=== PATIENT | male | born 1965 | race Caucasian/White ===

== ENCOUNTER 2020-03-28 11:02 | Emergency (ER) | payer MEDICARE, SELFPAY ==
--- NOTE | ~2020-03-28 | CT_ITS ---
EXAMINATION: CT abdomen pelvis w con DATE: 03/28/2020 11:51 INDICATION: Low abdominal pain. Diarrhea. TECHNIQUE: Computed tomography (CT) of the abdomen and pelvis was performed with 100 cc Omnipaque 350 intravenous contrast. Automated exposure control and iterative reconstruction technique were employe d. Exam dose: 1263.23 mGy-cm total exam DLP. COMPARISON: 04/21/2012 CT renal scan FINDINGS: Normal heart size. No pericardial or pleural effusion. There is discoid atelectasis in the lower lung zones. There is surface nodularity of the liver which suggests possible cirrhosis. Clinical correlation is v isualized. Hepatic steatosis. No hepatic space-occupying mass lesion is detected. The gallbladder is present and appears unremarkable. No bile duct or pancreatic duct dilatation. No pancreatic mass lesi on, calcification. Normal splenic size. Normal morphology of the adrenal glands. No renal mass lesion other than possible occasional small cyst is evident. Pinpoint nonobstructing lower pole left renal calculus. No urinary tract calculus or hydroureteroneph rosis is noted otherwise. Normal caliber of the abdominal aorta. No intraperitoneal or retroperitoneal or pelvic mass lesion or adenopathy or ascites is detected. No evidence of appendicitis. No bowel obstruction, bowel wall thickening, pneumatosis or intraperiton eal free air. There is moderate prostatomegaly and diffuse moderate thickening of the urinary bladder wall. Mild chronic appearing anterior wedge compression fracture deformity of T10. IMPRESSION: Surface nodularity of liver suggesting cirrhosis Hepatic steatosis Pinpoint nonobstructing lower pole left renal calculus Reviewed, dictated and finalized at [facility]. Reviewed, dictated and finalized at location A.
[2020-03-28 11:06] VITALS: BP 142/75; PULSE 90; RESP 18; TEMP 36.8; O2SAT 98
--- NOTE | 2020-03-28 11:23 | ED.NAVMDI ---
HPI - Nausea/Vomiting/Diarrhea General Chief complaint: Nausea/Vomiting/Diarrhea Stated complaint: Low Abd Pain Time Seen by Provider: 03/28/20 11:11 Source: patient Mode of arrival: ambulatory Limitations: no limitations History of Present Illness HPI Narrative: Patient presents with chief complaint of worsening diarrhea over the past week. Patient states that he has a history of chronic diarrhea for which he has been controlled with 1 Imodium daily for the past year. Patient states a year ago he had a EGD and colonoscopy which was normal and so he was instructed to take 1 Imodium daily. Patient states of the past week he has been taking 4 Imodium's daily and still has persistent frequent diarrhea. Patient denies the stool is excessively foul-smelling, bloody or with mucus. He states he was pulled off of his metformin 1 year ago as I thought the pain may be the cause he denies any recent antibiotic usage or changes in medications. Patient denies any urinary symptoms shortness of breath chest pain. Patient has any fevers, chills, nausea, vomiting, diarrhea, dizziness or weakness or any other symptoms. Patient states that he is concerned that the lower abdominal pain and persistent diarrhea despite Imodium increase. Related Data Home Medications Medication Instructions Recorded Confirmed atenolol 25 mg PO DAILY 03/28/20 atorvastatin 40 mg PO DAILY 03/28/20 bupropion HCl 200 mg PO DAILY 03/28/20 diazepam 5 mg PO TID PRN 03/28/20 doxepin 200 mg PO DAILY 03/28/20 hydrocodone-acetaminophen 5 - 325 tablet PO 03/28/20 insulin glargine [Lantus U-100 80 unit SUBCUT QPM 03/28/20 Insulin] omeprazole 20 mg PO DAILY 03/28/20 semaglutide [Ozempic] 1 mg SUBCUT WEEKLY 03/28/20 valacyclovir [Valtrex] 1,000 mg PO DAILY 03/28/20 Allergies Allergy/AdvReac Type Severity Reaction Status Date / Time meloxicam Allergy Ulcers Verified 03/28/20 11:14 Review of Systems Review of Systems: Narrative: CONSTITUTIONAL: Denies fever, chills, or sweats. EYES: Denies visual changes, redness, or discharge. ENT: Denies rhinorrhea, congestion, sore throat, or otalgia. CARDIOVASCULAR: Denies chest pain, palpitations, or edema. RESPIRATORY: Denies cough or dyspnea. GASTROINTESTINAL: Reports abdominal pain diarrhea denies nausea, vomiting GENITOURINARY: Denies dysuria or hematuria. SKIN: Denies rash or itching. MUSCULOSKELETAL: Denies back pain, joint pain, or myalgia. NEUROLOGIC: Denies headache, numbness, dizziness, or weakness. PSYCHIATRIC: Denies anxiety or depression. PMFSH Social History Social History Gender identity (if verbalized by the patient): Male Exam Narrative: Exam Narrative: GENERAL: Well-appearing, well-nourished, and in no acute distress. HEAD: Normocephalic, atraumatic. EYES: PERRLA and EOMI. ENT: Nares clear, no rhinorrhea or epistaxis. Mucous membranes moist. Oropharynx without tonsillar hypertrophy exudate or other lesions. Bilateral TMs pearly hansen nonbulging NECK: Supple. No adenopathy or masses. No carotid bruits or JVD CHEST: Clear to auscultation. No respiratory distress. No wheezes rales or rhonchi HEART: Regular rate and rhythm. ABDOMEN: Abdominal obesity noted. Soft, mild diffuse lower abdominal tenderness, no ascites appreciated, active bowel sounds. EXTREMITIES: Normal range of motion. No edema. SKIN: Warm, dry, no rash. NEURO: No focal deficits. Alert and oriented x3. Course Vital Signs Vital signs: Vital Signs Temperature 98.3 F 03/28/20 11:06 Pulse Rate 90 03/28/20 11:06 Respiratory Rate 18 03/28/20 11:06 Blood Pressure 142/75 H 03/28/20 11:06 Pulse Oximetry 98 03/28/20 11:06 Temperature 98.3 F 03/28/20 11:06 Pulse Rate 90 03/28/20 13:39 Respiratory Rate 14 03/28/20 13:39 Blood Pressure 142/72 H 03/28/20 13:39 Pulse Oximetry 98 03/28/20 13:39 MDM - Nausea/Vomiting/Diarrhea MDM Narrative Medical decision making narrative: Patient does not sh
[2020-03-28 11:34] LABS: Basophils Absolute Auto 0.1 K/mm3 (0.0-0.1); Basophils Percent Auto 0.8 % (0.2-1.2); Eosinophils Absolute Auto 0.2 K/mm3 (0-0.3); Eosinophils Percent Auto 2.1 % (0-4.4); Hematocrit 43.6 % (42.0-52.0); Hemoglobin 15.2 g/dL (14.0-18.0); Immature Granulocyte Absolute 0.03 K/mm3 (0.00-0.031); Immature Granulocyte Percent A 0.3 % (0-0.5); Immature Platelet Fraction Pct 4.6 % (0.9-11.2); Lymphocytes Absolute Auto 3.01 K/mm3 (0.9-3.2); Lymphocytes Percent Auto 32.9 % (18.3-44.2); Mean Corpuscular HGB Conc 34.9 g/dl (32-36); Mean Corpuscular Hemoglobin 33.4 pg (26-34); Mean Corpuscular Volume 95.8 fl (80-100); Mean Platelet Volume 10.9 fl (7.4-10.4); Monocytes Absolute Auto 0.8 K/mm3 (0.1-0.6); Monocytes Percent Auto 9.1 % (2.6-8.5); Neutrophils Percent Auto 54.8 % (45.5-73.1); Platelet Count Result 142 k/mm3 (150-375); Red Blood Count 4.55 M/mm3 (4.6-6.20); Red Cell Distribution Width 12.2 % (11.5-14.5); White Blood Count 9.2 K/mm3 (4.5-10.0)
[2020-03-28 11:44] LABS: Estimated CRCL calculation 123 ml/min; Estimated Glomerular Filt Rate > 60
[2020-03-28 11:51] LABS: Alanine Aminotransferase 41 U/L (4-50); Albumin Level 4.3 g/dL (3.5-5.1); Alkaline Phosphatase 122 U/L (38-126); Anion Gap 9 mmol/L (8-16); Aspartate Amino Transferase 44 U/L (17-59); Bilirubin,Total 0.5 mg/dL (0.2-1.3); Blood Urea Nitrogen 9 mg/dL (9-20); Calcium 8.6 mg/dL (8.4-10.2); Carbon Dioxide 24 mmol/L (22-30); Chloride 102 mmol/L (98-107); Estimated CRCL calculation 123 ml/min; Estimated Glomerular Filt Rate > 60; Glucose 290 mg/dL (75-110); Lipase 51 U/L (23-300); Potassium 3.6 mmol/L (3.4-5.0); Sodium 135 mmol/L (137-145)
[2020-03-28 12:55] LABS: Add Urine Microscopic? YES; Appearance Urine Clear (Clear); Bilirubin Urine Negative (Negative); Blood Urine Negative (Negative); Color Urine Yellow (Yellow); Glucose Urine UA 3+ mg/dL (Negative); Ketones Urine Negative (Negative); Leukocyte Esterase Ur Negative LEU/UL (Negative); Mucus Urine Rare /lpf; Nitrate Urine Negative (Negative); Protein Urine 1+ mg/dL (Negative); RBC Urine 0-2 /hpf (0-2); Specific Grav Ur 1.028 (1.001-1.035); Squamous Epithelial Cell Urine Rare /hpf (Few); Urobilinogen Urine Negative mg/dL (<2.0); WBC Urine 0-3 /hpf
[2020-03-28 13:39] VITALS: BP 142/72; PULSE 90; RESP 14; O2SAT 98
== END 2020-03-28 13:40 | disposition home or self-care (01) ==
PROVIDERS: Emergency Provider Emergency Medicine
DX: R19.7 Diarrhea, unspecified (principal); Z79.84 Long term (current) use of oral hypoglycemic drugs
CPT/HCPCS: 36415; 74177; 80053; 81001; 83690; 85025; 85055; 99284; Q9967

== ENCOUNTER 2021-01-29 13:41 | Outpatient (CLI) | payer MEDICARE, SELFPAY ==
--- NOTE | ~2021-01-29 | XR_ITS ---
EXAMINATION: XR knee LT min 4V DATE: 01/29/2021 14:22 INDICATION: Left knee pain. TECHNIQUE: 4 views of left knee were obtained. COMPARISON: None. FINDINGS: Bone alignment is normal. No fracture. There is mild tricompartmental osteoarthritis charac terized by tiny marginal osteophytes. No knee joint effusion. IMPRESSION: 1. Mild left knee osteoarthritis. Reviewed, dictated and finalized at location A.
--- NOTE | ~2021-01-29 | XR_ITS ---
XR lumbar spine 2-3V DATE: 01/29/2021 14:22 INDICATION: Low back pain TECHNIQUE: AP, lateral, coned lateral lumbosacral views COMPARISON: None FINDINGS: Diffuse osteopenia. Mild levoscoliosis of the thoracolumbar spine. There is an acute lumbosacral angle. No fracture or bone destruction is evident. The included lower thoracic and lumbar pedicles are intac t. No spondylolisthesis. There is mild to moderate degenerative disc disease of the lumbar spine, most prominent at L3-4. The sacroiliac joints are intact. IMPRESSION: Osteopenia Mild levoscoliosis Acute lumbosacral angle Multilevel moderate degenerative disc disease, greatest at L3-4 Reviewed, dictated and finalized at location B.
--- NOTE | ~2021-01-29 | XR_ITS ---
EXAMINATION:XR cervical spine 4-5V DATE: 01/29/2021 14:22 INDICATION: Neck pain TECHNIQUE: AP, lateral, lateral swimmers and odontoid views of the cervical spine are provided. COMPARISON: None FINDINGS: Alignment is normal. Odontoid is intact. Normal atlantoaxial interval. Vertebral body heights are no rmal. Mild disc height loss at C5-C6 and moderate disc height loss at C6-C7 with moderate to severe a ssociated uncovertebral osteoarthritis at both levels. Multilevel moderate bilateral cervical facet o steoarthritis. Prevertebral soft tissues are normal. Atherosclerotic calcification is at the bilater al carotid bulbs. IMPRESSION: 1. Moderate cervical spondylosis. Reviewed, dictated and finalized at location A.
--- NOTE | ~2021-01-29 | XR_ITS ---
EXAMINATION: XR knee RT min 4V DATE: 01/29/2021 14:22 INDICATION: Right knee pain. TECHNIQUE: 4 views of right knee were obtained. COMPARISON: None. FINDINGS: Bone alignment is normal. No fracture. There is mild osteoarthritis of medial and patellofe moral compartments characterized by tiny marginal osteophytes. No knee joint effusion. IMPRESSION: 1. Mild right knee osteoarthritis. Reviewed, dictated and finalized at location A.
[2021-01-29 15:07] LABS: Alanine Aminotransferase 46 U/L (4-50); Albumin Level 4.6 g/dL (3.5-5.1); Alkaline Phosphatase 125 U/L (38-126); Anion Gap 10 mmol/L (8-16); Aspartate Amino Transferase 51 U/L (17-59); Bilirubin,Total 0.5 mg/dL (0.2-1.3); Blood Urea Nitrogen 12 mg/dL (9-20); Calcium 9.8 mg/dL (8.4-10.2); Carbon Dioxide 26 mmol/L (22-30); Chloride 101 mmol/L (98-107); Estimated Glomerular Filt Rate > 60; Glucose 213 mg/dL (75-110); Potassium 4.1 mmol/L (3.4-5.0); Sodium 137 mmol/L (137-145)
== END 2021-01-29 13:42 | disposition home or self-care (01) ==
PROVIDERS: PCP Emergency Medicine; Visit Provider Registered Nurse Pain Management
DX: M54.16 Radiculopathy, lumbar region (principal); M54.30 Sciatica, unspecified side; M54.2 Cervicalgia; R20.0 Anesthesia of skin; M47.812 Spondylosis without myelopathy or radiculopathy, cervical region; M85.88 Other specified disorders of bone density and structure, other site; M41.86 Other forms of scoliosis, lumbar region; M51.37 Other intervertebral disc degeneration, lumbosacral region; M17.0 Bilateral primary osteoarthritis of knee
CPT/HCPCS: 36415; 72050; 72100; 73564; 80053

== ENCOUNTER 2021-03-06 15:57 | Outpatient (CLI) | payer MEDICARE, SELFPAY ==
--- NOTE | ~2021-03-06 | MR_ITS ---
EXAMINATION: MR lumbar spine wo/w con DATE: 03/06/2021 16:52 INDICATION: Lumbar radicular pain. Low back pain radiating to the right leg and foot. TECHNIQUE: Magnetic resonance imaging (MRI) of the lumbar spine was performed without and with 19 mL MultiHance intravenous contrast. Sequences included sagittal T2-weighted FSE, sagittal T2-weighted FS FSE, and sagittal and axial T1-weighted FSE. Postcontrast sequences included axial T2-weighted FSE a nd axial and sagittal T1-weighted FS FSE. COMPARISON: Lumbar spine radiographs 01/29/2021 FINDINGS: There is 8 degrees levocurvature of lumbar spine. There are Schmorl's nodes from T12-L1 thr ough L2-L3. There is a chronic left L5 pars defect. There is mildly decreased disc height at L3-L4 an d L4-L5. The distal spinal cord signal intensity is normal. The conus medullaris is at T11-T12. There are areas of enhancement in the right erector spinae muscles. The following disc levels are specific ally discussed: L1-L2: There is a left foraminal protrusion. There is mild bilateral facet joint osteoarthritis. Ther e is mild left neural foraminal stenosis. There is no central canal stenosis. L2-L3: The disc is bulging. There is mild bilateral facet joint osteoarthritis. There is mild bilater al neural foraminal stenosis. There is no central canal stenosis. L3-L4: The disc is bulging. There is mild bilateral facet joint osteoarthritis. There is moderate rig ht and mild left neural foraminal stenosis. There is mild central canal stenosis. L4-L5: The disc is bulging. There is severe bilateral facet joint osteoarthritis. There is mild bilat eral neural foraminal stenosis. There is mild central canal stenosis. L5-S1: The disc does not extend beyond the endplate margin. There is mild right and severe left facet joint osteoarthritis. There is no neural foraminal stenosis. There is no central canal stenosis. IMPRESSION: 1. Areas of enhancement in the right erector spinae muscles, most likely mild strain (grade 1). 2. Moderate right neural foraminal stenosis at L3-L4. Otherwise mild lumbar spondylosis. 3. Chronic left L5 pars defect. Reviewed, dictated and finalized at location D. IMPRESSION: 1. Areas of enhancement in the right erector spinae muscles, most likely mild s train (grade 1). 2. Moderate right neural foraminal stenosis at L3-L4. Otherwise mild lumbar spo ndylosis. 3. Chronic left L5 pars defect.
[2021-03-06 16:22] LABS: Estimated Glomerular Filt Rate > 60
== END 2021-03-06 15:58 | disposition home or self-care (01) ==
LOC: ANHIMG 15:58
PROVIDERS: PCP Emergency Medicine; Visit Provider Pain Medicine Pain Medicine
DX: M54.16 Radiculopathy, lumbar region (principal); M48.061 Spinal stenosis, lumbar region without neurogenic claudication; M47.816 Spondylosis without myelopathy or radiculopathy, lumbar region; M43.8X6 Other specified deforming dorsopathies, lumbar region
CPT/HCPCS: 72158; A9577

== ENCOUNTER 2022-07-04 08:29 | Outpatient (CLI) | payer MEDICARE, SELFPAY ==
--- NOTE | ~2022-07-04 | MR_ITS ---
EXAMINATION: MR cervical spine wo con DATE: 07/04/2022 09:18 INDICATION: Chronic neck and right shoulder pain. TECHNIQUE: Magnetic resonance imaging (MRI) of the cervical spine was performed without intravenous c ontrast. Sequences included sagittal T2-weighted FSE, sagittal T2-weighted FS FSE, sagittal T1-weight ed FSE, axial MERGE, and axial T2-weighted FSE. COMPARISON: Cervical spine radiographs 01/29/2021 FINDINGS: There is kyphosis and 11 degrees levoscoliosis of cervical spine. Vertebral body heights ar e normal. There is mildly decreased disc height at C4-C5 and moderately decreased disc height at C5-C 6 and C6-C7. The spinal cord signal intensity is normal. The following disc levels are specifically d iscussed: C2-C3: The disc does not extend beyond the endplate margin. There is no uncovertebral joint osteoarth ritis. There is severe bilateral facet joint osteoarthritis. There is mild bilateral neural foraminal stenosis. There is no central canal stenosis. C3-C4: The disc does not extend beyond the endplate margin. There is mild bilateral uncovertebral bossman nt osteoarthritis. There is severe bilateral facet joint osteoarthritis. There is moderate right neur al foraminal stenosis. There is no central canal stenosis. C4-C5: There is a central extrusion. There is mild bilateral uncovertebral joint osteoarthritis. Ther e is mild bilateral facet joint osteoarthritis. There is mild bilateral neural foraminal stenosis. Th ere is mild central canal stenosis with ventral indentation of the spinal cord. C5-C6: The disc is bulging. There is moderate bilateral uncovertebral joint osteoarthritis. There is moderate bilateral facet joint osteoarthritis. There is mild bilateral neural foraminal stenosis. The re is mild central canal stenosis with ventral indentation of the spinal cord. C6-C7: The disc is bulging. There is severe bilateral uncovertebral joint osteoarthritis. There is mo derate bilateral facet joint osteoarthritis. There is mild bilateral neural foraminal stenosis. There is mild central canal stenosis. C7-T1: The disc is bulging. There is no uncovertebral joint osteoarthritis. There is severe bilateral facet joint osteoarthritis. There is mild bilateral neural foraminal stenosis. There is mild central canal stenosis. IMPRESSION: 1. Moderate cervical spondylosis. 2. Cervical kyphosis and levoscoliosis. Reviewed, dictated and finalized at location A. SPECIALIST
== END 2022-07-04 08:30 ==
LOC: MICIMG 08:31
PROVIDERS: PCP Emergency Medicine
DX: M54.2 Cervicalgia (principal); M43.02 Spondylolysis, cervical region; M40.292 Other kyphosis, cervical region
CPT/HCPCS: 72141

== ENCOUNTER 2023-05-12 12:53 | Outpatient (CLI) | payer MEDICARE, SELFPAY ==
--- NOTE | ~2023-05-12 | CT_ITS ---
EXAMINATION:CT lung screening DATE: 05/12/2023 13:12 INDICATION: Personal history of nicotine dependence. Current smoker with 30 pack year history. TECHNIQUE: Computed tomography (CT) of the chest was performed without intravenous contrast. Automate d exposure control and iterative reconstruction technique were employed. The dose-length product (DLP ) was 294.59 mGy-cm. COMPARISON: CT abdomen and pelvis 03/28/2020 FINDINGS: There is mild emphysema. There is mild atelectasis bilaterally. Calcified left lung nodules and calcified left hilar lymph nodes are consistent with old granulomatous disease. No pleural effus ion. The heart size is normal. There are coronary artery calcifications. No pericardial effusion. Aga in seen is a large surface nodularity, consistent with cirrhosis. There is severe thoracic spondylosi s. There is a chronic compression fracture of T11. IMPRESSION: 1. Lung-RADS category 1S: Negative. Continue annual screening with noncontrast low-dose chest CT in 1 2 months. 2. Cirrhosis of the liver. Reviewed, dictated and finalized at location E. IMPRESSION: 1. Lung-RADS category 1S: Negative. Continue annual screening with noncontrast low-dose chest CT in 12 months. 2. Cirrhosis of the liver.
== END 2023-05-12 12:54 | disposition home or self-care (01) ==
LOC: ANHIMG 12:57
PROVIDERS: PCP Emergency Medicine; Visit Provider Emergency Medicine
DX: Z12.2 Encounter for screening for malignant neoplasm of respiratory organs (principal); K74.60 Unspecified cirrhosis of liver; Z87.891 Personal history of nicotine dependence
CPT/HCPCS: 71271

== ENCOUNTER 2023-05-27 08:50 | Outpatient (CLI) | payer MEDICARE, SELFPAY ==
--- NOTE | ~2023-05-27 | CT_ITS ---
EXAMINATION: CT abdomen pelvis w con INDICATION: Other cirrhosis of the liver TECHNIQUE: Computed tomographic images of the abdomen and pelvis were obtained after the administrati on of 100 cc of Omnipaque 350 intravenous contrast. The dose-length product (DLP) was 1069.95 mGy-cm. Automated exposure control and iterative reconstruction technique were employed. COMPARISON: 03/28/2020 FINDINGS: Minimal dependent atelectasis is present in the lung bases. The heart size is normal. There is nodularity of the liver surface, consistent with cirrhosis. There is a questionable subcapsular 6 mm enhancing lesion in liver segment (image 81). Punctate calcifications in an otherwise normal s pleen likely represent healed granulomatous disease. The pancreas, gallbladder, and adrenal glands ar e normal. Hypoattenuating lesions in the kidneys, measuring up to 8 mm on the left, are too small to characterize but likely represent cysts. There is mild, chronic periportal lymphadenopathy. No free i ntraperitoneal gas or evidence of bowel obstruction. The appendix is normal. There is moderate lumbar spondylosis. There is an umbilical hernia containing fat. IMPRESSION: 1. Cirrhosis with questionable enhancing subcapsular lesion in liver segment . Further evaluation b y MRI without and with contrast is recommended. 2. Chronic periportal lymphadenopathy, likely reactive. Reviewed, dictated and finalized at location L. STATION MANAGER IMPRESSION: 1. Cirrhosis with questionable enhancing subcapsular lesion in liver segment . Further evaluation by MRI without and with contrast is recommended. 2. Chronic periportal lymphadenopathy, likely reactive.
[2023-05-27 09:14] LABS: Estimated Glomerular Filt Rate > 60
== END 2023-05-27 08:51 | disposition home or self-care (01) ==
PROVIDERS: PCP Emergency Medicine; Visit Provider Emergency Medicine
DX: K74.69 Other cirrhosis of liver (principal); R59.0 Localized enlarged lymph nodes
CPT/HCPCS: 74177; Q9967

== ENCOUNTER 2023-06-14 12:46 | Outpatient (CLI) | payer MEDICARE, SELFPAY ==
--- NOTE | ~2023-06-14 | XR_ITS ---
EXAMINATION: XR hip RT min 2V DATE: 06/14/2023 14:12 INDICATION: Nontraumatic right hip pain TECHNIQUE: Anteroposterior and frog-leg lateral views of the right hip were obtained. COMPARISON: CT abdomen pelvis dated 06/06/2023 FINDINGS: Alignment is normal. No fracture or suspected osteonecrosis. Mild left hip osteoarthritis with and mi ld posterior predominant nonuniform joint space narrowing which is better appreciated on the prior CT . There is also mild bilateral sacroiliac osteoarthritis. Small phlebolith in the right hemipelvis. IMPRESSION: 1. Mild right hip and bilateral sacral iliac osteoarthritis. No acute osseous abnormality. Reviewed, dictated and finalized at location A. ARISON SHOPPER IMPRESSION: 1. Mild right hip and bilateral sacral iliac osteoarthritis. No acute osseous a bnormality.
--- NOTE | ~2023-06-14 | MR_ITS ---
EXAMINATION: MR abdomen wo/w con DATE: 06/14/2023 14:00 INDICATION: Hepatic focal nodular hyperplasia TECHNIQUE: Magnetic resonance imaging (MRI) of the abdomen was performed without and with 17 mL Multi dee intravenous contrast. Sequences included coronal T2-weighted SS-FSE, coronal and axial FS 2D-F IESTA, axial STIR FSE, axial T2-weighted SS-FSE, axial T2-weighted FS SS-FSE, axial diffusion-weighte d SE, axial dual-echo T1-weighted FSPGR, and axial and coronal T1-weighted LAVA. Postcontrast axial T 1-weighted LAVA images were obtained in a time course. Postcontrast coronal T1-weighted LAVA images w ere obtained. COMPARISON: CT abdomen pelvis dated 06/06/2023 and 03/28/2020 FINDINGS: Heart size is normal. No pericardial or pleural effusion. Cirrhotic liver with nodular surface. Again seen is a subcentimeter ill-defined focus of nonperipheral arterial phase enhancement at the lateral subcapsular region of the right hepatic lobe which normalizes to the level of enhancement of the molly rounding liver on the more delayed images which is without correlate on the noncontrast sequences. Th ere is a second subcapsular nonperipheral arterially enhancing lesion anterior segment 2 of the liver . Both are without evident capsule or washout. Findings would be consistent with a LI-RADS 3 lesions. There is a third slightly larger lesion with nonperipheral arterial phase enhancement measuring 1.8 cm on the arterial phase image corresponding to an 11 mm region of increased T2 signal in segment 2A of the liver which is also without discernible capsule or washout and also consistent with a LI-RADS 3 lesion. No other hepatic lesions identified. The spleen, pancreas and bilateral adrenal glands are normal. There are few subcentimeter T2 hyperintense nonenhancing bilateral renal cysts. Visualized po rtions of bowels are unremarkable. Again seen are couple mildly enlarged periportal lymph nodes which are without interval change since 2019 and are likely reactive. No other pathologically enlarged abd ominal lymphadenopathy. 13 degrees lumbar levoscoliosis with mild spondylosis. Normal bone marrow sig nal throughout. IMPRESSION: 1. Cirrhotic liver with 3 LI-RADS 3 lesions with intermediate probability of malignancy, the largest measuring 1.8 cm. Recommend repeat pre and postcontrast MRI in 3-6 months. Reviewed, dictated and finalized at location A. ITECT INTERN IMPRESSION: 1. Cirrhotic liver with 3 LI-RADS 3 lesions with intermediate probability of ma lignancy, the largest measuring 1.8 cm. Recommend repeat pre and postcontrast M RI in 3-6 months.
== END 2023-06-14 12:47 | disposition home or self-care (01) ==
PROVIDERS: PCP Emergency Medicine; Visit Provider Emergency Medicine
DX: K76.89 Other specified diseases of liver (principal); M16.0 Bilateral primary osteoarthritis of hip
CPT/HCPCS: 73502; 74183; A9577

== ENCOUNTER 2023-07-06 00:11 | Day surgery (SDC) | payer MEDICARE, SELFPAY ==
[2023-06-18 13:39] VITALS: BMI 30.1
--- NOTE | 2023-07-02 10:35 | SUR.PREOP ---
Patient called regarding upcoming procedure. Message left on pt's voicemail regarding appointment times.
[2023-07-06 08:58] VITALS: BP 151/74; PULSE 98; RESP 20; TEMP 36.3; O2SAT 98; BMI 32.9
--- NOTE | 2023-07-06 09:06 | SUR.PREOP ---
MD Armando aware. no new orders. will continue with procedure.
[2023-07-06] MEDS: LACTATED RINGERS 1,000 ML 150 ML IV CONT (09:24)
[2023-07-06 09:27] LABS: Glucose Point of Care 120 mg/dl (65-105)
--- NOTE | 2023-07-06 09:27 | WPDANESEPPF ---
Anes - Initial Pre Proc Eval Procedure: Operation Date: 07/06/23 10:30 Proposed Procedures p Esophagogastroduodenoscopy & Colonoscopy - Joao Doll MD Date/Time: 07/06/23 09:27 Surgeon: Joao Doll MD Pre Op Diagnosis: GERD,gastric ulcer,weightloss,hx of polyps Patient Data Age: 58 Gender: M Height: 1.68 m Weight: 92.6 kg Last Vital Signs Temp 36.3 C L 07/06/23 08:58 Pulse 98 07/06/23 08:58 Resp 20 07/06/23 08:58 BP 151/74 H 07/06/23 08:58 Pulse Ox 98 07/06/23 08:58 O2 Del Method Room Air 07/06/23 08:58 Allergies Allergy/AdvReac Type Severity Reaction Status Date / Time meloxicam Allergy Ulcers Verified 07/06/23 08:57 Home Medications Medication Instructions Recorded Confirmed Type atenolol 25 mg tablet 25 mg PO DAILY 03/28/20 06/18/23 History bupropion HCl 200 mg tablet,12 hr 200 mg PO DAILY 03/28/20 06/18/23 History sustained-release diazepam 5 mg tablet 5 mg PO TID PRN Anxiety 03/28/20 06/18/23 History doxepin 100 mg capsule 200 mg PO DAILY 03/28/20 06/18/23 History hydrocodone 5 mg-acetaminophen 325 1 tablet PO BID 03/28/20 06/18/23 History mg tablet insulin glargine 100 unit/mL 80 unit subcut QPM 03/28/20 06/18/23 History subcutaneous solution (Lantus U-100 Insulin) omeprazole 20 mg capsule,delayed 20 mg PO DAILY 03/28/20 06/18/23 History release semaglutide 1 mg/dose (2 mg/1.5 1 mg subcut WEEKLY 03/28/20 06/18/23 History mL) subcutaneous pen injector (Ozempic) valacyclovir 1 gram tablet 1,000 mg PO DAILY 03/28/20 06/18/23 History (Valtrex) gabapentin 300 mg capsule 300 mg PO DAILY 05/18/23 06/18/23 History Patient hx anesthesia problems: none Family hx anesthesia problems: none Results Review: All pre-operative results and documents have been reviewed as part of the pre-operative evaluation. [facility] Past Medical History Medical History (Updated 07/06/23 @ 09:28 by Wei Armando MD) Diabetes HTN (hypertension) Myocardial infarct Obesity DOUG (obstructive sleep apnea) Social History Social History Smoking packs per day: 1.5 Smoking cigarettes per day: 30.0 Years smoked: 30 Smoking pack-years: 45.00 Smoking status: Former smoker Tobacco type: cigarettes Alcohol intake: former Alcohol use details: Hx of alcohol abuse in the 80's & 90's. Vodka or Rum 5th a day Substance use: current Substance use type: opiates Other substance usage details: hydrocodone 5-acetaminophen 325 bid to tid Living arrangements: alone Gender identity (if verbalized by the patient): Male Sexual Orientation (if Verbalized by the Patient): Straight or Heterosexual Spiritual care concerns: No Anes - Eval Final PreProcedure Day of Procedure 07/06/23 09:27 Patient weight: obese Heart: regular rate and rhythm Lungs: clear to auscultation Airway: Mallampati scale class III Neurological: alert and oriented Last oral intake: >/= 8 hours ASA classification: III Emergent: no Anesthetic plan: proceed Anesthesia type and monitoring: general GIVS and standard monitoring Results Review: All pre-operative results and documents have been reviewed as part of the pre-operative evaluation. Informed Consent: The patient's anesthetic plan and its attendant risks and benefits were discussed with the patient/family/POA. Questions were solicited and answers provided to the satisfaction of the patient/family/POA.
--- NOTE | 2023-07-06 10:09 | PM.HPGS ---
History of Present Illness History of Present Illness Consent: Risks, benefits, and alternatives have been discussed and questions answered. Patient agrees to proceed with procedure. Chief complaint: GERD,gastric ulcer,weightloss,hx of polyps Narrative: Lupillo Tariq Jr. is a 58 year old male with gerd on ppi, DM on medication. Recently incidental finding of cirrhosis (denies alcohol, probably zamudio related) and he was already referred to see gem stone cutter for early next year. Also h/o diarrhea for about 1.5 year and he is getting creon from [email or web address], this is helping. Had colon polyp about 4.5 years ago. Review of Systems Constitutional: Constitutional: Denies headache(s) and Denies weakness Eyes: Eyes: Denies blurry vision ENT: Reports Normal hearing present, Denies headache(s) and Denies neck pain Cardiovascular: Cardiovascular: Denies chest pain and Denies dyspnea Respiratory: Respiratory: Denies dyspnea Gastrointestinal: Gastrointestinal: Reports no additional gastrointestinal complaints Genitourinary: Genitourinary: Denies dysuria Musculoskeletal: Musculoskeletal: Denies neck pain Integumentary/Breasts: Skin/Breast: Denies dry skin Neurologic: Reports Normal hearing present, Denies headache(s) and Denies weakness Psychiatric: Psychiatric: Denies anxiety Endocrine: Endocrine: Denies change in body appearance Hematologic/Lymphatic: Hematologic/Lymphatic: Denies easy bleeding Allergic/Immunologic: Allergic/Immunologic: Denies urticaria PMFSH Past Medical History Medical History (Updated 07/06/23 @ 10:11 by Joao Doll MD) Cirrhosis Colon polyp Diabetes GERD (gastroesophageal reflux disease) HTN (hypertension) Myocardial infarct Obesity DOUG (obstructive sleep apnea) Social History Social History Smoking packs per day: 1.5 Smoking cigarettes per day: 30.0 Years smoked: 30 Smoking pack-years: 45.00 Smoking status: Former smoker Tobacco type: cigarettes Alcohol intake: former Alcohol use details: Hx of alcohol abuse in the 80's & 90's. Vodka or Rum 5th a day Substance use: current Substance use type: opiates Other substance usage details: hydrocodone 5-acetaminophen 325 bid to tid Living arrangements: alone Gender identity (if verbalized by the patient): Male Sexual Orientation (if Verbalized by the Patient): Straight or Heterosexual Spiritual care concerns: No Meds Home Medications and Allergies Home Medications Medication Instructions Recorded Confirmed Type atenolol 25 mg tablet 25 mg PO DAILY 03/28/20 06/18/23 History bupropion HCl 200 mg tablet,12 hr 200 mg PO DAILY 03/28/20 06/18/23 History sustained-release diazepam 5 mg tablet 5 mg PO TID PRN Anxiety 03/28/20 06/18/23 History doxepin 100 mg capsule 200 mg PO DAILY 03/28/20 06/18/23 History hydrocodone 5 mg-acetaminophen 325 1 tablet PO BID 03/28/20 06/18/23 History mg tablet insulin glargine 100 unit/mL 80 unit subcut QPM 03/28/20 06/18/23 History subcutaneous solution (Lantus U-100 Insulin) omeprazole 20 mg capsule,delayed 20 mg PO DAILY 03/28/20 06/18/23 History release semaglutide 1 mg/dose (2 mg/1.5 1 mg subcut WEEKLY 03/28/20 06/18/23 History mL) subcutaneous pen injector (Ozempic) valacyclovir 1 gram tablet 1,000 mg PO DAILY 03/28/20 06/18/23 History (Valtrex) gabapentin 300 mg capsule 300 mg PO DAILY 05/18/23 06/18/23 History Allergies Allergy/AdvReac Type Severity Reaction Status Date / Time meloxicam Allergy Ulcers Verified 07/06/23 08:57 Vital Signs Vital Signs - 24 hr 07/06/23 08:58 Temperature 97.4 F L Pulse Rate 98 Respiratory Rate 20 Blood Pressure 151/74 H Pulse Oximetry 98 Oxygen Delivery Room Air Exam Const: General: comfortable and no acute distress HENMT: Face/Nose/Sinus: Normal nares present Eyes: General: appearance normal, both eyes and all related structu
--- NOTE | 2023-07-06 10:22 | SUR.OPER ---
EGD: [id number] COLON: Start 1026
[2023-07-06 10:46] VITALS: BP 109/71; PULSE 87; RESP 15; O2SAT 97
[2023-07-06 10:56] VITALS: BP 121/83; PULSE 86; RESP 22; O2SAT 98
[2023-07-06 11:06] VITALS: BP 118/79; PULSE 85; RESP 22; O2SAT 100
== END 2023-07-06 11:16 | disposition home or self-care (01) ==
PROVIDERS: PCP Emergency Medicine; Visit Provider Internal Medicine Gastroenterology
PROC: 0DJ08ZZ Inspection of Upper Intestinal Tract, Via Natural or Artificial Opening Endoscopic (ICD-10-PCS; CPT 43235; principal; 2023-07-06 10:30)
DX: K29.50 Unspecified chronic gastritis without bleeding (principal); K31.84 Gastroparesis; K29.80 Duodenitis without bleeding; K21.9 Gastro-esophageal reflux disease without esophagitis; D12.3 Benign neoplasm of transverse colon; K52.832 Lymphocytic colitis; K74.60 Unspecified cirrhosis of liver; E11.9 Type 2 diabetes mellitus without complications; I25.2 Old myocardial infarction; F32.A Depression, unspecified; I10 Essential (primary) hypertension; G47.33 Obstructive sleep apnea (adult) (pediatric); F11.90 Opioid use, unspecified, uncomplicated; Z87.891 Personal history of nicotine dependence; Z79.4 Long term (current) use of insulin; Z79.85 Long-term (current) use of injectable non-insulin antidiabetic drugs; Z79.899 Other long term (current) drug therapy
CPT/HCPCS: 43239; 45385; 45380; 82948; 88305; J2704; J7120

== ENCOUNTER 2023-07-27 15:17 | Emergency (ER) | payer MEDICARE, SELFPAY ==
--- NOTE | ~2023-07-27 | XR_ITS ---
XR chest 2V DATE: 07/27/2023 15:55 INDICATION: Cough, congestion TECHNIQUE: 2 views COMPARISON: 05/12/2023 CT lung screening FINDINGS: Normal heart size. No hilar or mediastinal enlargement. No pulmonary infiltrate or consolid ation, pleural effusion or pulmonary vascular congestion or pneumothorax is detected. Degenerative spurring of the thoracic spine. IMPRESSION: No active cardiopulmonary disease Reviewed, dictated and finalized at location L. PATIAL SYSTEMS INTEGRATOR
[2023-07-27 15:28] VITALS: BP 100/63; PULSE 79; RESP 16; TEMP 37.1; O2SAT 95
--- NOTE | 2023-07-27 15:51 | ED.URI ---
HPI - URI/Sore Throat General Chief Complaint: Upper Respiratory Infection Stated Complaint: Sinus Time Seen by Provider: 07/27/23 15:30 Source: patient Mode of arrival: ambulatory Limitations: no limitations History of Present Illness HPI Narrative: Lupillo is a 58-year-old male patient presenting to the clinic today with complaints of cough, sore throat, nasal congestion, mild shortness breath, he denies any fever but feels hot. No chills. MD elicited complaint: cough, sore throat and nasal congestion Related Data Home Medications Medication Instructions Recorded Confirmed atenolol 25 mg tablet 25 mg PO DAILY 03/28/20 06/18/23 bupropion HCl 200 mg tablet,12 hr 200 mg PO DAILY 03/28/20 06/18/23 sustained-release diazepam 5 mg tablet 5 mg PO TID PRN Anxiety 03/28/20 06/18/23 doxepin 100 mg capsule 200 mg PO DAILY 03/28/20 06/18/23 hydrocodone 5 mg-acetaminophen 325 1 tablet PO BID 03/28/20 07/27/23 mg tablet insulin glargine 100 unit/mL 80 unit subcut QPM 03/28/20 06/18/23 subcutaneous solution (Lantus U-100 Insulin) omeprazole 20 mg capsule,delayed 20 mg PO DAILY 03/28/20 06/18/23 release semaglutide 1 mg/dose (2 mg/1.5 1 mg subcut WEEKLY 03/28/20 06/18/23 mL) subcutaneous pen injector (Ozempic) valacyclovir 1 gram tablet 1,000 mg PO DAILY 03/28/20 06/18/23 (Valtrex) gabapentin 300 mg capsule 300 mg PO DAILY 05/18/23 07/27/23 Allergies Allergy/AdvReac Type Severity Reaction Status Date / Time meloxicam Allergy Ulcers Verified 07/06/23 08:57 Review of Systems Review of Systems: Pertinent positives per HPI. Patient denies any fever, chills, rash, headache, visual changes, dizziness, shortness of breath, chest pain, palpitations, nausea, vomiting, diarrhea, constipation, abdominal pain, or any urinary issues. [facility] Past Medical History Medical History Cirrhosis Colon polyp Diabetes GERD (gastroesophageal reflux disease) HTN (hypertension) Myocardial infarct Obesity DOUG (obstructive sleep apnea) Social History Social History Smoking packs per day: 1.5 Smoking cigarettes per day: 30.0 Years smoked: 30 Smoking pack-years: 45.00 Smoking status: Former smoker Tobacco type: cigarettes Alcohol intake: former Alcohol use details: current use rare occasional glass of wine, hx of alcohol abuse (5th of Vodka or Rum daily) Substance use: current Substance use type: opiates Other substance usage details: hydrocodone 5-acetaminophen 325 bid to tid Living arrangements: alone Gender identity (if verbalized by the patient): Male Sexual Orientation (if Verbalized by the Patient): Straight or Heterosexual Spiritual care concerns: No Comments At the time of my signature, I reviewed and agree with the nursing past medical, surgical, social, and family history. There is no relevant family history pertinent to the patient complaint. Exam Narrative: General: Well-developed, well nourished, in no apparent distress Head: Normocephalic, atraumatic Eyes: Pupils equally round and reactive to light bilaterally, EOM intact, sclera and conjunctive clear, no discharge, lids normal Ears: TMs intact and clear, ear canals clear, no drainage, grossly hearing normal. Nose: Nares patent, clear nasal discharge, no inflammation, no sinus tenderness. Mouth: Oral pharynx red without lesions or masses, good dentition, MMM. Neck: Supple, trachea midline, no enlargement of anterior or posterior cervical nodes, no thyroid masses or goiter palpable. Cardio: Regular rate and rhythm, s1 and s2 normal, no murmur appreciated. Resp: Diminished in the bases otherwise clear, no rhonchi, rales, wheezing or rubs Course Course Emergency Course: Portions of this record may have been created with voice recognition software. Level of Care: Express Care Visit Vital Signs Vital
== END 2023-07-27 16:20 | disposition home or self-care (01) ==
PROVIDERS: Emergency Provider Nurse Practitioner Family; PCP Emergency Medicine
DX: B34.9 Viral infection, unspecified (principal); J06.9 Acute upper respiratory infection, unspecified; I10 Essential (primary) hypertension; E11.9 Type 2 diabetes mellitus without complications; Z79.899 Other long term (current) drug therapy; Z87.891 Personal history of nicotine dependence; Z20.822 Contact with and (suspected) exposure to COVID-19
CPT/HCPCS: 71046; 87081; 87426; 87804; 87880; 99213; G0463

== ENCOUNTER 2024-06-01 10:12 | Outpatient (CLI) | payer MEDICARE, SELFPAY ==
--- NOTE | ~2024-06-01 | CT_ITS ---
EXAMINATION: CT lumbar spine wo con DATE: 06/01/2024 10:34 INDICATION: Severe left-sided low back pain radiating to the left lower extremity. Lumbar spondylosis . TECHNIQUE: Computed tomography (CT) of the lumbar spine was performed without intravenous contrast. A utomated exposure control and iterative reconstruction technique were employed. The dose-length produ ct was 801.92 mGy-cm. COMPARISON: Lumbar spine MRI 03/06/2021 FINDINGS: There is 14 degrees levoscoliosis of lumbar spine. There are Schmorl's nodes at multiple le vels. There is severely decreased disc height at L3-L4 and moderately decreased disc height at L4-L5. There is a chronic left L5 pars defect. The following disc levels are specifically discussed: L1-L2: The disc is bulging. There is moderate right and mild left facet joint osteoarthritis. There i s mild bilateral neural foraminal stenosis. There is mild central canal stenosis. L2-L3: The disc is bulging. There is mild right and severe left facet joint osteoarthritis. There is mild bilateral neural foraminal stenosis. There is mild central canal stenosis. L3-L4: The disc is bulging with superimposed right foraminal extrusion. There is severe right and mil d left facet joint osteoarthritis. There is moderate right and mild left neural foraminal stenosis. T here is mild central canal stenosis. L4-L5: The disc is bulging. There is severe right and moderate left facet joint osteoarthritis. There is mild bilateral neural foraminal stenosis. There is mild central canal stenosis. L5-S1: The disc is bulging. There is severe bilateral facet joint osteoarthritis. There is mild bilat eral neural foraminal stenosis. There is no central canal stenosis. IMPRESSION: 1. Severe lumbar spondylosis, mildly worsened from 03/06/2021. 2. Lumbar levoscoliosis. 3. Chronic left L5 pars defect. Reviewed, dictated and finalized at location A. RD[employer] SUBSTANCES SCIENTIST
== END 2024-06-01 10:13 | disposition home or self-care (01) ==
LOC: MICIMG 10:14
PROVIDERS: PCP Emergency Medicine; Visit Provider Pain Medicine Pain Medicine
DX: M47.816 Spondylosis without myelopathy or radiculopathy, lumbar region (principal); M41.86 Other forms of scoliosis, lumbar region; M89.78 Major osseous defect, other site
CPT/HCPCS: 72131

== ENCOUNTER 2025-03-26 15:22 | Inpatient (IN) | payer MEDICARE, OTHER, SELFPAY ==
--- OUTSIDE RECORDS SUMMARY | 2025-02-18 15:56 | XMS_ITS | Continuity of Care Document ---
Author Organization [facility] Address [address] [place] [address] [place] [address] Phone Care Team Providers Care Jailkeeper Name Role Phone Dennis Camejo MD Unavailable Unavailable Allergies, Adverse Reactions, Alerts Substance Reaction Status Criticality meloxicam Active No Information Medications Medication Instructions Dosage Effective Dates (start - stop) Status Comments omeprazole 40 mg capsule,delayed release take 1 capsule by oral route every day before a meal 40 MG - Active Reglan 10 mg tablet take 1 tablet by oral route 3 times every day 10 MG - Active Crestor 40 mg tablet take 1 tablet by oral route every day 40 MG - Active fenofibrate 54 mg tablet take 1 tablet by oral route every day 54 MG - Active albuterol sulfate HFA 90 mcg/actuation aerosol inhaler inhale 1 puff by inhalation route every 4 - 6 hours as needed as needed 1 puff - Active PRN for sob Creon 24,000-76,000-120,0 00 unit capsule,delayed release take 1 capsule by oral route 3 times every day with meals and 1 capsule with each snack 1 capsule - Active Cymbalta 30 mg capsule,delayed release take 1 capsule by oral route every day 30 MG - Active doxepin 150 mg capsule take 1 capsule by oral route every day at bedtime 150 MG - Active Jardiance 25 mg tablet take 1 tablet by oral route every day in the morning 25 MG - Active Neurontin 300 mg capsule take 1 capsule by oral route 2 times every day 300 MG - Active vilazodone 40 mg tablet take 1 tablet by oral route every day with food 40 MG - Active doxepin 100 mg capsule take 1 capsule by oral route every day at bedtime 100 MG - Active Seroquel 300 mg tablet take 1 tablet by oral route every bedtime 300 MG - Active atenolol 50 mg tablet take 1 tablet by oral route every day 50 MG - Active Valtrex 1 gram tablet take 1 tablet by oral route every day 1000 MG - Active Amaryl 4 mg tablet take 1 tablet by oral route every day 4 MG - Active Ozempic 1 mg/dose (2 mg/1.5 mL) subcutaneous pen injector inject (1MG) by subcutaneous route every week on the same day of each week, in the abdomen, thighs, or upper arm rotating injection sites - Active Lantus Solostar U-100 Insulin 100 unit/mL (3 mL) subcutaneous pen inject by subcutaneous route as per insulin protocol 0.00 - Active 70 units SC daily Valium 5 mg tablet take 1 tablet by oral route 2 times every day 5 MG - Active Wellbutrin XL 300 mg 24 hr tablet, extended release take 1 tablet by oral route every morning 300 MG - Active Procedures Procedure Date OFFICE/OUTPATIENT VISIT, EST PREV VISIT, EST, AGE 40-64 OFFICE/OUTPATIENT VISIT, EST OFFICE/OUTPATIENT VISIT, EST OFFICE/OUTPATIENT VISIT, EST OFFICE/OUTPATIENT VISIT, EST OFFICE/OUTPATIENT VISIT, EST OFFICE/OUTPATIENT VISIT, EST OFFICE/OUTPATIENT VISIT, EST OFFICE/OUTPATIENT VISIT, EST OFFICE/OUTPATIENT VISIT, EST PREV VISIT, EST, AGE 40-64 OFFICE/OUTPATIENT VISIT, EST OFFICE/OUTPATIENT VISIT, EST OFFICE/OUTPATIENT VISIT, NEW Advance Directives Directive Yes / No Effective Date File Name No Information Encounters Encounter Description Practice Location Reason(s) For Visit Diagnoses Date Provider Providers Copied on Encounter [facility], [place], [address], [place], [place], [id number], [place] tel:[phone] [facility] [place] No Information 5 Bashir Ponce [address], [place], [place], [address] , [place]. [phone] OFFICE/OUTPA TIENT VISIT, EST [facility], [place], [address], [place], [place], [address], [place] [phone] [facility] [place] gastropare sis1 (chief complaint) HLP (chief complaint) GastroparesisGERD w/o esophagitisMixed hyperlipidemiaTobac co use 5 Bashir Ponce [address], [place], [place], [address] , [place]. tel:[phone] PREV VISIT, EST, AGE 40-64 [facility], [place], [address], [place], [place], [address], [place] [phone] [facility] [place] physical (chief complaint) Encounter for general adult medical examination without abnormal findings 5 Bashir Ponce [address], [place], [place], [address] , [place]. tel:[phone] OFFICE/OUTPA TIENT VISIT, EST [facility], [place], [address], [place], [place], [address], [place] tel:[phone] [facility] [place] osteomyeli tis1 (chief complaint) Other acute osteomyelitis, left ankle and footAcquired absence of other left toe(s) 5 Bashir Ponce [address], [place], [place], [address] , [place]. tel:[phone] OFFICE/OUTPA TIENT VISIT, EST [facility], [place], [address], [place], [place], [address], [place] tel:[phone] [facility] [place] toe (chief complaint) liver1 (chief complaint) HLP (chief complaint) Mixed hyperlipidemiaHepat ic focal nodular hyperplasiaType 2 diabetes mellitus with diabetic mononeuropathyCellu litis of left toeAcquired absence of other left toe(s) 5 Bashir Ponce [address], [address], [place], [place], [address] , [place]. tel:[phone] OFFICE/OUTPA TIENT VISIT, [facility], [address], [place], [place], [address], [place] tel:[phone] [facility] [place] HLP (chief complaint) Liver1 (chief complaint) Hepatic focal nodular hyperplasiaOther cirrhosis of liverMixed hyperlipidemia 4 Bashir Ponce [address], [place], [place], [address] , [place]. tel:[phone] OFFICE/OUTPA TIENT VISIT, [facility], [address] [place], [address], [place] tel:[phone] [facility] [place] sick (chief complaint) liver1 (chief complaint) DM (chief complaint) skin (chief complaint) Other cirrhosis of liverHepatic focal nodular hyperplasiaAcute bronchitisType 2 diabetes mellitus with diabetic mononeuropathyAbnor mal weight lossPsoriasis 4 Bashir Collins. [address], [address], [place], [place], [address] , [place]. tel:[phone] OFFICE/OUTPA TIENT VISIT, [facility], [address], [address], [place] tel:[phone] [facility] [place] sick (chief complaint) Acute bronchitis 4 Bashir Collins. [address], [place], [place], [address] , [place]. tel:[phone] OFFICE/OUTPA TIENT VISIT, [facility], [address], [place], [place], [address], [place] tel:[phone] [facility] [place] GERD1 (chief complaint) GERD w/o esophagitisPolyp of colonOther cirrhosis of liverType 2 diabetes mellitus with diabetic mononeuropathyGastr oparesis 3 Camejo Dennis. [address], [address], [place], [place], [address] , [place]. tel:[phone] OFFICE/OUTPA TIENT VISIT, EST [facility], [place], [address], [place], [place], [address], [place] tel:[phone] [facility] [place] liver cirrhosis1 (chief complaint) HLP (chief complaint) Other cirrhosis of liverMixed hyperlipidemiaGERD w/o esophagitis 3 Camejo Dennis. [address], [place], [place], [address] , [place]. tel:[phone] OFFICE/OUTPA TIENT VISIT, [facility], [address], [place], [place], [address], [place] tel:[phone] [facility] [place] liver cirrhosis1 (chief complaint) Other cirrhosis of liverLymphadenopath yHepatic focal nodular hyperplasia 3 Camejo Dennis. [address], [place], [place], [address] , [place]. tel:[phone] OFFICE/OUTPA TIENT VISIT, [facility], [address], [place], [place], [address], [place] tel:[phone] [facility] [place] HLP (chief complaint) DM (chief complaint) liver cirrhosis1 (chief complaint) Type 2 diabetes mellitus with diabetic mononeuropathyMixed hyperlipidemiaOther cirrhosis of liverExocrine pancreatic insufficiencyPolyp of colon 3 Camejo Dennis. [address], [place], [place], [address] , [place]. tel:[phone] PREV VISIT, EST, AGE 40-64 [facility] [place], [address], [place], [place], [address], [place] tel:[phone] [facility] [place] physical (chief complaint) Encounter for general adult medical exam w abnormal findingsGERD w/o esophagitisPolyp of colonType 2 diabetes mellitus with diabetic mononeuropathyAbnor mal weight lossCoronary artery disease of [place] coronary artery without angina pectorisGeneralized Anxiety DisorderMixed hyperlipidemia 3 Bashir Collins. [address], [place], [place], [address] , [place]. tel:[phone] OFFICE/OUTPA TIENT VISIT, [facility], [address], [place], [place], [address], [place] tel:[phone] [facility] [place] chest pain1 (chief complaint) Chest painCAD of [place] coronary artery with angina pectorisEssential (primary) hypertension 2 Bashir Collins. [address], [place], [place], [address] , [place]. tel:[phone] [facility] [place], [address], [address], [place] tel:[phone] [facility] [place] No Information 1 Bashir Ponce [address], [place], [place], [address] , [place]. tel:[phone] OFFICE/OUTPA TIENT VISIT, [facility], [address], [place], [place], [address], [place] tel:[phone] [facility] [place] Sleep apnea1 (chief complaint) gastric ulcer1 (chief complaint) CAD (chief complaint) DM (chief complaint) chronic pain1 (chief complaint) Sleep apneaHyperlipidemia Chronic gastric ulcer without perforationChronic pain syndromeAnxietyType 2 diabetes mellitus without complicationsHerpes simplex infection 1 Bashir Ponce [address], [place], [place], [address] , [place]. tel:[phone] Family History Family Member Type Diagnosis Age At Onset Brother Problem Obesity Mother Problem unknown Father Problem of 65 unknown Payers Payer name Insurance type Covered libertarian [id number] Social History Type Description Quantity Date Captured Comments Alcohol Use Details Unknown Caffeine Use Details Unknown Tobacco Use Status Smoking Status No Information Sex Male Chief Complaint And Reason For Visit No Information Plan Of Treatment Date Type Action Status Referral Ordered: Physical Therapy (related to Other acute osteomyelitis, left ankle and foot) ordered Referral Referred To: Physical Therapy Ordered: Referrals: Physical Therapy. Evaluate and treat ordered Referral Ordered: Vascular Surgery (related to Acquired absence of other left toe(s)) ordered Referral Ordered: Referrals: Vascular Surgery. Evaluate and treat ordered Referral Ordered: Joao Doll -[facility] : Internal Medicine : Gastroenterology (related to Gastroparesis) ordered Referral Ordered: Rodrigo Bolanos -[facility] : Internal Medicine : Gastroenterology (related to Other cirrhosis of liver) ordered Referral Referred To: Rodrigo Bolanos [address] [place], [place], [id number] Ordered: Referrals: [facility] Phys[facility] : Internal Medicine : Gastroenterology. Rodrigo Bolanos. Evaluate and treat ordered Referral Ordered: MRI ABDOMEN W/O & W/DYE ordered Referral Ordered: Joao Doll -[facility] : Internal Medicine : Gastroenterology (related to Other cirrhosis of liver) ordered Referral Referred To: Joao Doll [address], [place], [phone] Ordered: Referrals: [facility]opathic Physicians : Internal Medicine : Gastroenterology. Joao Doll. Evaluate and treat ordered Referral Ordered: CT ABDOMEN&PELVIS W/CONTRAST ordered Referral Ordered: CT THORAX W/O DYE ordered Referral Ordered: COLONOSCOPY AND BIOPSY ordered Referral Ordered: Cardiology (related to Chest pain) ordered Referral Ordered: CARDIOVASCULAR STRESS TEST ordered Referral Ordered: Referrals: Cardiology. Evaluate and treat ordered Referral Ordered: Pain Medicine (related to Chronic pain syndrome) ordered Referral Ordered: Referrals: Pain Medicine. Evaluate and treat ordered History Of Present Illness Encounter Date Complaint History Of Prese nt Illness HLP Pt has HLP Pt ta kes crestor and feno. Pt denies any myalgia. gastroparesis1 Pt has gastropar esis with chronic nausea. Pt takes reglan and doing ok. Pt needs reglan refilled . Pt also has GERd Pt takes omeprazole and doing ok physical Pt needs annual physical pt has multiple complicated medical issue Pt has HLP and VIGIL. Pt sees liver specialist. Pt has liver lesion and he thinks that he had MRI done last year for follow up but he is not sure. He has not seen grinder operator surface tool for a while. He has DM and anxiety and depression and he is seeing PCP and specialists at [place] for above. he has been on vancomycin daily for osteomyelitis left foot for the past several weeks at shelter and he is released to home with oral doxycycline and he will attend wound care clinic at [facility] next week with hyperbaric chamber. Pt is very confused about his overwhelming medical conditions. He states that his left foot wound is stable without drainage now Pt denies any fever osteomyelitis1 pt had left 2nd and 3rd toe amputation recently by [place] vascular surgeon 2-3 months ago and he developed osteomyelitis around left 2nd and 3rd toe post amputation. he was admitted to inpatient for IV abx and he was discharged to shelter on 09/01/24 and he supposes to stay at shelter until 10/12/24 but insurance did not approve extended stay past 09/18/24. he was told that he has to pay $250 per day if he decides to stay at [facility]. Pt is at last day of the [facility] today. He is not comfortable with giving himself vancomycin at home. He denies any fever. Pt notices some drainage from the amputation site but no fever or any purulent drainage. toe Pt underwent lef t 2nd toe amputation about two weeks ago due to infection. Pt does have poorly controlled DM. His wound culture did grow MRSA. he was on cipro, doxy and also augmentin as well. Pt followed up with vascular surgeon in [place] and he was told that he needs left 3rd toe amputation as well due to exposed bone and potential infection. pt denies any fever, chill. Pt currently has gauze and MARCO wrap for his left foot. Pt wants 2nd opinion regarding left 3rd toe amputation. HLP Pt is on feno an d crestor and [facility] he also is seeing endo from or regarding DM liver1 pt has liver mas s and liver cirrhosis. Pt is seeing liver specialist Pt never did MRI of liver pt states that he had ultrasound done by liver specialist and everything is ok. He denies any abd pain HLP Pt has HLP Pt sa w liver specialist and he was started on feno in addition to crestor. He is on 40 mg crestor now. He was told that he needs to get above meds from [place]. He also supposes to do liver MRI but he never did it. he also will do liver ultrasound soon . Liver1 Pt has liver cir rhosis and liver nodule Pt is seeing liver specialist .Pt did not do liver MRI yet. skin Pt notices a dry and itching spots right lower ankle area for several months . DM Pt has DM Pt is on ozempic, amaryl and lantus. his A1c was 8.2/ He missed his annmarie with [employer] endo recently liver1 Pt has liver cir rhosis with liver mass Pt missed his annmarie with GI and he does have annmarie with Dr. Fink next month. Pt has gastroparesis with postprandial nausea .Pt missed his annmarie with dr cota sick Pt c/o productiv e cough with green phlegm. sinus congestion, running nose, ear pain, sore throat, x 4 days Pt denies any mildly sob .P sick Pt c/o mild sore throat, sinus congestion, green phlegm cough, mild dizziness, hoarseness since 3 days ago. Pt feels mild sob and wheezing .Pt went to urgent care yesterday and he tested negative for COVID, influenza and also strep. Pt does have albuterol inhaler at home. he also had negative chest x ray .Pt did not receive any medication from urgent care Pt denies any fever GERD1 Pt has chronic G ERD Pt had EGD done which showed gastris and gastric retention. Pt also had colonoscopy which showed tubular adenoma. Pt does not have esophageal varices. pt has liver cirrhosis with liver mass. Pt has annmarie with [facility] liver specialist in November 09. pt c/o postprandial nausea sometimes. HLP Pt has HLP Pt to lerating crestor ok Pt denies any myalgia liver cirrhosis1 Pt has liver ci rrhosis with multiple liver lesions with intermediate probability of malignancy. Pt does have chronic GERD with nausea and vomiting Pt is on omeprazole Pt also c/o periumbilical abd pain intermittently .Pt denies any bloody vomitus Pt has EGD and colonoscopy scheduled in 3 weeks. Pt denies any weight loss liver cirrhosis1 Pt has confirme d liver cirrhosis on CT scan and he also has some periportal lymphadenopathy with enhancing subcapsular lesion in liver segment . pt denies any abd pain or jaundice .pt has not made annmarie with GI yet but he does have EGD and colonoscopy schedule next month. liver cirrhosis1 Pt has accident ly finding of liver cirrhosis on CT of chest. pt states that he rarely drinks alcohol. Pt did have history of alcohol abuse many years ago. Pt denies any abd pain his LFT is ok Pt denies any bruising or bleeding. Pt is also on creon by [place] PCP but he never was told that he has pancreatitis DM Pt has DM. Pt is on ozempic and also latus and jardiance and his glucose and A1c were decent. He HLP Pt has HLP. pt h as high cholesterol and high tg. Pt states that he has been off lipitor for one year for unknown reason He told me [place] doctor took him off lipitor one year ago but he does not know why physical Pt needs annual physical Pt has been seeing doctor but he has not been seeing MD for almost one year Pt states that the [place] doctor does not take him seriously Pt has multiple medical conditions Pt has been losing weight unintentionally for the past 6 months Pt also has peripheral neuropathy and PAD. Pt denies any claudication Pt takes multiple medications. Pt has not been taking lipitor due to diarrhea. Pt has history of CAD Pt saw cardiology last year and he had negative cardiac echo and nuclear stress test per patient. He denies any chest pain. Pt wants full physical Kevin-12-2022 chest pain1 Pt c/o acute ons et of chest pain on and off for two weeks. Pt states that the chest pain is not physical exertion related. Pt feels nausea and sweaty as well during chest pain episodes, which usually last 30 mins. . Pt denies any sob. Pt has history of CAD back in . Pt denies any acute chest pain currently. Pt called his [place] MD who could not get him in until february. Pt also has HTn and DM and multiple risk factors DM Pt has DM. Pt ta kes ozempic, lantus and amaryl. His glucose is around 140s at home Pt denies any hypoglycemia. Pt denies any neuropathy CAD Pt states that h e has remote history of CAD. Pt currently does not see a field reimbursement manager. he denies any chest pain or sob. He takes lipitor and atenolol. 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 Pt uses cpap nightly and doing ok. Pt denies any snoring or any fatigue or any difficulty with breathing at night chronic pain1 Pt has chronic l ow back pain with right sciatica and right leg numbness and tingling. pt has history of right ankle fracture s/p surgery x 5 with rods and pins. Pt c/o severe right ankle pain along with low back pain with right sciatica type of pain .Pt failed neurontin. Pt states that he has been taking hydrocodone for many years. His PCP at [place] keeps cutting down his norco dose. He used to take up to 4 per day, but gradually decreased dose to currently 0.5 norco per day. Pt states that his pain is completely out of control. He works and stay on his feet al day and he can barely function due to ankle and back pain, He states that is PCP at [place] does not listen to him at all. gastric ulcer1 Pt has history o f gastric ulcer. Pt had EGD 3 years ago and he is on both protonix and omeprazole for unknown reason. Pt denies any abd pain or GERD. Pt had colonoscopy 18 months ago at [place] and he has two polyps and he supposes to repeat in 2 years. Pt does not know the type of polyp Pt denies any GI bleeding of blood loss Instructions Date Instruction Additional Infor mation No Information Assessments Type Assessment Date No Information
--- OUTSIDE RECORDS SUMMARY | 2025-02-18 15:56 | XMS_ITS | Continuity of Care Document ---
Author Organization [facility] Address [address] [place] [address] [place] [address] Phone Care Team Providers Care Systems Technologist Name Role Phone Dennis Camejo MD Unavailable [...] 1 puff - Active PRN for sob vilazodone 40 mg tablet take 1 tablet by oral route every day with food 40 MG - Active Neurontin 300 mg capsule take 1 capsule by oral route 2 times every day 300 MG - Active Jardiance 25 mg tablet take 1 tablet by oral route every day in the morning 25 MG - Active doxepin 150 mg capsule take 1 capsule by oral route every day at bedtime 150 MG - Active Cymbalta 30 mg capsule,delayed release take 1 capsule by oral route every day 30 MG - Active Creon 24,000-76,000-120,0 00 unit capsule,delayed release take 1 capsule by oral route 3 times every day with meals and 1 capsule with each snack 1 capsule - Active Valtrex 1 gram tablet take 1 tablet by oral route every day 1000 MG - Active atenolol 50 mg tablet take 1 tablet by oral route every day 50 MG - Active Seroquel 300 mg tablet take 1 tablet by oral route every bedtime 300 MG - Active doxepin 100 mg capsule take 1 capsule by oral route every day at bedtime 100 MG - Active Wellbutrin XL 300 mg 24 hr tablet, extended release take 1 tablet by oral route every morning 300 MG - Active Valium 5 mg tablet take 1 tablet by oral route 2 times every day 5 MG - Active Lantus Solostar U-100 Insulin 100 unit/mL (3 mL) subcutaneous pen inject by subcutaneous route as per insulin protocol 0.00 - Active 70 units SC daily Ozempic 1 mg/dose (2 mg/1.5 mL) subcutaneous pen injector inject (1MG) by subcutaneous route every week on the same day of each week, in the abdomen, thighs, or upper arm rotating injection sites - Active Amaryl 4 mg tablet take 1 tablet by oral route every day 4 MG - Active Procedures Procedure Date OFFICE/OUTPATIENT [...] Diagnoses Date Provider Providers Copied on Encounter [facility], [address], [place], [place], [address], [place] tel:[phone] [facility] No Information 5 Bashir Ponce [address], [place], [place], [address] , [place]. [phone] OFFICE/OUTPA TIENT VISIT, EST [facility], [address], [place], [place], [address], [place] [phone] [facility] gastropare sis1 (chief complaint) HLP (chief complaint) GastroparesisGERD w/o esophagitisMixed hyperlipidemiaTobac co use 5 Bashir Ponce [address], [place], [place], [address] , [place]. tel:[phone] PREV VISIT, EST, AGE 40-64 [facility], [address], [place], [place], [address], [place] [phone] [facility] physical (chief complaint) Encounter for general adult medical examination without abnormal findings 5 Bashir Ponce [address], [place], [place], [address] , [place]. tel:[phone] OFFICE/OUTPA TIENT VISIT, EST [facility], [address], [place], [place], [address], [place] tel:[phone] [facility] osteomyeli tis1 (chief complaint) Other acute osteomyelitis, left ankle and footAcquired absence of other left toe(s) 5 Bashir Ponce [address], [place], [place], [address] , [place]. tel:[phone] OFFICE/OUTPA TIENT VISIT, EST [facility], [address], [place], [place], [address], [place] tel:[phone] [facility] toe (chief complaint) liver1 (chief complaint) HLP (chief complaint) Mixed hyperlipidemiaHepat ic focal nodular hyperplasiaType 2 diabetes mellitus with diabetic mononeuropathyCellu litis of left toeAcquired absence of other left toe(s) 5 Bashir Ponce [address], [place], [place], [address] , [place]. tel:[phone] OFFICE/OUTPA TIENT VISIT, [facility] [place], [address], [place], [place], [address], [place] tel:[phone] [facility] HLP (chief complaint) Liver1 (chief complaint) Hepatic focal nodular hyperplasiaOther cirrhosis of liverMixed hyperlipidemia 4 Bashir Ponce [address], [place], [place], [address] , [place]. tel:[phone] OFFICE/OUTPA TIENT VISIT, [facility], [place], [address], [address], [place] tel:[phone] [facility] sick (chief complaint) liver1 (chief complaint) DM (chief complaint) skin (chief complaint) Other cirrhosis of liverHepatic focal nodular hyperplasiaAcute bronchitisType 2 diabetes mellitus with diabetic mononeuropathyAbnor mal weight lossPsoriasis 4 Bashir Collins. [address], [place], [place], [address] , [place]. tel:[phone] OFFICE/OUTPA TIENT VISIT, [facility], [place], [address], [address], [place] tel:[phone] [facility] sick (chief complaint) Acute bronchitis 4 Bashir Collins. [address], [place], [place], [address] , [place]. tel:[phone] OFFICE/OUTPA TIENT VISIT, [facility], [place], [address], [place], [place], [address], [place] tel:[phone] [facility] GERD1 (chief complaint) GERD w/o esophagitisPolyp of colonOther cirrhosis of liverType 2 diabetes mellitus with diabetic mononeuropathyGastr oparesis 3 Camejo Dennis. [address], [place], [place], [address] , [place]. tel:[phone] OFFICE/OUTPA TIENT VISIT, EST [facility], [address], [place], [place], [address], [place] tel:[phone] [facility] liver cirrhosis1 (chief complaint) HLP (chief complaint) Other cirrhosis of liverMixed hyperlipidemiaGERD w/o esophagitis 3 Camejo Dennis. [address], [place], [place], [address] , [place]. tel:[phone] OFFICE/OUTPA TIENT VISIT, [facility], [place], [address], [place], [place], [address], [place] tel:[phone] [facility] liver cirrhosis1 (chief complaint) Other cirrhosis of liverLymphadenopath yHepatic focal nodular hyperplasia 3 Camejo Dennis. [address], [place], [place], [address] , [place]. tel:[phone] OFFICE/OUTPA TIENT VISIT, [facility], [place], [address], [place], [place], [address], [place] tel:[phone] [facility] HLP (chief complaint) DM (chief complaint) liver cirrhosis1 (chief complaint) Type 2 diabetes mellitus with diabetic mononeuropathyMixed hyperlipidemiaOther cirrhosis of liverExocrine pancreatic insufficiencyPolyp of colon 3 Camejo Dennis. [address], [place], [place], [address] , [place]. tel:[phone] PREV VISIT, EST, AGE 40-64 [facility], [address], [place], [place], [address], [place] tel:[phone] [facility] physical (chief complaint) Encounter for general adult medical exam w abnormal findingsGERD w/o esophagitisPolyp of colonType 2 diabetes mellitus with diabetic mononeuropathyAbnor mal weight lossCoronary artery disease of [place] coronary artery without angina pectorisGeneralized Anxiety DisorderMixed hyperlipidemia 3 Bashir Collins. [address], [place], [place], [address] , [place]. tel:[phone] OFFICE/OUTPA TIENT VISIT, [facility], [place], [address], [place], [place], [address], [place] tel:[phone] [facility] chest pain1 (chief complaint) Chest painCAD of [place] coronary artery with angina pectorisEssential (primary) hypertension 2 Bashir Collins. [address], [place], [place], [address] , [place]. tel:[phone] [facility], [address] [place], [address], [place] tel:[phone] [facility] No Information 1 Bashir Ponce [address], [place], [place], [address] , [place]. tel:[phone] OFFICE/OUTPA TIENT VISIT, [facility], [address], [place], [place], [address], [place] tel:[phone] [facility] Sleep apnea1 (chief complaint) gastric ulcer1 (chief complaint) CAD (chief complaint) DM (chief complaint) chronic pain1 (chief complaint) Sleep apneaHyperlipidemia Chronic gastric ulcer without perforationChronic pain syndromeAnxietyType 2 diabetes mellitus without complicationsHerpes simplex infection 1 Bashir Ponce [address], [place], [place], [address] , [place]. tel:[phone] Family History Family Member Type Diagnosis Age At Onset Brother Problem Obesity Mother Problem unknown Father Problem of 65 unknown Payers Payer name Insurance type Covered alliance party ID Authoriza tion(s) [id number] Social History Type Description Quantity Date Captured [...] ordered Referral Referred To: Rodrigo Bolanos [address] [place], [place], [id number] Ordered: Referrals: Allopathic & Osteopathic Physicians : Internal Medicine : Gastroenterology. Rodrigo Bolanos. Evaluate and treat ordered Referral Ordered: MRI ABDOMEN W/O & W/DYE ordered Referral Ordered: Joao Doll -Allopathic & Osteopathic Physicians : Internal Medicine : Gastroenterology (related to Other cirrhosis of liver) ordered Referral Referred To: Joao Doll [address], [place], [phone] Ordered: Referrals: Allopathic & Osteopathic Physicians : [...] is not sure. 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 He has DM and anxiety and depression and he is seeing PCP and specialists at [facility] for above. he has been on vancomycin daily for osteomyelitis left foot for the [facility] and he is released to home with oral doxycycline and he will attend wound care clinic at [facility] next week with hyperbaric chamber. Pt is very confused about his overwhelming medical conditions. He states that his left foot wound is stable without drainage now Pt denies any fever osteomyelitis1 pt had left 2nd and 3rd toe amputation recently by [facility] vascular surgeon 2-3 months ago and he developed osteomyelitis around left 2nd and 3rd toe post amputation. he was admitted to inpatient for IV abx and he was discharged to [facility] on 09/01/24 and he supposes to stay at senior care until 10/12/24 but insurance did not approve extended stay past 09/18/24. he was told that he has to pay $250 per day if he decides to stay at [facility]. Pt is at last day of the [facility] today. He is not comfortable with giving himself vancomycin at home. He denies any fever. Pt notices some drainage from the amputation site but no fever or any purulent drainage. liver1 pt has liver mas s and liver cirrhosis. Pt is seeing liver specialist Pt never did MRI of liver pt states that he had ultrasound done by liver specialist and everything is ok. He denies any abd pain HLP Pt is on feno an d crestor [facility] he also is seeing endo from [facility] regarding DM toe Pt underwent lef t 2nd toe amputation about two weeks ago due to infection. Pt does have poorly controlled DM. His wound culture did grow MRSA. he was on cipro, doxy and also augmentin as well. Pt followed up with vascular surgeon in [facility] and he was told that he needs left 3rd toe amputation as well due to exposed bone and potential infection. pt denies any fever, chill. Pt currently has gauze and MARCO wrap for his left foot. Pt wants 2nd opinion regarding left 3rd toe amputation. HLP Pt has HLP Pt sa w [...] .Pt did not do liver MRI yet. sick Pt c/o productiv e cough with green phlegm. sinus congestion, running nose, ear pain, sore throat, x 4 days Pt denies any mildly sob .P liver1 Pt has liver cir rhosis with liver mass Pt missed his annmarie with GI and he does have annmarie with Dr. Fink next month. Pt has gastroparesis with postprandial nausea .Pt missed his annmarie with dr cota DM Pt has DM Pt is on ozempic, amaryl and lantus. his A1c was 8.2/ He missed his annmarie with [facility] endo recently skin Pt notices a dry and itching spots right lower ankle area for several months . sick Pt c/o mild sore throat, sinus [...] with liver mass. Pt has annmarie with [facility] liver specialist in November 09. pt c/o postprandial nausea sometimes. liver cirrhosis1 Pt has liver ci rrhosis with multiple liver lesions with intermediate probability of malignancy. Pt does have chronic GERD with nausea and vomiting Pt is on omeprazole Pt also c/o periumbilical abd pain intermittently .Pt denies any bloody vomitus Pt has EGD and colonoscopy scheduled in 3 weeks. Pt denies any weight loss HLP Pt has HLP Pt to lerating crestor ok Pt denies any myalgia liver cirrhosis1 Pt has confirme d liver cirrhosis on CT scan and he also has some periportal lymphadenopathy with enhancing subcapsular lesion in liver segment . pt denies any abd pain or jaundice .pt has not made annmarie with GI yet but he does have EGD and colonoscopy schedule next month. HLP Pt has HLP. pt h as high cholesterol and high tg. Pt states that he has been off lipitor for one year for unknown reason He told me [facility] doctor took him off lipitor one year ago but he does not know why DM Pt has DM. Pt is on ozempic and also latus and jardiance and his glucose and A1c were decent. He liver cirrhosis1 Pt has accident ly finding of liver cirrhosis on CT of chest. pt states that he rarely drinks alcohol. Pt did have history of alcohol abuse many years ago. Pt denies any abd pain his LFT is ok Pt denies any bruising or bleeding. Pt is also on creon by [facility] PCP but he never was told that he has pancreatitis physical Pt needs annual physical Pt has been seeing doctor but he has not been seeing MD for almost one year Pt states that the [facility] doctor does not take him seriously Pt [...] acute chest pain currently. Pt called his [facility] MD who could not get him in until february. Pt also has HTn and DM and multiple risk factors gastric ulcer1 Pt has history o f gastric ulcer. Pt had EGD 3 years ago and he is on both protonix and omeprazole for unknown reason. Pt denies any abd pain or GERD. Pt had colonoscopy 18 months ago at [facility] and he has two polyps and he supposes to repeat in 2 years. Pt does not know the type of polyp Pt denies any GI bleeding of blood loss chronic pain1 Pt has chronic l ow [...] hydrocodone for many years. His PCP at [facility] keeps cutting down his norco dose. He used to take up to 4 per day, but gradually decreased dose to currently 0.5 norco per day. Pt states that his pain is completely out of control. He works and stay on his feet al day and he can barely function due to ankle and back pain, He states that is PCP at [facility] does not listen to him at all. Sleep apnea1 Pt has sleep densitometer reader ea. Pt uses cpap nightly and doing ok. Pt denies any snoring or any fatigue or any difficulty with breathing at night CAD Pt states that tammy anders has remote history of CAD. Pt currently does not see a hash slinger. he denies any chest pain or sob. He takes lipitor and atenolol. He denies any myalgia DM Pt has DM. Pt ta kes ozempic, lantus and amaryl. His glucose is around 140s at home Pt denies any hypoglycemia. Pt denies any neuropathy Instructions Date Instruction Additional Infor mation No Information Assessments Type Assessment Date No Information
[2025-03-26] VITALS (23 sets, daily range): BP systolic 117–157; BP diastolic 64–80; PULSE 77–102; RESP 12–24; TEMP 36.9–38.3; O2SAT 93–100; BMI 27.8
--- NOTE | ~2025-03-26 | XR_ITS ---
EXAMINATION: XR chest 1V 03/26/2025 17:46 INDICATION: Fall. Evaluate right clavicle fracture TECHNIQUE:A single supine frontal image of the chest was obtained. COMPARISON: 07/27/2023 FINDINGS: Cardiomediastinal silhouette is enlarged, unchanged. Small left-sided pleural effusion. Small patchy opacities in the left lower lung. No pneumothorax. IMPRESSION: 1: Small patchy opacities in the left lower lung which represents atelectasis and/or airspace disease. Recommend follow-up to resolution. 2. Small left-sided pleural effusion. Reviewed, dictated and finalized at location Q.
--- NOTE | ~2025-03-26 | MR_ITS ---
EXAMINATION: MR foot RT wo/w con DATE: 03/27/2025 16:15 INDICATION: Cellulitis TECHNIQUE: Magnetic resonance imaging (MRI) of the right foot was performed without and with 18 mL Multihance intravenous contrast. Sequences included axial, sagittal and coronal T1-weighted FSE and fluid sensitive FSE STIR, axial T1-weighted FS FSE in axial, sagittal and coronal T1-weighted FS FSE. COMPARISON: Right foot and ankle radiographs dated 03/26/2025 FINDINGS: There is an old healed fracture deformity at the distal diaphysis of the fifth metatarsal which has healed with medial angulation. There is a small osseous excrescence likely resulting from the fracture which projects plantar/laterally. There is suggestion of an overlying skin erosion with decreased enhancement in the intervening subcutaneous tissues. No evident abscess. There is nonspecific prominent increased fluid signal and enhancement of the marrow in the fifth metatarsal beginning at the fracture and extending distally to the neck of the fifth metatarsal. No evident cortical erosion either on the current MRI or on the plain radiographs and no loss of T1 marrow fat signal on MRI to more specif ically suggest osteomyelitis. No evident abscess. Marrow signal is normal throughout the remainder of the bones of the foot. There is magnetic field artifact associated with metallic orthopedic instrumentation at the distal tibia and fibula. There is diffuse increased fluid signal throughout the intrinsic musculature of the foot. There is some fatty atrophy of the abductor digiti minimi muscle which is likely related to the chronic injury to the fifth metatarsal tendinopathy without definitive tear of the peroneus longus and brevis tendons distal to the lateral malleolus. Visualized amount fluid in the joint spaces. No joint effusions or other abnormal fluid collections. IMPRESSION: 1. Ulceration at the plantar/lateral aspect of the forefoot immediately deep to a small osseous excrescence at the distal diaphysis of the fifth metatarsal resulting from an old healed fracture deformity, likely representing a pressure erosion resulting from the osseous excrescence. There is marrow edema and enhancement in the region of the fracture deformity and adjacent ulceration without evident cortical erosion on either MRI or prior radiographs and without evident geographic loss of T1 marrow fat signal to more specifically suggest osteomyelitis. Differential would include early osteomyelitis, reactive edema related to adjacent infection or stress reaction resulting from the malunion. Reviewed, dictated and finalized at location A. IMPRESSION: 1. Ulceration at the plantar/lateral aspect of the forefoot immediately deep to a small osseous excrescence at the distal diaphysis of the fifth metatarsal re sulting from an old healed fracture deformity, likely representing a pressure e rosion resulting from the osseous excrescence. There is marrow edema and enhanc ement in the region of the fracture deformity and adjacent ulceration without e vident cortical erosion on either MRI or prior radiographs and without evident geographic loss of T1 marrow fat signal to more specifically suggest osteomyeli tis. Differential would include early osteomyelitis, reactive edema related to adjacent infection or stress reaction resulting from the malunion.
--- NOTE | ~2025-03-26 | XR_ITS ---
EXAMINATION: XR shoulder RT min 2V DATE: 03/26/2025 17:46 INDICATION: Fall TECHNIQUE: 3 images of the right shoulder were obtained COMPARISON: None FINDINGS: [Mild degenerative change in the right acromioclavicular joint. [ No radiographic evidence for an acute fracture or dislocation.] [ No radiopaque foreign body.] [ No sclerotic or destructive bone lesions.] There are a few less than 5 mm radiopaque densities in the subdeltoid bursa which may represent calcium from calcific tendinitis. IMPRESSION: 1. [ No acute bony abnormality identified.] 2. Mild degenerative change in the right acromioclavicular joint. 3.There are a few less than 5 mm radiopaque densities in the subdeltoid bursa which may represent calcium from calcific tendinitis If symptoms persist or worsen consider a short-term follow-up study or MRI imaging for further assessment. Reviewed, dictated and finalized at location Q. IMPRESSION: 1. [ No acute bony abnormality identified.] 2. Mild degenerative change in the right acromioclavicular joint. 3.There are a few less than 5 mm radiopaque densities in the subdeltoid bursa w hich may represent calcium from calcific tendinitis If symptoms persist or worsen consider a short-term follow-up study or MRI imag ing for further assessment.
--- NOTE | ~2025-03-26 | XR_ITS ---
EXAMINATION: XR ankle RT 2V, 03/26/2025 17:25 CDT HISTORY: cellulitis; hx osteo on L COMPARISON: No comparisons available. Findings: Postsurgical changes with fixation of the distal tibia and fibula, the hardware is intact, no acute fracture is identified. There is no osseous destruction. No significant degenerative changes. Soft tissue swelling noted. Impression: No evidence of osteomyelitis Reviewed, dictated and finalized at location A. Impression: No evidence of osteomyelitis
--- NOTE | ~2025-03-26 | XR_ITS ---
EXAMINATION: XR foot RT 2V DATE: 03/26/2025 17:46 INDICATION: Cellulitis. History of osteomyelitis TECHNIQUE: 2 images of the right foot were obtained. COMPARISON: None. FINDINGS: Bones appear osteopenic. Moderate degenerative change about the first metatarsophalangeal joint. Sideplates with orthopedic screws transfix healed fractures of the distal tibia and fibula. Soft tissue swelling about the right foot and right ankle. Vascular calcifications are noted. Lucencies identified in the distal third of the fifth metatarsal and base of the proximal phalanx of the fifth toe. Differential includes osteopenia, however, osteomyelitis is possible in the appropriate clinical setting. There is adjacent soft tissue swelling. If symptoms persist or worsen, consider an MRI of the right foot with and without contrast for further assessment. IMPRESSION: 1. Lucencies identified in the distal third of the fifth metatarsal and base of the proximal phalanx of the fifth toe. Differential includes osteopenia, however, osteomyelitis is possible in the appropriate clinical setting. There is adjacent soft tissue swelling. If symptoms persist or worsen, consider an MRI of the right foot with and without contrast for further assessment. Reviewed, dictated and finalized at location Q. IMPRESSION: 1. Lucencies identified in the distal third of the fifth metatarsal and base of the proximal phalanx of the fifth toe. Differential includes osteopenia, howev er, osteomyelitis is possible in the appropriate clinical setting. There is adj acent soft tissue swelling. If symptoms persist or worsen, consider an MRI of t he right foot with and without contrast for further assessment.
--- OUTSIDE RECORDS SUMMARY | 2025-03-26 15:25 | XMS_ITS | Clinical Summary ---
Author Organization [facility] Kuli Kuli Address [address] [place] [address] Care Team Providers Care Law Firm Partner Name Role Phone Dennis Camejo MD Primary Care Provider [phone] Source Comments [facility],non-owned Affiliates and Associated Physician Practices is amultiple site organization consisting of ambulatory clinics and hospital sitesin [place], [place], [place] and [place]. This disclosure is being madepursuant to the Care Everywhere program and may not contain all information available regarding this patient. Last updated 18.[facility] Allergies No known active allergies Medications * Be aware that medications may not be up to date on this document. Alwaysverify current medications with the patient. 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 Gender Identity Not on file Sexual Orientation Not on file Plan of Treatment Health Maintenance Due Date Last Done Comments COLOGUARD (AGES 45-75) - COLON CA SCREENING 1964 COLON MONITORING 1964 COLONOSCOPY - COLON CA SCREENING 1964 CT COLONOGRAPHY - COLON CA SCREENING 1964 Colorectal Cancer Screening 1964 FIT - COLON CA SCREENING 1964 FLEX SIG - COLON CA SCREENING 1964 LIPID TESTING 1964 HIV SCREENING 02/17/1979 HEPATITIS C SCREENING 02/13/1982 DTAP/TDAP/TD VACCINES (1 - Tdap) 02/17/1983 PNEUMOCOCCAL VACCINE 50+ (1 of 1 - PCV) 02/17/2014 ZOSTER VACCINE (1 of 2) 02/17/2014 DEPRESSION SCREENING 07/19/2024 MEDICARE AWV CALENDAR YEAR 2024 COVID-19 VACCINE ( season) 2025 10/22/2020, 10/01/2020 INFLUENZA VACCINE (#1) 2025 7, 05/25/2016, 05/03/2014, Additional history exists Respiratory Syncytial Virus (RSV) Vaccine Pt: or over 60 yrs (1 - 1-dose 75+ series) 02/17/2039 HEPATITIS B VACCINE Aged Out No longe r eligible based on patient's age to complete this topic HIB VACCINE Aged Out No longer eligi ble based on patient's age to complete this topic HPV VACCINE Aged Out No longer eligi ble based on patient's age to complete this topic MENINGOCOCCAL (Group B) VACCINE SHARED DECISION-MAKING Aged Out No longer eligible based on patient's age to complete this topic MENINGOCOCCAL GROUPS A/C/Y/W VACCINE Aged Out No longer eligible based on patient's age to complete this topic Insurance SELF PAY NO INSURANCE Member Subscriber Plan / Payer (Ef fective for All Dates) Name:Lupillo Jimenez Member ID:Not on file Relation to Subscriber:Not on file Name:LUPILLO JIMENEZ Subscriber ID:Not on file Address: [address] [place] [address] Payer ID:Not on file Group ID:Not on file Type:Self Pay Address: [facility] MANAGED MEDICARE ADV SELF PAY NO INSURANCE Member Subscriber Plan / Payer (Ef fective for All Dates) Name:Lupillo Jimenez Member ID:Not on file Relation to Subscriber:Not on file Name:LUPILLO JIMENEZ Subscriber ID:Not on file Address: [address] [place] [address] Payer ID:Not on file Group ID:Not on file Type:Self Pay Address: [facility] MEDICARE ADV Care Teams Law Firm Partner Relationship Specialty Start Date End Date Dennis Camejo MD [address] [facility] [address] [place] [id number] PCP - General Family Medicine 04/09/23
--- OUTSIDE RECORDS SUMMARY | 2025-03-26 15:25 | XMS_ITS | Clinical Summary ---
Author Organization [facility] Address [facility] [place] [address] Care Team Providers [employer] Name Role Phone Dennis Camejo MD Primary Care Provider [phone] Allergies Active Allergy Reactions Criticality Noted Date Comments Sulfamethoxazole-Trimethoprim Nausea Only 08/25 Meloxicam Unknown 02/25/2022 Metformin Unknown 02/25/2022 Medications gabapentin (NEURONTIN) 300 MG capsule Take 1 capsule (300 mg total) by mouth nightly at bedtime. Active buPROPion XL (WELLBUTRIN XL) 300 MG 24 hr tablet Take 1 tablet (300 mg total) by mouth daily. Active Vitamin D3, cholecalciferol , 2000 UNIT Tab tablet Take 1 tablet (2,000 Units total) by mouth daily. Active Pancrelipase, Fjw-Cesj-Bvmi, (CREON OR) Take 24,000 Units by mouth 3 (three) times a day. Active Doxepin HCl 75 MG Cap Take 2 capsules by mouth nightly at bedtime. at bedtime. Active empagliflozin (JARDIANCE) 25 MG tablet Take 1 tablet (25 mg total) by mouth daily. Active glimepiride (AMARYL) 4 MG tablet Take 1 tablet (4 mg total) by mouth every morning before breakfast. Active insulin glargine (LANTUS) 100 UNIT/ML injection (VIAL) Inject 40 Units into the skin every morning. Active sildenafil (VIAGRA) 100 MG tablet Take 1 tablet (100 mg total) by mouth daily as needed for Erectile Dysfunction. Active DULoxetine (CYMBALTA) 30 MG capsule Take 3 capsules (90 mg total) by mouth daily. Active QUEtiapine (SEROQUEL) 200 MG tablet Take 2.5 tablets (500 mg total) by mouth nightly at bedtime. Active diphenhydrAMINE (BENADRYL) 50 MG tablet Take 0.5 tablets (25 mg total) by mouth nightly as needed for Sleep. Active multi vitamin/mineral s (THERA-M ENHANCED) tablet Take 1 tablet by mouth daily. Active semaglutide (OZEMPIC, 1 MG/DOSE,) 2 MG/1.5ML injection (PEN) Inject 2 mg into the skin every 7 days. Active diazePAM (VALIUM) 5 MG tablet Take 1 tablet (5 mg total) by mouth every 12 (twelve) hours as needed for Anxiety. Active dupilumab (DUPIXENT) 300 MG/2ML injection (PEN) Inject 2 mLs (300 mg total) into the skin every 14 (fourteen) days. Active loperamide (IMODIUM) 2 MG capsule Take 1 capsule (2 mg total) by mouth 3 (three) times daily. Active ondansetron (ZOFRAN) 8 MG tablet Take 0.5 tablets (4 mg total) by mouth every 8 (eight) hours as needed for Nausea. Active pantoprazole EC (PROTONIX) 40 MG tablet Take 1 tablet (40 mg total) by mouth daily. Active Testosterone 1.62 % Gel Place 40.5 mg onto the skin daily. Active triamcinolone (KENALOG) 0.1 % ointment Apply topically 2 (two) times daily. Active fenofibrate (TRICOR) 54 MG tablet Take 1 tablet (54 mg total) by mouth daily with breakfast. Active rosuvastatin (CRESTOR) 40 MG tablet Take 1 tablet (40 mg total) by mouth nightly at bedtime. Active oxyCODONE immediate release (ROXICODONE) 5 MG immediate release tabletIndicatio ns:Acute Pain < 3 Day Supply Take 1 tablet (5 mg total) by mouth every 6 (six) hours as needed for Pain. Indications: Acute Pain < 3 Day Supply 5 tablet 5 Active naloxone (NARCAN) 4 MG/0.1ML nasal spray 1 spray by Nasal route as needed for Opioid reversal. may repeat every 2 to 3 minutes in alternating nostrils until medical assistance becomes available 1 each 5 09/01/19 26 Active metoclopramide (REGLAN) 10 MG tablet Take 1 tablet (10 mg total) by mouth every 6 (six) hours as needed (at bedtime). Active clindamycin (CLEOCIN) 300 MG capsule Take 1 capsule (300 mg total) by mouth 3 (three) times daily for 10 days. 30 capsule 04/01/20 25 Active Active Problems Problem Noted Date Diagnosed Date Osteomyelitis ([facility]) 08/20/2024 Encounters Date Type Department Care Team Description 03/22/2025 6:07 PM CDT - 03/22/2025 8:05 PM CDT Emergency [facility] [place] [address] Carly Leigh NP Foot Pain Discharge Disposition: Home or Self Care (Routine Discharge) 03/22/2025 Travel 03/22/2025 Telephone [facility] Multispecialty Care - [facility] [address] [facility], [address] [place] [phone] Colleen Ross NP Concerns; Appointment Request from Last 3 Months Immunizations Immunization Administration Dates Next Due Tdap (Boostrix) 04/06/2023 Family History Medical History Relation Comments Open Heart Father Relation Status Comments Brother Father Mother Social History Tobacco Use Types Packs/Day Years Used Date Smoking Tobacco: Every Day Cigarettes Smokeless Tobacco: Never Tobacco Cessation:Ready to Q uit: No; Counseling Given: Yes Alcohol Use Standard Drinks/Week Comments Yes 0 (1 standard drink = 0.6 oz pur e alcohol) <1/week [facility] Utilities Answer Date Recorded In the past 12 months has [employer], [employer], oil, or water [employer] threatened to shut off services in your home? No 08/28/2024 Humiliation, Afraid, Rape, and Kick questionnair e Answer Date Recorded Within the last year, have y ou been afraid of your partner or ex-partner? No 08/28/2024 Within the last year, have y ou been humiliated or emotionally abused in other ways by your partner or ex-partner? No Within the last year, have y ou been kicked, hit, slapped, or otherwise physically hurt by your partner or ex-partner? No 08/28/2024 Within the last year, have y ou been raped or forced to have any kind of sexual activity by your partner or ex-partner? No 08/28/2024 Overall Financial Resource Strain (CARDIA) Answe r Date Recorded How hard is it for you to pa y for the very basics like food, housing, medical care, and heating? Not very hard 08/28/2024 PHQ-2 Answer Date Recorded Patient Health Questionnaire-2 Score 0 11/22/2024 Hunger Vital Sign Answer Date Recorded Within the past 12 months, y ou worried that your food would run out before you got the money to buy more. Never true 08/28/19 25 Within the past 12 months, t he food you bought just didn't last and you didn't have money to get more. Never true 08/28/2024 PRAPARE - Transportation Answer Date Re corded In the past 12 months, has l ack of transportation kept you from medical appointments or from getting medications? No 08/19 In the past 12 months, has l ack of transportation kept you from meetings, work, or from getting things needed for daily living? No 08/28/2024 Housing Stability Vital Sign Answer Kareem e Recorded In the last 12 months, was t here a time when you were not able to pay the mortgage or rent on time? No 08/28/2024 In the past 12 months, how m any times have you moved where you were living? 0 08/28/2024 At any time in the past 12 m [facility], were you homeless or living in a detention (including now)? 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 Male 11:24 PM CDT Gender Identity Male 10/18/2024 12:20 PM CDT Sexual Orientation Not on file Last Filed Vital Signs Vital Sign Reading Time Taken Comments Blood Pressure 159/71 03/22/2025 5:22 PM CDT Pulse 106 03/22/2025 5:22 PM CDT Temperature 36.7 C (98 F) 03/22/2025 5:22 PM CDT Respiratory Rate 18 03/22/2025 5:22 PM CDT Oxygen Saturation 97% 03/22/2025 5:22 PM CDT Inhaled Oxygen Concentration - - Weight 95.3 kg (210 lb 1.6 oz) 03/22/2025 5:22 P M CDT Height 177.8 cm (5' 10) 03/22/2025 5:22 PM CDT Body Mass Index 30.15 03/22/2025 5:22 PM CDT Plan of Treatment Health Maintenance Due Date Last Done Comments Colorectal Cancer Screening Colonoscopy (10 Years) 1964 Kidney Health Evaluation 1964 Hemoglobin A1C 1964 Lipid Panel 1964 Annual Physical 02/17/1967 Diabetes: Retinopathy Eye Exam 02/17/1982 Hepatitis C 02/17/1982 Pneumococcal Vaccine: 50+ Years (1 of 2 - PCV) 02/17/1983 Zoster Vaccines (1 of 2) 02/17/2014 RSV Immunization or 60+ Years (1 - Risk 60-74 years 1-dose series) 2024 COVID-19 Vaccine (3 - 2024-2 6 season) 2025 10/22/2020, 10/01/2020 DTaP, Tdap and Td Vaccines ( 3 - Td or Tdap) 04/06/2033 04/06/2023, 06/05/2009 PHQ-2 ([place]) Completed 11/22/2024 Meningococcal B Vaccine Aged Out No l onger eligible based on patient's age to complete this topic Meningococcal Vaccine Aged Out No beverley selin eligible based on patient's age to complete this topic RSV Immunizations Under 20 Months Aged Out No longer eligible b ased on patient's age to complete this topic Goals Goal Patient Goal Type Associated Problems Recent Progress Patient-Stated? 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 Procedure Name Priority Date/Time Associated Diagnosis Comments LACTIC ACID W REFLEX (SEPSIS) STAT 03/22/2025 6:15 PM CDT COMPREHENSIVE METABOLIC PANEL STAT 03/22/2025 6:15 PM CDT CBC W/DIFF AUTOMATED STAT 03/22/2025 6:15 PM CDT XR FOOT LT 3V STAT 03/22/2025 5:59 PM CDT XR FOOT RT 3V STAT 03/22/2025 5:58 PM CDT from Last 3 Months Results * LACTIC ACID W REFLEX (SEPSIS) (03/22/2025 6:15 PM CDT) LACTIC ACID VENOUS 1.6 0.4 - 2.0 MMOL/L 03/22/2025 7:07 PM CDT [facility] 03/22/2025 6:15 PM CDT [facility] Final Result [facility] [address] [place] [address], * (ABNORMAL) COMPREHENSIVE METABOLIC PANEL (03/22/2025 6:15 PM CDT) GLUCOSE 199(H) 70 - 99 MG/DL 03/22/2025 6:52 PM CDT [facility] BUN 10 7 - 18 MG/DL 03/22/2025 6:52 PM CDT [facility] CREATININE S/P/B 0.95 0.7 - 1.3 MG/DL 03/22/2025 6:52 PM CDT [facility] SODIUM S/P/B 137 136 - 145 MMOL/L 03/22/2025 6:52 PM CDT [facility] POTASSIUM S/P/B 4.0 3.5 - 5.1 MMOL/L 03/22/2025 6:52 PM CDT [facility] CHLORIDE S/P/B 106 97 - 115 MMOL/L 03/22/2025 6:52 PM CDT [facility] CO2 27.0 21 - 32 MMOL/L 03/22/2025 6:52 PM CDT [facility] CALCIUM S/P/B 9.2 8.5 - 10.1 MG/DL 03/22/2025 6:52 PM CDT [facility] BILIRUBIN TOTAL S/P/B 0.4 0.2 - 1.2 MG/DL 03/22/2025 6:52 PM CDT [facility] Comment: THIS ASSAY IS NOT RECOMMENDED FOR PATIENTS UNDERGOING TREATMENT WITH ELTROMBOPAG DUE TO THE POTENTIAL FOR FALSELY ELEVATED RESULTS. TOTAL PROTEIN S/P/B 8.3(H) 6.4 - 8.2 G/DL 03/22/2025 6:52 PM CDT [facility] ALBUMIN S/P/B 3.6 3.4 - 5.0 G/DL 03/22/2025 6:52 PM CDT [facility] AST 24 15 - 37 U/L 03/22/2025 6:52 PM CDT [facility] ALT 35 16 - 60 U/L 03/22/2025 6:52 PM T [facility] ALKALINE PHOSPHATASE S/P/B 142(H) 50 - 136 U/L 03/22/2025 6:52 PM CDT [facility] ANION GAP 4.0 2 - 10 MMOL/L 03/22/2025 6:52 PM CDT [facility] BUN CREATININE RATIO 10.5 6 - 26 03/22/2025 6:52 PM T [facility] A/G RATIO 0.8(L) 1.0 - 2.0 RATIO 03/22/2025 6:52 PM T [facility] GFR ESTIMATE >90 >90 ML/MIN/1.7 3 M2 03/22/2025 6:52 PM CDT [facility] Comment: NOTE: eGFR is not calculated for patients <18 years of age or gender unknown. This is an estimated GFR calculation using the new CKD EPI creatinine equation without race and so does not require a correction factor for race. This estimated GFR should not be used for calculating drug doses. 03/22/2025 6:15 PM CDT [facility] Final Result [facility] [address] [place] [address], [place] [phone] * (ABNORMAL) CBC W/DIFF AUTOMATED (03/22/2025 6:15 PM CDT) WBC 10.78 4.5 - 11.0 x10'3/uL 03/22/2025 6:26 PM CDT [facility] RBC 4.84 4.70 - 6.10 x10'6/uL 03/22/2025 6:26 PM CDT [facility] HGB 15.0 14.0 - 18.0 G/DL 03/22/2025 6:26 PM CDT [facility] HCT 44.7 43.0 - 54.0 % 03/22/2025 6:26 PM CDT [facility] MCV 92.4 80.0 - 94.0 FL 03/22/2025 6:26 PM CDT [facility] MCH 31.0 27.0 - 31.0 PG 03/22/2025 6:26 PM CDT [facility] MCHC 33.6 32.0 - 36.0 G/DL 03/22/2025 6:26 PM CDT [facility] RDW 12.8 11.5 - 14.5 % 03/22/2025 6:26 PM CDT [facility] PLT 195 130 - 400 x10'3/uL 03/22/2025 6:26 PM CDT [facility] MPV 9.5 9.3 - 12.2 FL 03/22/2025 6:26 PM CDT [facility] DIFFERENTIAL TYPE AUTOMATED DIFFERENTIAL 03/22/2025 6:26 PM CDT [facility] NEUTROPHILS % 63.8 % 03/22/2025 6:26 PM CDT [facility] LYMPHOCYTES % 21.2 % 03/22/2025 6:26 PM CDT [facility] MONOCYTES % 11.0 % 03/22/2025 6:26 PM CDT [facility] EOSINOPHILS 2.7 % 03/22/2025 6:26 PM CDT [facility] BASOPHILS 0.8 % 03/22/2025 6:26 PM CDT [facility] IMMATURE GRANS % 0.5 % 03/22/20 6:26 PM CDT [facility] ABS. NEUTROPHILS 6.88 1.80 - 7.70 x10'3/uL 03/22/2025 6:26 PM CDT [facility] ABS. LYMPHOCYTES 2.28 1.00 - 4.80 x10'3/uL 03/22/2025 6:26 PM CDT [facility] ABS. MONOCYTES 1.19(H) 0.30 - 0.82 x10'3/uL 03/22/2025 6:26 PM CDT [facility] ABS. EOSINOPHILS 0.29 0.04 - 0.54 x10'3/uL 03/22/2025 6:26 PM CDT [facility] ABS. BASOPHILS 0.09(H) 0.01 - 0.08 x10'3/uL 03/22/2025 6:26 PM CDT [facility] ABS. IMMATURE GRANULOCYTES 0.05 0.00 - 0.49 x10'3/uL 03/22/2025 6:26 PM CDT [facility] 03/22/2025 6:15 PM CDT [facility] Final Result [facility] [address] [place] [address], [place] [phone] * XR FOOT LT 3V (03/22/2025 5:59 PM CDT) Anatomical Region Laterality Modality Foot Radiographic Edwina ging 03/22/2025 6:41 PM CDT Impressions 03/22/2025 6:45 PM CDT IMPRESSION: 1. No radiographic evidence of osteomyelitis. 2. Indication at the second and third metatarsals. 3. Valgus subluxation at the first MTP joint, new since prior exam. Referred By: Interpreted By: Juan Ulrich MD, 03/22/2025 6:41 PM Narrative 03/22/2025 6:45 PM CDT [address] [address] INDICATION: Foot pain. COMPARISON: Left foot radiographs 08/20/2024 TECHNIQUE: * 3 views of the left foot. 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 No convincing radiographic evidence for osseous erosion. Marked lateral subluxation (valgus) of the first MTP joint, new since prior exam no acute fractures. Atherosclerosis. No significant soft tissue abnormality. Procedure Note Juan Ulrich DO - 03/22/[address] [address] INDICATION: Foot pain. COMPARISON: Left foot radiographs 08/20/2024 TECHNIQUE: * 3 views of the left foot. 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 Noconvincing radiographic evidence for osseous erosion. Marked lateralsubluxation (valgus) of the first MTP joint, new since prior exam no acutefractures. Atherosclerosis. No significant soft tissue abnormality. IMPRESSION: 1. No radiographic evidence of osteomyelitis. 2. Indication at the second and third metatarsals. 3. Valgus subluxation at the first MTP joint, new since prior exam. Referred By: Interpreted By: Juan Ulrich MD, 03/22/2025 6:41 PM [facility] Final Result * XR FOOT RT 3V (03/22/2025 5:58 PM CDT) Anatomical Region Laterality Modality Foot Radiographic Edwina ging 03/22/2025 6:46 PM CDT Impressions 03/22/2025 6:48 PM CDT IMPRESSION: 1. Soft tissue swelling in the lateral forefoot. 2. No radiographic evidence of osteomyelitis. Referred By: Interpreted By: Juan Ulrich MD, 03/22/2025 6:46 PM Narrative 03/22/2025 6:[address] PM [address] [address] INDICATION: Foot pain. COMPARISON: Radiographs 08/23/2010 TECHNIQUE: * 3 radiographs of the right foot. FINDINGS: Partially visualized. Tibia and fibula fixation hardware. Remote healed fracture of the distal metatarsal. No acute fractures. No osseous erosions. Soft tissue swelling of the lateral forefoot. Procedure Note Juan Ulrich DO - 03/22/[address] [place], [place] [address] INDICATION: Foot pain. COMPARISON: Radiographs 08/23/2010 TECHNIQUE: * 3 radiographs of the right foot. FINDINGS: Partially visualized. Tibia and fibula fixation hardware. Remote healedfracture of the distal metatarsal. No acute fractures. No osseouserosions. Soft tissue swelling of the lateral forefoot. IMPRESSION: 1. Soft tissue swelling in the lateral forefoot. 2. No radiographic evidence of osteomyelitis. 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
--- NOTE | 2025-03-26 17:15 | ECG_ITS ---
Test Date: 2025-03-26 18:10:29 Measurements Intervals Shedd Rate: 98 P: 20 PA: 132 QRS: 20 QRSD: 98 T: 47 QT: 324 QTc: 415 Interpretive Statements SINUS RHYTHM WITHIN NORMAL LIMITS No previous ECG available for comparison Electronically Signed On 03-28-2025 15:23:48 CDT by Samson Rubin M.D.
--- NOTE | 2025-03-26 17:19 | ED.FALL ---
HPI - Fall General Chief Complaint: Fall Stated Complaint: multiple falls, RIGHT shoulder injury Time Seen by Provider: 03/26/25 16:34 Source: patient and family (son) Mode of arrival: ambulatory Limitations: no limitations History of Present Illness HPI Narrative: Patient presents after he fell and struck his right anterior shoulder which is now having pain. At baseline he is on 10-325 Percocet but did not take it today. Also concern for right foot pain and redness. Was see at [facility] and diagnosed with infection, but on an antibiotic (unknown which) TID which he has been taking. 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 Previous history of 2 toe amputations (in 3 surgeries total) through [facility], one in June 2024 and the other Jul 2024. Supposed to be on CPAP. Did not strike his head or lose consciousness. Uses a cane/walker at baseline but sometimes has dizzy spells and notes he sometimes spins around too fast when using his walking assist device. Denies paresthesias in RUE. History DM. Concerned for the redness and callouses in right foot. Related Data Home Medications ?Medication ?Instructions ?Recorded ?Confirmed ?Last Taken ?Type bupropion HCl 200 mg tablet,12 hr 300 mg PO DAILY 03/28/20 03/26/25 03/25/25 History sustained-release diazepam 5 mg tablet 5 mg PO BID PRN Anxiety 03/28/20 03/26/25 03/26/25 History doxepin 100 mg capsule 150 mg PO HS 03/28/20 03/26/25 03/25/25 History insulin glargine 100 unit/mL 100 unit subcut QPM 03/28/20 03/26/25 03/25/25 History subcutaneous solution (Lantus U-100 Insulin) omeprazole 20 mg capsule,delayed 40 mg PO DAILY 03/28/20 03/26/25 03/26/25 History release semaglutide 1 mg/dose (2 mg/1.5 1 mg subcut WEEKLY 03/28/20 03/26/25 Unknown History mL) subcutaneous pen injector (Ozempic) atorvastatin 40 mg tablet 40 mg PO DAILY 03/26/25 03/26/25 03/25/25 History cholecalciferol (vitamin D3) 50 50 mcg PO DAILY 03/26/25 03/26/25 03/26/25 History mcg (2,000 unit) capsule clindamycin HCl 300 mg capsule 300 mg PO TID 03/26/25 03/26/25 03/26/25 History cyclobenzaprine 10 mg tablet 5 mg PO TID 03/26/25 03/26/25 03/26/25 History duloxetine 30 mg capsule,delayed 30 mg PO TID 03/26/25 03/26/25 03/26/25 History release empagliflozin 25 mg tablet 25 mg PO DAILY 03/26/25 03/26/25 03/26/25 History (Jardiance) glimepiride 4 mg tablet 4 mg PO DAILY 03/26/25 03/26/25 03/26/25 History ilzsej-uxbqhjph-mblgeav 1 cap PO TID 03/26/25 03/26/25 03/26/25 History 24,000-76,000-120,000 unit capsule,delayed rel (Creon) loperamide 2 mg capsule 2 mg PO TID PRN loose stool 03/26/25 03/26/25 Unknown History (Anti-Diarrheal (loperamide)) metoclopramide HCl 10 mg tablet 10 mg PO TID 03/26/25 03/26/25 03/26/25 History oxycodone-acetaminophen 10 mg-325 1 tablet PO TID pain 03/26/25 03/26/25 03/26/25 History mg tablet quetiapine 200 mg tablet 200 mg PO HS 03/26/25 03/26/25 03/25/25 History Allergies Allergy/AdvReac Type Severity Reaction Status Date / Time meloxicam Allergy Ulcers Verified 03/26/25 22:43 [facility] Past Medical History Medical History Amputation of one or more toes L foot digits #2 and #3 ([facility], Jun 2024 and Jul 2024) Diabetic foot ulcer DOUG on CPAP Colon polyp Cirrhosis GERD (gastroesophageal reflux disease) Myocardial infarct Diabetes HTN (hypertension) Obesity Social History Social History Smoking packs per day: 1.5 Smoking cigarettes per day: 30.0 Years smoked: 40 Smoking pack-years: 60.00 Smoking status: Light tobacco smoker Tobacco type: cigarettes and smokeless tobacco Second hand tobacco smoke exposure: No Alcohol intake: current Drinks per week: 2 Alcohol use details: current use rare occasional glass of wine, hx of alcohol abuse (5th of Vodka or Rum daily) Substance use: never Substance use type: does not use Other substance usage details: hydrocodone 5-acetaminophen 325 bid to tid Lack of Transportation: No Lack of Food: Never True Current Housing: I Have Housing Concerned About Future Housing: No Difficulty Paying Gas/Electric Bills: No Difficulty Paying for Meds: No Currently Unemployed: No Education: Decline to Answer Difficulty w/ Childcare or Family Care: No Living arrangements: alone Gender identity (if verbalized by the patient): Male Sexual Orientation (if Verbalized by the Patient): Straight or Heterosexual Spiritual care concerns: No Exam Narrative: GENERAL: Well-appearing, well-nourished, and in no acute distress. HEAD: Normocephalic, atraumatic. EYES: Non injected, non icteric ENT: Nares clear, no rhinorrhea or epistaxis. Gross auditory acuity intact. NECK: Supple. No meningismus. CHEST: Speaking in full sentences. No respiratory distress. HEART: Regular rate and rhythm. . ABDOMEN: Soft, nondistended. No rigidity or guarding. Not peritoneal EXTREMITIES: RLE edema. Amputation of left digits 2 and 3, well healing. Plantar Callouses of R foot. Able to perform r elbow flexion and extension, some R arm abduction at the shoulder, though full ROM limited. SKIN: Warm, dry. Scab/lesion overlying R anterior chest at clavicle. Erythema throught left foot/ankle and distal calf. NEURO: Alert and oriented. Answering questions. Following commands. Normal speech without aphasia or dysarthria. Sensation intact throught RUE including over deltoid. PSYCH: Congruent mood and affect. Course Vital Signs Vital signs: Vital Signs Temperature 98.7 F 03/26/25 15:47 Pulse Rate 77 03/26/25 15:47 Respiratory Rate 20 03/26/25 15:47 Blood Pressure 117/64 03/26/25 15:47 Pulse Oximetry 95 03/26/25 15:47 Oxygen Delivery Room Air 03/26/25 15:47 Temperature 98.2 F 03/27/25 14:00 Pulse Rate 89 03/27/25 14:00 Respiratory Rate 19 03/27/25 14:00 Blood Pressure 124/75 03/27/25 14:00 Pulse Oximetry 98 03/27/25 14:00 Oxygen Delivery Room Air 03/27/25 07:49 MDM - Fall MDM Narrative Medical decision making narrative: Patient presents with concern for R shoulder pain after falling and striking it on an object. Also concerned for right foot pain and redness. In the emergency department they are afebrile with vital signs within normal limits. However, does on reassessment developed a fever with temperature 100.9?. There is concern that he has failed outpatient antibiotic therapy for presumed cellulitis. Unknown which antibiotic currently on but presume cephalexin given states Rx a medication he is taking TID (Rx through [facility]). Acetaminophen ordered. Patient has leukocytosis. He has a normocytic anemia which is new from previous however the last 1 was years ago. Elevated CRP and ESR. Because patient received care to [facility], did call to see if they had bed availability but they confirm they do not. Skin/soft tissue inpatient antibiotics started. History of osteomyelitis and DM. Discussed with substation operator chief hospitalist Bridget REBOLLEDO who requests consultation to substation operator chief orthopedic surgeon Dr Carroll. Differential Diagnosis Differential diagnosis: Likely dislocation of shoulder region and other (fracture humerus/fracture clavicle; cellulitis; diabetic foot wound; osteomyelitis) Lab Data 03/27/25 05:36 03/27/25 05:36 Labs: Lab Results 03/26/25 03/26/25 03/27/25 Range/Units 17:31 20:36 05:34 WBC 14.7 H (4.5-10.0) K/mm3 RBC 4.43 L (4.6-6.20) M/mm3 Hgb 13.8 L (14.0-18.0) g/dL Hct 40.6 L (42.0-52.0) % MCV 91.6 (80-100) fl MCH 31.2 (26-34) pg MCHC 34.0 (32-36) g/dl RDW 12.6 (11.5-14.5) % Plt Count 232 D (150-375) k/mm3 MPV 9.2 (7.4-10.4) fl Immature Gran % (Auto) 1.0 H (0-0.5) % Neut % (Auto) 77.2 H (45.5-73.1) % Lymph % (Auto) 10.2 L (18.3-44.2) % Weston % (Auto) 9.7 H (2.6-8.5) % Eos % (Auto) 1.4 (0-4.4) % Baso % (Auto) 0.5 (0.2-1.2) % Lymph # (Auto) 1.50 (0.9-3.2) K/mm3 Weston # (Auto) 1.4 H (0.1-0.6) K/mm3 Eos # (Auto) 0.2 (0-0.3) K/mm3 Baso # (Auto) 0.1 (0.0-0.1) K/mm3 Abs Immat Gran (auto) 0.14 H (0.00-0.031) K/mm3 Absolute Neuts (auto) 11.3 H (1.3-6.7) K/mm3 Absolute Nucleated RBC 0.000 (0.0-0.012) K/mm3 Nucleated RBC % 0.0 (0.0-0.2) % ESR 38 H (0-20) mm/hr PT 15.3 H (11.1-14.7) Seconds INR 1.2 APTT 30.5 (22.3-36.8) Seconds Sodium 135 L (137-145) mmol/L Potassium 3.6 (3.4-5.0) mmol/L Chloride 97 L (98-107) mmol/L Carbon Dioxide 26 (22-30) mmol/L Anion Gap 12 (4-12) mmol/L BUN 14 (9-20) mg/dL Creatinine 1.00 (0.7-1.3) mg/dL Estim Creat Clear Calc 71 ml/min Estimated GFR > 60 (59 - ) Glucose 133 H (65-110) mg/dL POC Capillary Glucose 87 (65-105) mg/dl Hemoglobin A1c 6.2 H (<5.7) % Lactic Acid 1.4 (0.7-2.0) mmol/L Calcium 9.2 (8.4-10.2) mg/dL Magnesium (1.6-2.3) mg/dL Total Bilirubin 1.0 (0.2-1.3) mg/dL AST 43 (17-59) U/L ALT 35 (6-50) U/L Alkaline Phosphatase 147 H (38-126) U/L Troponin I < 0.012 (0.000-0.034) ng/mL C-Reactive Protein 25.1 H (<1.0) mg/dL Total Protein 9.1 H (6.3-8.2) g/dL Albumin 4.3 (3.5-5.1) g/dL Vitamin B12 748.0 (239-931) pg/mL Procalcitonin 0.2 ng/mL TSH (Reflex) 2.680 (0.465-4.68) uIU/mL 03/27/25 03/27/25 Range/Units 05:36 07:41 WBC 12.0 H (4.5-10.0) K/mm3 RBC 4.06 L (4.6-6.20) M/mm3 Hgb 12.5 L (14.0-18.0) g/dL Hct 37.3 L (42.0-52.0) % MCV 91.9 (80-100) fl MCH 30.8 (26-34) pg MCHC 33.5 (32-36) g/dl RDW 12.5 (11.5-14.5) % Plt Count 205 (150-375) k/mm3 MPV 9.6 (7.4-10.4) fl Immature Gran % (Auto) 1.0 H (0-0.5) % Neut % (Auto) 70.2 (45.5-73.1) % Lymph % (Auto) 11.8 L (18.3-44.2) % Weston % (Auto) 13.0 H (2.6-8.5) % Eos % (Auto) 3.2 (0-4.4) % Baso % (Auto) 0.8 (0.2-1.2) % Lymph # (Auto) 1.41 (0.9-3.2) K/mm3 Weston # (Auto) 1.6 H (0.1-0.6) K/mm3 Eos # (Auto) 0.4 H (0-0.3) K/mm3 Baso # (Auto) 0.1 (0.0-0.1) K/mm3 Abs Immat Gran (auto) 0.12 H (0.00-0.031) K/mm3 Absolute Neuts (auto) 8.4 H (1.3-6.7) K/mm3 Absolute Nucleated RBC 0.000 (0.0-0.012) K/mm3 Nucleated RBC % 0.0 (0.0-0.2) % ESR 111 H (0-20) mm/hr PT (11.1-14.7) Seconds INR APTT (22.3-36.8) Seconds Sodium 134 L (137-145) mmol/L Potassium 3.5 (3.4-5.0) mmol/L Chloride 100 (98-107) mmol/L Carbon Dioxide 24 (22-30) mmol/L Anion Gap 10 (4-12) mmol/L BUN 14 (9-20) mg/dL Creatinine 0.77 (0.7-1.3) mg/dL Estim Creat Clear Calc 93 ml/min Estimated GFR > 60 (59 - ) Glucose 127 H (65-110) mg/dL POC Capillary Glucose 133 H (65-105) mg/dl Hemoglobin A1c (<5.7) % Lactic Acid (0.7-2.0) mmol/L Calcium 8.7 (8.4-10.2) mg/dL Magnesium 2.3 (1.6-2.3) mg/dL Total Bilirubin 0.9 (0.2-1.3) mg/dL AST 42 (17-59) U/L ALT 30 (6-50) U/L Alkaline Phosphatase 139 H (38-126) U/L Troponin I (0.000-0.034) ng/mL C-Reactive Protein 19.7 H (<1.0) mg/dL Total Protein 7.5 (6.3-8.2) g/dL Albumin 3.6 (3.5-5.1) g/dL Vitamin B12 (239-931) pg/mL Procalcitonin ng/mL TSH (Reflex) (0.465-4.68) uIU/mL Imaging Data Radiologist's impression: Impressions Chest X-Ray 03/26/25 17:47 IMPRESSION: 1: Small patchy opacities in the left lower lung which represents atelectasis and/or airspace disease. Recommend follow-up to resolution. 2. Small left-sided pleural effusion. Shoulder X-Ray 03/26/25 17:48 IMPRESSION: 1. [ No acute bony abnormality identified.] 2. Mild degenerative change in the right acromioclavicular joint. 3.There are a few less than 5 mm radiopaque densities in the subdeltoid bursa which may represent calcium from calcific tendinitis If symptoms persist or worsen consider a short-term follow-up study or MRI imaging for further assessment. Ankle X-Ray 03/26/25 17:50 Impression: No evidence of osteomyelitis Foot X-Ray 03/26/25 17:51 IMPRESSION: 1. Lucencies identified in the distal third of the fifth metatarsal and base of the proximal phalanx of the fifth toe. Differential includes osteopenia, however, osteomyelitis is possible in the appropriate clinical setting. There is adjacent soft tissue swelling. If symptoms persist or worsen, consider an MRI of the right foot with and without contrast for further assessment. ECG Data EKG #1: Attestation: I personally reviewed and interpreted this ECG as follows: ECG completion date: 03/26/25 ECG completion time: 18:10 Interpretation: Normal sinus rhythm at a rate of 98 beats per minute. MO interval 132. QRS 98. QT/QTC 324/379. Good R-wave progression across the precordial leads. No marked T-wave inversions. Discharge Plan Discharge Clinical Impression: Leukocytosis, Normocytic anemia, Cellulitis of right lower leg, Abnormal plain x-ray of foot, Acute pain of right shoulder due to trauma, Pleural effusion, left, CRP elevated, ESR raised Fall Qualifiers: Encounter type: initial encounter Qualified Code(s): W19.XXXA - Unspecified fall, initial encounter Patient Disposition: Still a Patient Condition: Stable Time of Disposition: 18:40
--- OUTSIDE RECORDS SUMMARY | 2025-03-26 17:27 | XMS_ITS | Clinical Summary ---
Author Organization [facility] Address [address] [place] [id number] Care Team Providers Care Peoplesoft Analyst Name Role Phone Dennis Camejo MD Primary Care Provider [phone] Allergies Active Allergy Reactions Criticality Noted Date Comments Meloxicam Rash,Other (See comments) Medium 10/22/2015 Metformin Diarrhea Low 02/25/2022 Sulfamethoxazole-Trimethopr im Nausea only Low 08/25/2024 Medications albuterol HFA (PROVENTIL HFA,VENTOLIN HFA,PROAIR HFA) 90 mcg/actuation inhaler INHALE 1 PUFF BY MOUTH EVERY 4 TO 6 HOURS NEEDED SHORTNESS OF BREATH 4 Active budesonide EC (ENTOCORT EC) 3 mg 24 hr capsule Take 1 capsule (3 mg total) by mouth daily 4 Active buPROPion XL (WELLBUTRIN XL) 300 mg 24 hr tablet Take 1 tablet (300 mg total) by mouth daily Active cholecalciferol (VITAMIN D-3) 2000 unit tablet Take 1 tablet (2,000 Units total) by mouth daily Active doxepin (SINEquan) 75 mg capsule Take 2 capsules (150 mg total) by mouth daily Active DULoxetine DR (CYMBALTA) 30 mg capsule Take 1 capsule (30 mg total) by mouth daily Active empagliflozin (JARDIANCE) 25 mg tablet Take 0.5 tablets (12.5 mg total) by mouth daily Active gabapentin (NEURONTIN) 300 mg capsule Take 1 capsule (300 mg total) by mouth daily 2 Active glimepiride (AMARYL) 4 mg tablet Take 1 tablet (4 mg total) by mouth daily Active HYDROcodone-acetam inophen (NORCO) 5-325 mg per tablet Take 1 tablet by mouth every 8 (eight) hours as needed Active insulin glargine 100 unit/mL vial for injection Inject 70 Units under the skin daily Active Lactobac. rhamnosus GG-inulin 20 billion cell -200 mg capsule Take 1 capsule by mouth daily Active omeprazole (PriLOSEC) 40 mg capsule Take 1 capsule (40 mg total) by mouth daily Active QUEtiapine (SEROquel) 300 mg tablet Take 1 tablet (300 mg total) by mouth daily Active semaglutide (Ozempic) 1 mg/dose (2 mg/1.5 mL) pen injector injection Inject 0.75 mL (1 mg total) under the skin once a week Active sildenafiL (VIAGRA) 100 mg tablet Take 1 tablet (100 mg total) by mouth daily as needed Active triamcinolone (KENALOG) 0.5 % cream APPLY THIN LAYER TOPICALLY TO THE AFFECTED AREA TWICE DAILY 4 Active valACYclovir (VALTREX) 1 gram tablet Take 1 tablet (1,000 mg total) by mouth daily Active pancrelipase (CREON) 24,000 units of lipase capsuleIndications :exocrine pancreatic insufficiency Take 1 capsule by mouth 3 (three) times a day with meals Active ofloxacin (OCUFLOX) 0.3 % ophthalmic solution 1-2 drops in the affected eye every 2-4 hours for 2 days then 1-2 drops QID x 5 days. 3 Active diazePAM (VALIUM) 5 mg/mL solution Take 1 mL (5 mg total) by mouth every 8 (eight) hours as needed for anxiety Active acetaminophen (TYLENOL) 325 mg tablet Take 2 tablets (650 mg total) by mouth 5 Active cyclobenzaprine (FLEXERIL) 10 mg tablet TAKE 1 TABLET BY MOUTH EVERY OTHER DAY NEEDED 5 Active naloxone (NARCAN) 4 mg/actuation spray,non-aerosol Administer into affected nostril(s) 5 Active ondansetron ODT (ZOFRAN-ODT) 4 mg disintegrating tablet DISSOLVE 1 TABLET ON THE TONGUE EVERY 6 HOURS NEEDED FOR NAUSEA OR VOMITING 5 Active rosuvastatin (CRESTOR) 40 mg tablet Take 1 tablet (40 mg total) by mouth nightly Active testosterone 20.25 mg/1.25 gram (1.62 %) gel in metered-dose pump Place 40.5 mg on the skin daily Active Active Problems Problem Noted Date Diagnosed Date Esophageal varices without bleeding 04/25/2024 Primary hypertension 10/18/2023 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 10/18/2023 Major depressive disorder 10/18/2023 Sciatica of right side 10/18/2023 Other male erectile dysfunction 10/18/2023 Gastroesophageal reflux disease without esophagi tis 10/18/2023 Encounters Date Type Department Care Team Description 02/15/2025 3:13 PM CDT Anesthesia Event [address] [address] Tomi Oreilly MD 02/15/2025 1:30 PM CDT - 02/15/2025 2:00 PM CDT Surgery [facility] Digestive [address] [address] Devora Krishnamurthy MD ESOPHAGOGASTRODUODENOSCOPY 02/15/2025 12:03 PM CDT - 02/15/2025 4:18 PM CDT Hospital Encounter [address] [address] Devora Krishnamurthy MD Discharge Disposition: Discharge to home or self care 02/12/2025 Telephone [facility] [address] [place] [phone] Lucia Pisano RN GI PROCEDURE 3 DAY PRE CALL 02/08/2025 Telephone [facility] [address] [place] [phone] Lucia Pisano RN GI PROCEDURE 7 DAY PRE CALL 01/15/[address] [facility] Medicine Gastroenterolog y [address] [place] [address] [place] [address] Coty Granado GI Assessment pre procedure call 12/27/[address] [facility] Medicine Gastroenterolog y [facility] 12th [place] [address] [place] [address] LoyCoty from Last 3 Months Surgical History Surgery Date Site/Laterality Comments TOE AMPUTATION Left x2 UPPER GASTROINTESTINAL ENDOSCOPY COLONOSCOPY ANKLE SURGERY Medical History Medical History Date Comments Diabetes type 2, controlled Hypertension Cirrhosis (HCC) Reflux esophagitis Erectile dysfunction Depression Social History Tobacco Use Types Packs/Day Years Used Date Smoking Tobacco: Some Days Cigarettes Smokeless Tobacco: Never Tobacco Cessation:Ready to Q uit: Not Asked; Counseling Given: Not Answered AUDIT-C Answer Date Recorded Q1: How often do you have a drink containing alc ohol? Monthly or less 02/15/2025 Q2: How many drinks containi ng alcohol do you have on a typical day when you are drinking? 1 or 2 02/15/2025 Q3: How often do you have si x or more drinks on one occasion? Never 02/15/2025 Personal Safety Answer Date Recorded Have you ever been in or are you currently in a harmful physical or emotional relationship or is someone making you feel afraid or unsafe? Denies 02/15/2025 Sex and Gender Information Value Date Recorded Sex Assigned at Not on file Legal Sex Male 8:20 AM CDT Gender Identity Not on file Sexual Orientation Not on file Obstetrics History Last Filed Vital Signs Vital Sign Reading Time Taken Comments Blood Pressure 123/61 02/15/2025 3:55 PM CDT Pulse 80 02/15/2025 3:45 PM CDT Temperature 36.1 C (97 F) 02/15/2025 3:35 PM CDT Respiratory Rate 18 02/15/2025 3:45 PM CDT Oxygen Saturation 95% 02/15/2025 3:55 PM CDT Inhaled Oxygen Concentration - - Weight 90.7 kg (200 lb) 02/15/2025 1:16 PM CDT Height 177.8 cm (5' 10) 02/15/2025 1:16 PM CDT Body Mass Index 28.7 02/15/2025 1:16 PM CDT Plan of Treatment Health Maintenance Due Date Last Done Comments Albumin Creatinine Ratio, Urine 1965 Colon Cancer Screening-Colonoscopy 1965 Depression Screening 1965 Hemoglobin A1C 1965 Prostate Cancer Screening-PSA 1965 Dilated Eye Exam 1965 Foot Exam 1965 Regular Well Visit/Exam 18-64 02/17/1982 Pneumococcal vaccine <65 (1 of 2 - PCV) 02/17/1983 08/31/2005 Zoster Vaccine (1 of 2) 02/17/2014 Covid-19 Vaccine (3 - 2023-2 5 season) 2024 10/22/2020, 10/01/2020 Lipid Panel 10/24/2024 10/25/2023 eGFR 10/24/2024 10/25/2023 Influenza Vaccine (#1) 2025 7, 05/25/2016, 05/03/2014, Additional history exists DTaP/Tdap/Td Vaccine (3 - Td or Tdap) 04/06/2033 04/06/2023, 06/05/2009 Hepatitis B Screening Completed 10/25/2023 Hepatitis C Screening Completed 10/25/2023 Procedures Procedure Name Priority Date/Time Associated Diagnosis Comments EGD 02/15/2025 3:18 PM CDT ESOPHAGOGASTRODUODENOSCOPY 02/15 3:13 PM CDT Esophageal varices without bleeding, unspecified esophageal varices type (HCC) POCT GLUCOSE DEVICE Routine 02/15/2025 1 :20 PM CDT HEPATITIS C ANTIBODY Routine 10/25/2023 11:16 AM CDT Cirrhosis of liver without ascites, unspecified hepatic cirrhosis type (HCC) EGFR Routine 10/25/2023 11:16 AM CDT Cirrhosis of liver without ascites, unspecified hepatic cirrhosis type (HCC) LIPID PANEL Routine 10/25/2023 11:16 AM CDT Hypertriglyceride theodora from Last 3 Months or Most Recently Relevant to Health Maintenance Results * EGD (02/15/2025 3:18 PM CDT) Anatomical Region Laterality Modality Other Narrative Procedure Note Devora Krishnamurthy MD - 02/15/2025 3:18 PM CDT GI ENDOSCOPY [facility] Patient Name: Lupillo Tariq Procedure Date: 02/15/2025 3:18 PM Date of : 1965 Admit Type: Outpatient Age: 59 Gender: Male Attending MD: Devora Krishnamurthy M.D., Room: [facility] ENDOSCOPY ROOM 7 Note Status: Finalized Procedure: Upper GI endoscopy Indications: Cirrhosis with suspected esophageal varices Referring MD: Devora Krishnamurthy M.D. Providers: Devora Krishnamurthy M.D., Lazara Umaña M.D. (Fellow) Medicines: See the Anesthesia note for documentation of the administered medications Complications: No immediate complications. Estimated Blood Loss: Estimated blood loss: none. Procedure: Pre-Anesthesia Assessment: - Immediately prior to administration ofmedications, the patient was re-assessed for adequacy to receive sedatives. The benefits, risks, and alternatives to theprocedure and sedation were discussed and informed consentwas obtained. The scope was passed under direct vision. The [id number] [id number] endoscope was introduced through the mouth, and advanced to the second partof duodenum. The upper GI endoscopy was accomplished without difficulty. The patient tolerated the procedure well. Findings: Small (< 5 mm) varices were found in the lower third of theesophagus. Mild portal hypertensive gastropathy was found in the gastric body. The examined duodenum was normal. Impression: - Small (< 5 mm) esophageal varices. - Portal hypertensive gastropathy. - Normal examined duodenum. - No specimens collected. Recommendation: - Patient has a contact number available for emergencies. The signs and symptoms of potential delayed complications were discussed with thepatient. Return to normal activities tomorrow. Written discharge instructions were provided to thepatient. - Continue present medications. - [facility] - Return to referring provider as previouslyscheduled. Attending Participation: I was present and participated during the entire procedure, including non-vargas portions. Electronically signed by Devora Krishnamurthy MD Devora Krishnamurthy M.D. 02/15/2025 3:32:56 PM Number of Addenda: 0 Note Initiated On: 02/15/2025 3:18 PM Devora Krishnamurthy MD ENDOSCOPY PROCEDURES Final Resul t * POCT glucose (02/15/2025 1:20 PM CDT) Pathologist [facility] Glucose, POC 89 70 - 199 mg/dL Blood 02/15/2025 1:20 PM CDT 02/15/2025 1:20 PM CDT Devora Krishnamurthy MD LAB POCT ORDERABLES - DEVICE Fin al Result [facility] Department [place] [address] * eGFR (10/25/2023 11:16 AM CDT) Pathologist [facility] eGFR >90 >=60 mL/min/1. 73 m2 Comment: Interpretive Data Reference Interval Normal >/= 90 mL/min/1.73m2 Mildly decreased* 60 - 89 mL/min/1.73m2 Mildly to moderately decreased 45 - 59 mL/min/1.73m2 Moderately to severely decreased 30 - 44 mL/min/1.73m2 Severely decreased 15 - 29 mL/min/1.73m2 Kidney Failure < 15 mL/min/1.73m2 *Relative to young adult level Estimated glomerular filtration rate is determined by the 2020 CKD-EPI equation recommended by the National Kidney Foundation (A Unifying Approach to GFR Estimation: Recommendations of the NKF-ASK Task Force on Reassessing the Inclusion of Race in Diagnosing Kidney Disease, JASN 2020). The CKD-EPI equation should not be used for patients with unstable renal function and has not been validated in children and those over 70. Current interpretive data was last reviewed 2021. Blood 10/25/2023 11:1 6 AM CDT 10/25/2023 11:43 AM CDT Devora Krishnamurthy MD LAB BLOOD ORDERABLES Final Resul t Performing Organization Address City/[facility] Co de Phone Number K[facility]ISHMA [facility] Department [place] [place] [address] * Hepatitis C antibody Blood (10/25/2023 11:16 AM CDT) Hep C Ab Nonreactive Nonreactive Comment:Antibodies to HCV no t detected. Does NOT exclude the possibility of recent exposure to HCV. Current interpretive data was last revised on 22 Blood 10/25/2023 11:1 6 AM CDT 10/25/2023 11:43 AM CDT Devora Krishnamurthy MD LAB MICROBIOLOGY - GENERAL ORDER AMAURI Final Result [facility] [place] [address] * (ABNORMAL) Lipid panel (10/25/2023 11:16 AM CDT) Cholesterol 203(H) 30 - 199 mg/dL Comment: Interpretive Data Ages < or = 19 years Acceptable: <170 mg/dL Borderline high: 170-199 mg/dL High: >or= 200 mg/dL Ages > or = 20 years Desirable: <200 mg/dL Borderline high: 200-239 mg/dL High: >or= 240 mg/dL Literature References: 1. Expert Panel on Integrated Guidelines for Cardiovascular Health and Risk Reduction in Children and Adolescents. Pediatrics 2011;128:S213 2. NCEP Expert Panel. Circulation 2004;110:227 Current Interpretive Data was last revised on 2018. Triglycerides 303(H) <=149 mg/dL [facility] Comment: Interpretive Data Ages < or = 9 years Acceptable: <75 mg/dL Borderline high: 75-99 mg/dL High: >or= 100 mg/dL Ages 10 to 20 years Acceptable: <90 mg/dL Borderline high: 90-129 mg/dL High: >or= 130 mg/dL Ages > or = 20 years Desirable: <150 mg/dL Borderline high: 150-199 mg/dL High: 200-499 mg/dL Very high: >or= 499 mg/dL Literature References: 1. Expert Panel on Integrated Guidelines for Cardiovascular Health and Risk Reduction in Children and Adolescents. Pediatrics 2011;128:S213 2. NCEP Expert Panel. Circulation 2004;110:227 Current Interpretive Data was last revised on 2018. HDL 37(L) >=40 mg/dL [facility] Comment: Interpretive Data Ages < or = 19 years Acceptable: >45 mg/dL Borderline low: 40-45 mg/dL Low: <40 mg/dL Ages > or = 20 years Desirable: >or= 60 mg/dL Low: <40 mg/dL Literature References: 1. Expert Panel on Integrated Guidelines for Cardiovascular Health and Risk Reduction in Children and Adolescents. Pediatrics 2011;128:S213 2. NCEP Expert Panel. Circulation 2004;110:227 Current Interpretive Data was last revised on 2018. LDL, calculated 105 <=129 mg/dL [facility] Comment: Interpretive Data Ages < or = 19 years Acceptable: <110 mg/dL Borderline high: 110-129 mg/dL High: >or= 130 mg/dL Ages > or = 20 years Optimal: <100 mg/dL Near optimal: 100-129 mg/dL Borderline high: 130-159 mg/dL High: >160 mg/dL Literature References: 1. Expert Panel on Integrated Guidelines for Cardiovascular Health and Risk Reduction in Children and Adolescents. Pediatrics 2011;128:S213 2. NCEP Expert Panel. Circulation 2004;110:227 Current Interpretive Data was last revised on 2018. Non-HDL Cholesterol 166 mg/dL [facility] Comment: Interpretive Data Ages < or = 19 years Acceptable: <120 mg/dL Borderline high: 120-144 mg/dL High: >145 mg/dL Ages > or = 20 years When triglycerides are >200 mg/dL, Non-HDL cholesterol is a secondary target of therapy with treatment goals that are 30 mg/dL greater than the LDL cholesterol target. Literature References: 1. Expert Panel on Integrated Guidelines for Cardiovascular Health and Risk Reduction in Children and Adolescents. Pediatrics 2011;128:S213 2. NCEP Expert Panel. Circulation 2004;110:227 Current Interpretive Data was last revised on 2018. Chol/HDL ratio 5 [facility]MA [facility] Blood 10/25/2023 11:1 6 AM CDT 10/25/2023 11:43 AM CDT us Devora Krishnamurthy MD LAB BLOOD ORDERABLES Final Resul t [facility] [place] [address] from Last 3 Months or Most Recently Relevant to Health Maintenance Insurance [facility] MEDICARE ADVANTAGE [facility] MEDICARE ADVANTAGE Advance Directives For more information, please contact: [phone] * Full Code (Latest Code Status on File) Date Activated Date Inactivated Comments 02/15/2025 1:22 PM 02/15/2025 8:18 PM Care Teams Peoplesoft Analyst Relationship Specialty Start Date End Date Dennis Camejo MD [address] [facility] [place] [address] PCP - General Family Medicine 06/29/23
--- OUTSIDE RECORDS SUMMARY | 2025-03-26 17:27 | XMS_ITS | Clinical Summary ---
Author Organization [facility] [employer] Address [address] [place] [address] Care Team Providers Care Pastry Cook Name Role Phone Dennis Camejo MD Primary Care Provider [phone] Source Comments [facility],non-owned Affiliates and Associated Physician Practices is amultiple site organization consisting of ambulatory clinics and hospital sitesin [place], [place], [place] and [place]. This disclosure is being madepursuant to the Care Everywhere program and may not contain all information available regarding this patient. Last updated 18.[facility] Allergies No known active allergies Medications * [...] on file Legal Sex Male 5:57 AM FIRER RETORT Gender Identity Not on file Sexual Orientation [...] Subscriber ID:Not on file Address: [address] [place] [address] Payer ID:Not on file Group ID:Not on file Type:Self Pay Address: [facility] MANAGED MEDICARE ADV SELF PAY NO INSURANCE Member Subscriber Plan / Payer (Ef fective for All Dates) Name:Lupillo Jimenez Member ID:Not on file Relation to Subscriber:Not on file Name:LUPILLO JIMENEZ Subscriber ID:Not on file Address: [address] [place] [address] Payer ID:Not on file Group ID:Not on file Type:Self Pay Address: [facility] MEDICARE ADV Care Teams Pastry Cook Relationship Specialty Start Date End Date Dennis Camejo MD [address] [facility] [address] [place] [id number] PCP - General Family Medicine 04/09/23
--- OUTSIDE RECORDS SUMMARY | 2025-03-26 17:27 | XMS_ITS | Clinical Summary ---
Author Organization [facility] Address [facility] [place] [address] Care Team Providers Care Boring Mill Operator Name Role Phone Dennis Camejo MD Primary Care Provider [phone] Allergies Active Allergy Reactions Criticality Noted Date [...] Units total) by mouth daily. Active Pancrelipase, [id number], (CREON OR) Take 24,000 Units by mouth [...] Problems Problem Noted Date Diagnosed Date Osteomyelitis ([facility]) 08/20/2024 Encounters Date Type Department Care Team Description 03/22/2025 6:07 PM CDT - 03/22/2025 8:05 PM CDT Emergency [facility] [place] [address] Carly Leigh NP Foot Pain Discharge Disposition: Home or Self Care (Routine Discharge) 03/22/2025 Travel 03/22/2025 Telephone [facility] Multispecialty Care - [facility] [address] [facility], [address] [place] [id number] Colleen Ross NP Concerns; Appointment Request from [...] = 0.6 oz pur e alcohol) <1/week [facility] Utilities Answer Date Recorded In the past 12 months has [employer], [employer], oil, or water [employer] threatened to shut off services in your [...] any time in the past 12 m [employer], were you homeless or living in a chcf (including now)? 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 Procedure Name Priority Date/Time Associated Diagnosis Comments [...] - 2.0 MMOL/L 03/22/2025 7:07 PM CDT [facility] 03/22/2025 6:15 PM CDT [facility] Final Result [facility] [address] [place] [address], * (ABNORMAL) COMPREHENSIVE METABOLIC PANEL (03/22/2025 6:15 PM CDT) GLUCOSE 199(H) 70 - 99 MG/DL 03/22/2025 6:52 PM CDT [facility] BUN 10 7 - 18 MG/DL 03/22/2025 6:52 PM CDT [facility] CREATININE S/P/B 0.95 0.7 - 1.3 MG/DL 03/22/2025 6:52 PM CDT [facility] SODIUM S/P/B 137 136 - 145 MMOL/L 03/22/2025 6:52 PM CDT [facility] POTASSIUM S/P/B 4.0 3.5 - 5.1 MMOL/L 03/22/2025 6:52 PM CDT [facility] CHLORIDE S/P/B 106 97 - 115 MMOL/L 03/22/2025 6:52 PM CDT [facility] CO2 27.0 21 - 32 MMOL/L 03/22/2025 6:52 PM CDT [facility] CALCIUM S/P/B 9.2 8.5 - 10.1 MG/DL 03/22/2025 6:52 PM CDT [facility] BILIRUBIN TOTAL S/P/B 0.4 0.2 - 1.2 MG/DL 03/22/2025 6:52 PM CDT [facility] Comment: THIS ASSAY IS NOT RECOMMENDED FOR PATIENTS UNDERGOING TREATMENT WITH ELTROMBOPAG DUE TO THE POTENTIAL FOR FALSELY ELEVATED RESULTS. TOTAL PROTEIN S/P/B 8.3(H) 6.4 - 8.2 G/DL 03/22/2025 6:52 PM CDT [facility] ALBUMIN S/P/B 3.6 3.4 - 5.0 G/DL 03/22/2025 6:52 PM CDT [facility] AST 24 15 - 37 U/L 03/22/2025 6:52 PM CDT [facility] ALT 35 16 - 60 U/L 03/22/2025 6:52 PM T [facility] ALKALINE PHOSPHATASE S/P/B 142(H) 50 - 136 U/L 03/22/2025 6:52 PM CDT [facility] ANION GAP 4.0 2 - 10 MMOL/L 03/22/2025 6:52 PM CDT [facility] BUN CREATININE RATIO 10.5 6 - 26 03/22/2025 6:52 PM T [facility] A/G RATIO 0.8(L) 1.0 - 2.0 RATIO 03/22/2025 6:52 PM T [facility] GFR ESTIMATE >90 >90 ML/MIN/1.7 3 M2 03/22/2025 6:52 PM CDT [facility] Comment: NOTE: eGFR is not calculated for patients <18 years of age or gender unknown. This is an estimated GFR calculation using the new CKD EPI creatinine equation without race and so does not require a correction factor for race. This estimated GFR should not be used for calculating drug doses. 03/22/2025 6:15 PM CDT [facility] Final Result [facility] [address] [place] [address], [place] [phone] * (ABNORMAL) CBC W/DIFF AUTOMATED (03/22/2025 6:15 PM CDT) WBC 10.78 4.5 - 11.0 x10'3/uL 03/22/2025 6:26 PM CDT [facility] RBC 4.84 4.70 - 6.10 x10'6/uL 03/22/2025 6:26 PM CDT [facility] HGB 15.0 14.0 - 18.0 G/DL 03/22/2025 6:26 PM CDT [facility] HCT 44.7 43.0 - 54.0 % 03/22/2025 6:26 PM CDT [facility] MCV 92.4 80.0 - 94.0 FL 03/22/2025 6:26 PM CDT [facility] MCH 31.0 27.0 - 31.0 PG 03/22/2025 6:26 PM CDT [facility] MCHC 33.6 32.0 - 36.0 G/DL 03/22/2025 6:26 PM CDT [facility] RDW 12.8 11.5 - 14.5 % 03/22/2025 6:26 PM CDT [facility] PLT 195 130 - 400 x10'3/uL 03/22/2025 6:26 PM CDT [facility] MPV 9.5 9.3 - 12.2 FL 03/22/2025 6:26 PM CDT [facility] DIFFERENTIAL TYPE AUTOMATED DIFFERENTIAL 03/22/2025 6:26 PM CDT [facility] NEUTROPHILS % 63.8 % 03/22/2025 6:26 PM CDT [facility] LYMPHOCYTES % 21.2 % 03/22/2025 6:26 PM CDT [facility] MONOCYTES % 11.0 % 03/22/2025 6:26 PM CDT [facility] EOSINOPHILS 2.7 % 03/22/2025 6:26 PM CDT [facility] BASOPHILS 0.8 % 03/22/2025 6:26 PM CDT [facility] IMMATURE GRANS % 0.5 % 03/22/20 6:26 PM CDT [facility] ABS. NEUTROPHILS 6.88 1.80 - 7.70 x10'3/uL 03/22/2025 6:26 PM CDT [facility] ABS. LYMPHOCYTES 2.28 1.00 - 4.80 x10'3/uL 03/22/2025 6:26 PM CDT [facility] ABS. MONOCYTES 1.19(H) 0.30 - 0.82 x10'3/uL 03/22/2025 6:26 PM CDT [facility] ABS. EOSINOPHILS 0.29 0.04 - 0.54 x10'3/uL 03/22/2025 6:26 PM CDT [facility] ABS. BASOPHILS 0.09(H) 0.01 - 0.08 x10'3/uL 03/22/2025 6:26 PM CDT [facility] ABS. IMMATURE GRANULOCYTES 0.05 0.00 - 0.49 x10'3/uL 03/22/2025 6:26 PM CDT [facility] 03/22/2025 6:15 PM CDT [facility] Final Result [facility] [address] [place] [address], [place] [phone] * XR FOOT LT 3V (03/22/2025 5:59 [...] 6:41 PM Narrative 03/22/2025 6:45 PM CDT [address] [address] INDICATION: Foot pain. COMPARISON: Left foot radiographs 08/20/2024 TECHNIQUE: * 3 views of the left foot. 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 No convincing radiographic evidence for osseous erosion. Marked lateral subluxation (valgus) of the first MTP joint, new since prior exam no acute fractures. Atherosclerosis. No significant soft tissue abnormality. Procedure Note Juan Ulrich DO - 03/22/[address] [address] INDICATION: Foot pain. COMPARISON: Left foot radiographs [...] 6:46 PM Narrative 03/22/2025 6:48 PM CDT [address] [address] INDICATION: Foot pain. COMPARISON: Radiographs 08/23/2010 TECHNIQUE: * 3 radiographs of the right foot. FINDINGS: Partially visualized. Tibia and fibula fixation hardware. Remote healed fracture of the distal metatarsal. No acute fractures. No osseous erosions. Soft tissue swelling of the lateral forefoot. Procedure Note Juan Ulrich DO - 03/22/[address] [place], [place] [address] INDICATION: Foot pain. COMPARISON: Radiographs 08/23/2010 TECHNIQUE: [...] Documents on File Type Date Recorded Patient Arresting Gear Operator Expl anation Advance Directives and Livin g Will 09/05/2024 2:02 PM * Full Code (Latest Code Status on File) Date Activated Date Inactivated Comments 08/20/2024 10:03 PM 09/01/2024 3:55 PM Care Teams Boring Mill Operator Relationship Specialty Start Date End Date Dennis Camejo MD PCP - General FAMILY PRACTICE 01/28/22
[2025-03-26] MEDS: MORPHINE SULFATE (*CRX) 4 MG/ML INJ IV PUSH (17:34)
[2025-03-26 17:38] LABS: Hematocrit 40.6 % (42.0-52.0); Hemoglobin 13.8 g/dL (14.0-18.0); Immature Granulocyte Percent A 1.0 % (0-0.5); Lymphocytes Absolute Auto 1.50 K/mm3 (0.9-3.2); Mean Corpuscular HGB Conc 34.0 g/dl (32-36); Mean Corpuscular Hemoglobin 31.2 pg (26-34); Mean Corpuscular Volume 91.6 fl (80-100); Nucleated Red Blood Cells Absolute Auto 0.000 K/mm3 (0.0-0.012); Nucleated Red Blood Cells Perc 0.0 % (0.0-0.2); Platelet Count Result 232 k/mm3 (150-375); Red Blood Count 4.43 M/mm3 (4.6-6.20); White Blood Count 14.7 K/mm3 (4.5-10.0)
[2025-03-26 17:53] LABS: Alanine Aminotransferase 35 U/L (6-50); Albumin Level 4.3 g/dL (3.5-5.1); Alkaline Phosphatase 147 U/L (38-126); Anion Gap 12 mmol/L (4-12); Aspartate Amino Transferase 43 U/L (17-59); Bilirubin,Total 1.0 mg/dL (0.2-1.3); Blood Urea Nitrogen 14 mg/dL (9-20); Calcium 9.2 mg/dL (8.4-10.2); Carbon Dioxide 26 mmol/L (22-30); Chloride 97 mmol/L (98-107); Estimated CRCL calculation 71 ml/min; Estimated Glomerular Filt Rate > 60; Glucose 133 mg/dL (65-110); INR 1.2; Potassium 3.6 mmol/L (3.4-5.0); Prothrombin Time 15.3 Seconds (11.1-14.7); Sodium 135 mmol/L (137-145); Total Protein 9.1 g/dL (6.3-8.2)
[2025-03-26 17:54] LABS: Partial Thromboplastin Time 30.5 Seconds (22.3-36.8)
[2025-03-26 18:02] LABS: Troponin I < 0.012 ng/mL (0.000-0.034)
[2025-03-26 18:03] LABS: CRP 25.1 mg/dL (<1.0)
[2025-03-26] MEDS: CEFEPIME 1 GM in SODIUM CHLORIDE 0.9% IV 50 ML 100 ML IVPB (18:23)
[2025-03-26] MEDS: ACETAMINOPHEN 500 MG TABLET 1000 MG PO (18:23)
--- NOTE | 2025-03-26 19:12 | PC.NURSE ---
Assumed care of patient after receiving bedside report from JW Chamberlain @ [phone]
[2025-03-26] MEDS: VANCOMYCIN 1,250 MG/NS 250 ML 1,250 MG/250 ML BAG 166.67 MG IVPB (19:17)
--- NOTE | 2025-03-26 19:57 | PC.NURSE ---
This RN notified of patients bed assignment.
[2025-03-26] MEDS: VANCOMYCIN HCL 1,000 MG in SODIUM CHLORIDE 0.9% IV 250 ML 250 MG IVPB (20:38)
[2025-03-26] MEDS: ACETAMINOPHEN 325 MG TABLET 650 MG PO (20:47)
[2025-03-26 21:55] LABS: Hemoglobin A1C 6.2 % (<5.7)
[2025-03-26] MEDS: oxyCODONE/ACETAMINOPHEN (*CRX) 10-325 MG TABLET 1 TAB PO (21:55)
[2025-03-26] MEDS: metroNIDAZOLE 500 MG/ISO 100ML 500 MG/100 ML BAG 100 MG IVPB (21:56)
[2025-03-26 22:07] LABS: Procalcitonin 0.2 ng/mL
--- NOTE | 2025-03-26 22:32 | ADMGEN ---
This patient, Lupillo Tariq Jr., was admitted to 3 [facility] Surg Room 306-01. Patient/family oriented to hospital policies and general routines including ID bracelet, bed and alarms, visiting hours, pain management, procedures, bathroom and other care routines, personal items, smoking policy, room service/diet, and visiting hours. Information on how to activate the Rapid Response Team has been discussed. Patient/Family are encouraged to report perceived risks to care and to ask questions if they do not understand what they are told or what they should do.
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
[2025-03-27] MEDS: diazePAM (*CRX) 5 MG TABLET PO ×2 (04:08→20:22)
[2025-03-27 04:11] VITALS: BP 135/76; PULSE 83; RESP 16; TEMP 36.8; O2SAT 96
[2025-03-27] MEDS: LIPASE/AMYLASE/PROTEASE 12,000 UNITS CAP 2 CAP PO ×3 (05:55→20:22)
[2025-03-27] MEDS: oxyCODONE/ACETAMINOPHEN (*CRX) 10-325 MG TABLET 1 TAB PO ×2 (05:55→17:21)
[2025-03-27] MEDS: CYCLOBENZAPRINE HCL 5 MG TABLET PO ×3 (05:55→20:21)
[2025-03-27 05:56] LABS: Hematocrit 37.3 % (42.0-52.0); Hemoglobin 12.5 g/dL (14.0-18.0); Immature Granulocyte Percent A 1.0 % (0-0.5); Lymphocytes Absolute Auto 1.41 K/mm3 (0.9-3.2); Mean Corpuscular HGB Conc 33.5 g/dl (32-36); Mean Corpuscular Hemoglobin 30.8 pg (26-34); Mean Corpuscular Volume 91.9 fl (80-100); Nucleated Red Blood Cells Absolute Auto 0.000 K/mm3 (0.0-0.012); Nucleated Red Blood Cells Perc 0.0 % (0.0-0.2); Platelet Count Result 205 k/mm3 (150-375); Red Blood Count 4.06 M/mm3 (4.6-6.20); White Blood Count 12.0 K/mm3 (4.5-10.0)
[2025-03-27] MEDS: metroNIDAZOLE 500 MG/ISO 100ML 500 MG/100 ML BAG 100 MG IVPB ×3 (05:56→22:29)
[2025-03-27] MEDS: CEFEPIME 2 GM in SODIUM CHLORIDE 0.9% IV 50 ML 100 ML IVPB ×2 (05:56→17:22)
[2025-03-27 06:22] LABS: Alanine Aminotransferase 30 U/L (6-50); Albumin Level 3.6 g/dL (3.5-5.1); Alkaline Phosphatase 139 U/L (38-126); Anion Gap 10 mmol/L (4-12); Aspartate Amino Transferase 42 U/L (17-59); Bilirubin,Total 0.9 mg/dL (0.2-1.3); Blood Urea Nitrogen 14 mg/dL (9-20); Calcium 8.7 mg/dL (8.4-10.2); Carbon Dioxide 24 mmol/L (22-30); Chloride 100 mmol/L (98-107); Estimated CRCL calculation 93 ml/min; Estimated Glomerular Filt Rate > 60; Glucose 127 mg/dL (65-110); Magnesium 2.3 mg/dL (1.6-2.3); Potassium 3.5 mmol/L (3.4-5.0); Sodium 134 mmol/L (137-145); Total Protein 7.5 g/dL (6.3-8.2)
[2025-03-27 06:38] LABS: CRP 19.7 mg/dL (<1.0)
[2025-03-27 07:49] VITALS: O2SAT 96
[2025-03-27] MEDS: PANTOPRAZOLE 40 MG TABLET PO (08:36)
[2025-03-27] MEDS: CHOLECALCIFEROL (VITAMIN D3) 25 MCG (1,000 UNITS) TABLET 50 MCG PO (08:36)
[2025-03-27] MEDS: EMPAGLIFLOZIN 25 MG TABLET PO (08:37)
[2025-03-27] MEDS: ATORVASTATIN 40 MG TABLET PO (08:37)
[2025-03-27] MEDS: buPROPion HCL SR (12 HR) 150 MG TAB 300 MG PO (08:37)
[2025-03-27] MEDS: GLIMEPIRIDE 2 MG TABLET 4 MG PO (08:38)
[2025-03-27] MEDS: VANCOMYCIN 1,500 MG/NS 500 ML 1,500 MG/500 ML BAG 250 MG IVPB ×2 (08:38→20:12)
--- NOTE | 2025-03-27 09:14 | PM.CNOR ---
Assessment and Plan Assessment and plan (1) Diabetic foot ulcer: Code(s): E11.621 - Type 2 diabetes mellitus with foot ulcer; L97.509 - Non-pressure chronic ulcer of other part of unspecified foot with unspecified severity <ARPITA Clay - Last Filed: 03/27/25 12:17> Status: Acute <ARPITA Clay - Last Filed: 03/27/25 12:17> Assessment and Plan: 60-year-old male admitted due to frequent falls and right shoulder pain with subsequent right lower extremity cellulitis. Patient reports having been recently seen at [facility] for right foot erythema for which he was placed on oral antibiotics with no follow-up. patient had foot and ankle radiographs performed in the emergency room. Radiographs of the right foot revealed lucencies at the distal 3rd aspect of the 5th metatarsal and base of the proximal phalanx of the 5th toe. Based on individual interpretation of radiographs, suspect previous right 5th metatarsal fracture with remodeling. Degree of possible lucency however. Ankle radiographs reveal postsurgical changes with fixation of the distal tibia and fibula with intact hardware. On exam today, patient has significant erythema to the dorsal midfoot and forefoot with extension to the plantar midfoot. Associated ulcer on the right plantar aspect of the 5th metatarsal head. Small opening with purulence drainage noted. Recommended bedside debridement to explore the wound and possible extension to areas of erythema. Patient verbalized understanding agreed with plan of care. Wound prepped with alcohol and iodine. Fifteen blade knife utilized to debride callus type tissue with an underlying ulcer measuring 0.2 x 0.2 x 0.2 cm. Wound cultured and sent for stat Gram stain, aerobic and anaerobic culture. Wound dressed with silver gel and covered dry. Concern regarding significant erythema which extends to the tibia. Palpable pedal pulses. Area of possible pus noted on the plantar midfoot. Discussed condition, nature, etiology course of natural history. Conservative and operative treatment options reviewed as well as risks benefits of each. Recommended MRI of the right foot at this time for further evaluation. MRI with contrast recommended. Nursing notified. Continue IV antibiotics. Limit weight-bearing to the right lower extremity. Daily dressing changes with silver gel to the open ulcer. Will determine further plan of care pending MRI results. Okay to resume diet at this time. <ARPITA Clay - Last Filed: 03/27/25 12:17> (2) Cellulitis of right lower leg: Code(s): L03.115 - Cellulitis of right lower limb <ARPITA Clay - Last Filed: 03/27/25 12:17> Status: Acute <ARPITA Clay - Last Filed: 03/27/25 12:17> Assessment and Plan: Continue IV antibiotics. <ARPITA Clay - Last Filed: 03/27/25 12:17> (3) Diabetes mellitus with neuropathy: Code(s): E11.40 - Type 2 diabetes mellitus with diabetic neuropathy, unspecified <ARPITA Clay - Last Filed: 03/27/25 12:17> Status: Chronic <ARPITA Clay - Last Filed: 03/27/25 12:17> Assessment and Plan: Minimal sensation to the right lower extremity. History of left foot toe amputations. <ARPITA Clay - Last Filed: 03/27/25 12:17> Assessment and Plan: patient history and medical record reviewed. Radiographs reviewed. Currently in MRI to evaluate for abscess or osteomyelitis. Wound care and antibiotics. Will plan definitive surgical treatment based on MRI results. <Fausto Carroll MD - Last Filed: 03/27/25 15:50> History of Present Illness HPI Consult date: 03/27/25 <ARPITA Clay - Last Filed: 03/27/25 12:17> 03/27/25 <Fausto Carroll MD - Last Filed: 03/27/25 15:50> Chief complaint: Cellulitis failed PO abx; mult falls; R shoulder p <ARPITA Clay - Last Filed: 03/27/25 12:17> Narrative: 60 year old male admitted for multiple falls and concerns of cellulitis of the right foot/lower extremity. Per patient and medical records, he was seen at [facility] for right foot swelling, redness and concerns for cellulitis. He was started on oral antibiotics. His redness has progressed from the dorsal midfoot/forefoot to the plantar foot. He does endorse a long history of a callus at the right lateral forefoot over the 5th metatarsal head. Orthopedic consult requested due to concerns for OM of the right foot on XR. <ARPITA Clay - Last Filed: 03/27/25 12:17> Review of Systems Review of Systems: All systems reviewed & are unremarkable except as noted in HPI and below <ARPITA Clay - Last Filed: 03/27/25 12:17> [facility], [facility] Past Medical History Medical History: Medical History (Updated 03/27/25 @ 12:09 by ARPITA Clay) Diabetic foot ulcer DOUG on CPAP Colon polyp Cirrhosis GERD (gastroesophageal reflux disease) Myocardial infarct Diabetes HTN (hypertension) Obesity <ARPITA Clay - Last Filed: 03/27/25 12:17> Social History Social History: Social History Smoking packs per day: 1.5 Smoking cigarettes per day: 30.0 Years smoked: 40 Smoking pack-years: 60.00 Smoking status: Light tobacco smoker Tobacco type: cigarettes and smokeless tobacco Second hand tobacco smoke exposure: No Alcohol intake: current Drinks per week: 2 Alcohol use details: current use rare occasional glass of wine, hx of alcohol abuse (5th of Vodka or Rum daily) Substance use: never Substance use type: does not use Other substance usage details: hydrocodone 5-acetaminophen 325 bid to tid Lack of Transportation: No Lack of Food: Never True Current Housing: I Have Housing Concerned About Future Housing: No Difficulty Paying Gas/Electric Bills: No Difficulty Paying for Meds: No Currently Unemployed: No Education: Decline to Answer Difficulty w/ Childcare or Family Care: No Living arrangements: alone Gender identity (if verbalized by the patient): Male Sexual Orientation (if Verbalized by the Patient): Straight or Heterosexual Spiritual care concerns: No <ARPITA Clay - Last Filed: 03/27/25 12:17> Meds Home Medications and Allergies Home medications: Home Medications ?Medication ?Instructions ?Recorded ?Confirmed ?Type bupropion HCl 200 mg tablet,12 hr 300 mg PO DAILY 03/28/20 03/26/25 History sustained-release diazepam 5 mg tablet 5 mg PO BID PRN Anxiety 03/28/20 03/26/25 History doxepin 100 mg capsule 150 mg PO HS 03/28/20 03/26/25 History insulin glargine 100 unit/mL 100 unit subcut QPM 03/28/20 03/26/25 History subcutaneous solution (Lantus U-100 Insulin) omeprazole 20 mg capsule,delayed 40 mg PO DAILY 03/28/20 03/26/25 History release semaglutide 1 mg/dose (2 mg/1.5 1 mg subcut WEEKLY 03/28/20 03/26/25 History mL) subcutaneous pen injector (Ozempic) budesonide 3 mg 3 mg PO DAILY #30 ea 07/09/23 03/26/25 Rx capsule,delayed,extended release atorvastatin 40 mg tablet 40 mg PO DAILY 03/26/25 03/26/25 History cholecalciferol (vitamin D3) 50 50 mcg PO DAILY 03/26/25 03/26/25 History mcg (2,000 unit) capsule clindamycin HCl 300 mg capsule 300 mg PO TID 03/26/25 03/26/25 History cyclobenzaprine 10 mg tablet 5 mg PO TID 03/26/25 03/26/25 History duloxetine 30 mg capsule,delayed 30 mg PO TID 03/26/25 03/26/25 History release empagliflozin 25 mg tablet 25 mg PO DAILY 03/26/25 03/26/25 History (Jardiance) glimepiride 4 mg tablet 4 mg PO DAILY 03/26/25 03/26/25 History yswoxf-nilldwoq-hojpdcx 1 cap PO TID 03/26/25 03/26/25 History 24,000-76,000-120,000 unit capsule,delayed rel (Creon) loperamide 2 mg capsule 2 mg PO TID PRN loose stool 03/26/25 03/26/25 History (Anti-Diarrheal (loperamide)) metoclopramide HCl 10 mg tablet 10 mg PO TID 03/26/25 03/26/25 History oxycodone-acetaminophen 10 mg-325 1 tablet PO TID pain 03/26/25 03/26/25 History mg tablet quetiapine 200 mg tablet 200 mg PO HS 03/26/25 03/26/25 History <ARPITA Clay - Last Filed: 03/27/25 12:17> Allergies/Adverse reactions: Allergies Allergy/AdvReac Type Severity Reaction Status Date / Time meloxicam Allergy Ulcers Verified 03/26/25 22:43 <Kisha Bland, [facility] - Last Filed: 03/27/25 12:17> Vital Signs Vital Signs - 24 hr 03/26/25 15:47 03/26/25 16:08 03/26/25 16:09 Temperature 37.1 C 38.3 C H Pulse Rate 77 102 H Respiratory Rate 20 12 Blood Pressure 117/64 157/64 H Pulse Oximetry 95 100 94 Oxygen Delivery Room Air Room Air 03/26/25 16:11 03/26/25 16:15 03/26/25 16:17 Temperature Pulse Rate 101 H 100 100 Respiratory Rate 13 15 15 Blood Pressure 157/64 H 138/80 Pulse Oximetry 100 100 Oxygen Delivery 03/26/25 16:30 03/26/25 16:31 03/26/25 16:45 Temperature Pulse Rate 98 99 99 Respiratory Rate 16 21 H 20 Blood Pressure 140/70 Pulse Oximetry 95 97 98 Oxygen Delivery 03/26/25 16:46 03/26/25 17:00 03/26/25 17:02 Temperature Pulse Rate 100 99 100 Respiratory Rate 22 H 22 H 18 Blood Pressure 137/73 136/72 Pulse Oximetry 94 98 97 Oxygen Delivery 03/26/25 17:03 03/26/25 17:15 03/26/25 17:16 Temperature Pulse Rate 100 99 99 Respiratory Rate 15 19 15 Blood Pressure 138/72 Pulse Oximetry 94 96 98 Oxygen Delivery 03/26/25 17:30 03/26/25 17:46 03/26/25 18:27 Temperature 37.4 C Pulse Rate 97 99 Respiratory Rate 18 17 Blood Pressure Pulse Oximetry 94 94 Oxygen Delivery 03/26/25 18:30 03/26/25 18:45 03/26/25 19:00 Temperature Pulse Rate 99 102 H 102 H Respiratory Rate 18 24 H 17 Blood Pressure Pulse Oximetry 93 93 93 Oxygen Delivery 03/26/25 20:15 03/26/25 20:34 03/26/25 21:15 Temperature 36.9 C Pulse Rate 97 97 Respiratory Rate 16 18 Blood Pressure 132/77 Pulse Oximetry 95 98 Oxygen Delivery Room Air 03/26/25 23:15 03/27/25 04:11 03/27/25 07:49 Temperature 36.8 C Pulse Rate 83 Respiratory Rate 16 Blood Pressure 135/76 Pulse Oximetry 96 96 Oxygen Delivery Autopap Room Air <KishaCLIFF AriasP - Last Filed: 03/27/25 12:17> Exam Const: General: comfortable and no acute distress <CLIFF ClayP - Last Filed: 03/27/25 12:17> HENMT: Mouth: Yes moist mucous membranes <Kisha Bland [facility] - Last Filed: 03/27/25 12:17> Eyes: General: appearance normal, both eyes and all related structures <CLIFF ClayP - Last Filed: 03/27/25 12:17> Neck: Neck: supple and no JVD <Kisha Bland [facility] - Last Filed: 03/27/25 12:17> Resp: Effort & Inspection: normal respiratory effort <CLIFF ClayP - Last Filed: 03/27/25 12:17> Cardio: Rate: regular rate <Kisha Bland [facility] - Last Filed: 03/27/25 12:17> Rhythm: regular rhythm <Kisha Bland [facility] - Last Filed: 03/27/25 12:17> GI: Inspection: non-distended <CLIFF ClayP - Last Filed: 03/27/25 12:17> GI Palp: Yes Soft to palpation and No Tenderness to palpation present (GI) <Kisha Bland [facility] - Last Filed: 03/27/25 12:17> Neuro: General: gait normal <Kisha Bland [facility] - Last Filed: 03/27/25 12:17> Cognition (Neuro): normal cognition <CLIFF ClayP - Last Filed: 03/27/25 12:17> Speech: normal speech <CLIFF ClayP - Last Filed: 03/27/25 12:17> Extrem: Right lower extremity: hip/thigh Details: normal to inspection and normal ROM; no tenderness and no swelling, knee Details: normal to inspection and normal ROM; no tenderness and no swelling, lower leg Details: normal to inspection, ankle (erythema ) Details: tenderness, swelling and other (callus/ulcer on the plantar aspect of the 5th met head ); no lacerations and foot Details: abnormal to inspection Details: erythematous, toes with normal ROM, vascular exam Details: dorsalis pedis pulse present and motor-sensory exam Details: light-touch abnormal <ARPITA Clay - Last Filed: 03/27/25 12:17> Left lower extremity: foot Details: abnormal to inspection Details: a deformity Location: of the great toe and of the hallux valgus; not of the 2nd digit (amp ) and not of the 3rd digit (amp ) <ARPITA Clay - Last Filed: 03/27/25 12:17> Psych: Mental Status: mental status grossly normal <ARPITA Clay - Last Filed: 03/27/25 12:17> Affect: normal affect <ARPITA Clay - Last Filed: 03/27/25 12:17> Results Labs Result Diagrams: 03/27/25 05:36 03/27/25 05:36 <CLIFF ClayP - Last Filed: 03/27/25 12:17> Labs: Abnormal lab results 03/26/25 03/27/25 03/27/25 Range/Units 17:31 05:36 07:41 WBC 14.7 H 12.0 H (4.5-10.0) K/mm3 RBC 4.43 L 4.06 L (4.6-6.20) M/mm3 Hgb 13.8 L 12.5 L (14.0-18.0) g/dL Hct 40.6 L 37.3 L (42.0-52.0) % Immature Gran % (Auto) 1.0 H 1.0 H (0-0.5) % Neut % (Auto) 77.2 H (45.5-73.1) % Lymph % (Auto) 10.2 L 11.8 L (18.3-44.2) % Jennings % (Auto) 9.7 H 13.0 H (2.6-8.5) % Jennings # (Auto) 1.4 H 1.6 H (0.1-0.6) K/mm3 Eos # (Auto) 0.4 H (0-0.3) K/mm3 Abs Immat Gran (auto) 0.14 H 0.12 H (0.00-0.031) K/mm3 Absolute Neuts (auto) 11.3 H 8.4 H (1.3-6.7) K/mm3 ESR 38 H 111 H (0-20) mm/hr PT 15.3 H (11.1-14.7) Seconds Sodium 135 L 134 L (137-145) mmol/L Chloride 97 L (98-107) mmol/L Glucose 133 H 127 H (65-110) mg/dL POC Capillary Glucose 133 H (65-105) mg/dl Hemoglobin A1c 6.2 H (<5.7) % Alkaline Phosphatase 147 H 139 H (38-126) U/L C-Reactive Protein 25.1 H 19.7 H (<1.0) mg/dL Total Protein 9.1 H (6.3-8.2) g/dL H & H 03/26/25 03/27/25 Range/Units 17:31 05:36 Hgb 13.8 L 12.5 L (14.0-18.0) g/dL Hct 40.6 L 37.3 L (42.0-52.0) % Coagulation 03/26/25 Range/Units 17:31 INR 1.2 All other labs normal. <ARPITA Clay - Last Filed: 03/27/25 12:17> Debridement/Burn/Wound Pre Procedure Consent was obtained, Procedures/risks were explained, Questions were answered, Correct patient identified and Correct side and site confirmed <ARPITA Clay - Last Filed: 03/27/25 12:17> Episode New Episode <ARPITA Clay - Last Filed: 03/27/25 12:17> Area was prepped and draped using sterile technique?: Yes <ARPITA Clay - Last Filed: 03/27/25 12:17> Ulcer/Wound Debridement, skin, first 20 sq cm or less: Yes Right ( Plantar 5th metatarsal head) <ARPITA Clay - Last Filed: 03/27/25 12:17> Comments:: Debridement of the skin, subcutaneous tissue debrided under sterile conditions with #15 blade knife. All devitalized tissue removed. Procedure tolerated well. Patient instructed on post-debridement dressing changes. Reviewed signs/symptoms of complications to report to the office. Patient verbalized understanding and agrees with plan of care. <ARPITA Clay - Last Filed: 03/27/25 12:17> Dressing Applied antibiotic ointment and Applied sterile dressing <ARPITA Clay - Last Filed: 03/27/25 12:17> Post Procedure Patient tolerated the procedure well?: Tolerated procedure well <ARPITA Clay - Last Filed: 03/27/25 12:17>
[2025-03-27 11:42] LABS: Alveolar/Arterial O2 Gradient 36.6 mmHg; Carboxyhemoglobin 1.5 % THb (0-2.0); Fractional Inspired Oxygen 21 %; HCO3 ABG 22.7 mEq/l (22.0-26.0); Methemoglobin ABG 0.3 %THb (0-1.5); Oxygen Content ABG 17.6 %vol (16.0-22.0); Oxygen Saturation ABG 95.0 % (95.0-100.0); PCO2 ABG 34.8 mmHg (35.0-45.0); PO2 ABG 71.5 mmHg (80.0-100.0); PO2 FiO2 Ratio Arterial Blood 3.40 %; Reduced Hemoglobin 7.2 %THb (0-5.0)
[2025-03-27 11:43] LABS: Modified Allen's Test Pass; Site Drawn LEFT RADIAL
[2025-03-27 12:02] LABS: Ammonia 13 umol/L (9-30)
[2025-03-27 12:16] LABS: Thyroid Stimulating Hormone Reflex 2.680 uIU/mL (0.465-4.68)
[2025-03-27 12:31] LABS: Vitamin B12 748.0 pg/mL (239-931)
[2025-03-27] MEDS: BUDESONIDE 3 MG CAP.SR.24H PO (13:40)
[2025-03-27] MEDS: ENOXAPARIN 40 MG/0.4 ML SYRINGE SUB-Q (13:42)
[2025-03-27 14:00] VITALS: BP 124/75; PULSE 89; RESP 19; TEMP 36.8; O2SAT 98
--- NOTE | 2025-03-27 18:48 | PC.NURSE ---
This RN administered 0800 vanc this AM. When IV flushed to initiate abx, blood return noted. IV started. Pt stood to void approx 45 mins later; IV not leaking at this time. When IV completed approx 2 hours post initiation, IV catheter hub was disconnected from J loop. Pt denies messing with IV. Bed sheets/blanket wet. Pharmacy and MD notified pt received only partial dose of abx.
[2025-03-27 19:38] VITALS: PULSE 91; RESP 20; O2SAT 93
[2025-03-27 20:12] VITALS: BP 137/70; PULSE 91; RESP 18; TEMP 36.3; O2SAT 96
[2025-03-27] MEDS: DOXEPIN HCL 25 MG CAPSULE 150 MG PO (20:20)
[2025-03-27] MEDS: ACETAMINOPHEN 325 MG TABLET 650 MG PO (20:22)
[2025-03-27 22:19] VITALS: PULSE 83; O2SAT 97
[2025-03-28] VITALS (19 sets, daily range): BP systolic 100–144; BP diastolic 64–89; PULSE 82–94; RESP 12–20; TEMP 35.9–36.8; O2SAT 92–99
[2025-03-28] MEDS: LIPASE/AMYLASE/PROTEASE 12,000 UNITS CAP 2 CAP PO ×2 (05:23→20:58)
[2025-03-28] MEDS: CYCLOBENZAPRINE HCL 5 MG TABLET PO ×2 (05:23→20:58)
[2025-03-28] MEDS: CEFEPIME 2 GM in SODIUM CHLORIDE 0.9% IV 50 ML 100 ML IVPB ×2 (05:23→20:55)
[2025-03-28] MEDS: metroNIDAZOLE 500 MG/ISO 100ML 500 MG/100 ML BAG 100 MG IVPB ×3 (05:57→21:42)
[2025-03-28 06:57] LABS: Hematocrit 37.6 % (42.0-52.0); Hemoglobin 12.6 g/dL (14.0-18.0); Immature Granulocyte Percent A 0.9 % (0-0.5); Lymphocytes Absolute Auto 1.31 K/mm3 (0.9-3.2); Mean Corpuscular HGB Conc 33.5 g/dl (32-36); Mean Corpuscular Hemoglobin 30.8 pg (26-34); Mean Corpuscular Volume 91.9 fl (80-100); Nucleated Red Blood Cells Absolute Auto 0.000 K/mm3 (0.0-0.012); Nucleated Red Blood Cells Perc 0.0 % (0.0-0.2); Platelet Count Result 222 k/mm3 (150-375); Red Blood Count 4.09 M/mm3 (4.6-6.20); White Blood Count 10.1 K/mm3 (4.5-10.0)
[2025-03-28 07:15] LABS: Alanine Aminotransferase 34 U/L (6-50); Albumin Level 3.7 g/dL (3.5-5.1); Alkaline Phosphatase 139 U/L (38-126); Anion Gap 12 mmol/L (4-12); Aspartate Amino Transferase 43 U/L (17-59); Bilirubin,Total 0.7 mg/dL (0.2-1.3); Blood Urea Nitrogen 11 mg/dL (9-20); Calcium 8.6 mg/dL (8.4-10.2); Carbon Dioxide 23 mmol/L (22-30); Chloride 103 mmol/L (98-107); Estimated CRCL calculation 99 ml/min; Estimated Glomerular Filt Rate > 60; Glucose 113 mg/dL (65-110); Magnesium 2.1 mg/dL (1.6-2.3); Potassium 3.7 mmol/L (3.4-5.0); Sodium 138 mmol/L (137-145); Total Protein 7.9 g/dL (6.3-8.2)
[2025-03-28 08:05] LABS: CRP 13.9 mg/dL (<1.0)
--- NOTE | 2025-03-28 08:05 | P.PNOP_ITS ---
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 MRI shows bony changes of the 5th metatarsal and ulceration. On exam appears to track plantar smith. Discussed with patient. Callus and ulceration getting worse over the past several weeks. Purulent drainage. Desires operative treatment. Indicated for right foot debridement. Discussed nonoperative and operative treatment options with the patient. Risks and benefits of each as well as alternatives were reviewed. All of the patient's questions were answered. The risks of surgery reviewed including but not limited to: Neurovascular damage, wound complication, infection, blood clot, pulmonary embolus, stroke, myocardial infarction, and anesthetic risks up to and including . Continued pain and possible dysfunction were explained. Specific risks of the procedure including later recurrence of deformity. No guarantees were offered. If complications occur, the patient understands the need for further treatment, possible further surgery. Patient verbalizes understanding and wishes to proceed. PLAN: Right foot debridement (2) Diabetes mellitus with neuropathy: Qualifiers: Diabetes mellitus type: type 2 Diabetes mellitus detention insulin use: without predatory animal exterminator use Qualified Code(s): E11.40 - Type 2 diabetes mellitus with diabetic neuropathy, unspecified Code(s): E11.40 - Type 2 diabetes mellitus with diabetic neuropathy, unspecified Status: Chronic (3) Cellulitis of right lower leg: Code(s): L03.115 - Cellulitis of right lower limb Status: Acute Subjective Subjective Date/Time Seen: 03/28/25 08:05 Principal diagnosis: right diabetic foot ulcer, cellulitis Review of Systems Constitutional: Constitutional: Denies fever(s) Eyes: Eyes: Denies blurry vision ENT: Reports Normal hearing present Cardiovascular: Cardiovascular: Denies chest pain and Denies dyspnea Respiratory: Respiratory: Denies dyspnea and Denies wheezing Gastrointestinal: Gastrointestinal: Denies abdominal pain Genitourinary: Genitourinary: Denies urinary urgency Musculoskeletal: Musculoskeletal: Reports as per HPI and Denies numbness Integumentary/Breasts: Skin/Breast: Denies changing lesions and Denies sores Neurologic: Reports Normal hearing present, Denies behavioral changes, Denies confusion, Denies numbness and Denies convulsions Psychiatric: Psychiatric: Denies behavioral changes, Denies confusion and Denies hallucinations Endocrine: Endocrine: Denies heat intolerance Hematologic/Lymphatic: Hematologic/Lymphatic: Denies easy bleeding Allergic/Immunologic: Allergic/Immunologic: Denies wheezing Exam Const: General: comfortable and no acute distress HENMT: Mouth: Yes moist mucous membranes Eyes: General: appearance normal, both eyes and all related structures Neck: Neck: supple and no JVD Resp: Effort & Inspection: normal respiratory effort Cardio: Rate: regular rate Rhythm: regular rhythm Neuro: Cognition (Neuro): normal cognition Speech: normal speech Extrem: Right lower extremity: hip/thigh Details: normal to inspection and normal ROM; no tenderness and no swelling, knee Details: normal to inspection and normal ROM; no tenderness and no swelling, lower leg Details: normal to inspection, ankle (erythema ) Details: tenderness, swelling and other (callus/ulcer on the plantar aspect of the 5th met head ); no lacerations and foot Details: abnormal to inspection Details: erythematous, toes with normal ROM, vascular exam Details: dorsalis pedis pulse present and motor-sensory exam Details: light-touch abnormal Left lower extremity: foot Details: abnormal to inspection Details: a deformity Location: of the great toe and of the hallux valgus; not of the 2nd digit (amp ) and not of the 3rd digit (amp ) Psych: Mental Status: mental status grossly normal Affect: normal affect Objective Data Vital Signs Vital Signs: Vital Signs - 24 hr 03/27/25 14:00 03/27/25 19:38 03/27/25 20:00 Temperature 98.2 F Pulse Rate 89 91 Respiratory Rate 19 20 Blood Pressure 124/75 Pulse Oximetry 98 93 Oxygen Delivery Room Air CPAP Fraction of Inspired Oxygen 21 03/27/25 20:12 03/27/25 22:19 03/28/25 00:53 Temperature 97.3 F L 97.3 F L Pulse Rate 91 83 87 Respiratory Rate 18 16 Blood Pressure 137/70 133/89 Pulse Oximetry 96 97 94 Oxygen Delivery Autopap Fraction of Inspired Oxygen 03/28/25 05:04 Temperature 98.1 F Pulse Rate 90 Respiratory Rate 16 Blood Pressure 142/75 H Pulse Oximetry 94 Oxygen Delivery Fraction of Inspired Oxygen Intake/Output Intake/Output: Intake & Output 03/25/25 03/26/25 03/27/25 03/28/25 23:59 23:59 23:59 23:59 Intake Total 750 3325 700 Output Total 3060 1975 Balance 750 660 -6445 Meds/Results Medications: Active Medications Generic Name Dose Route Start Last Admin Trade Name Freq PRN Reason Stop Dose Admin Acetaminophen 650 mg 03/26/25 18:40 03/27/25 20:22 Acetaminophen 325 Mg Tablet PO 650 mg Q4H PRN Administration Mild Pain (1-3) or Fever Lipase/Protease/Amylase 2 cap 03/27/25 06:00 03/28/25 05:23 Lipase/Amylase/Protease 12,000 Units Cap PO 2 cap Q8HR TORRES Administration Atorvastatin Calcium 40 mg 03/27/25 09:00 03/27/25 08:37 Atorvastatin 40 Mg Tablet PO 40 mg DAILY TORRES Administration Budesonide 3 mg 03/27/25 09:00 03/27/25 13:40 Budesonide 3 Mg Cap.Sr.24h PO 3 mg DAILY TORRES Administration Bupropion HCl 300 mg 03/27/25 09:00 03/27/25 08:37 Bupropion Hcl Sr (12 Hr) 150 Mg Tab PO 300 mg DAILY TORRES Administration Cyclobenzaprine HCl 5 mg 03/27/25 06:00 03/28/25 05:23 Cyclobenzaprine Hcl 5 Mg Tablet PO 5 mg Q8HR TORRES Administration Dextrose 12.5 gm 03/26/25 18:40 Dextrose 50% 25 Gm/50 Ml Syringe IV PUSH PRN PRN Hypoglycemia Protocol Diazepam 5 mg 03/27/25 00:55 03/27/25 20:22 Diazepam (*Crx) 5 Mg Tablet PO 5 mg Q12H PRN Administration Anxiety Doxepin HCl 150 mg 03/27/25 21:00 03/27/25 20:20 Doxepin Hcl 25 Mg Capsule PO 150 mg HS TORRES Administration Duloxetine HCl 30 mg 03/27/25 06:00 03/28/25 05:23 Duloxetine Hcl 30 Mg Capsule.Dr PO 30 mg Q8HR TORRES Administration Empagliflozin 25 mg 03/27/25 09:00 03/27/25 08:37 Empagliflozin 25 Mg Tablet PO 25 mg On Hold: 03/27/25 16:36 DAILY TORRES Administration Enoxaparin Sodium 40 mg 03/27/25 09:00 03/27/25 13:42 Enoxaparin 40 Mg/0.4 Ml Syringe SUB-Q 40 mg On Hold: 03/27/25 16:36 DAILY TORRES Administration Glimepiride 4 mg 03/27/25 09:00 03/27/25 08:38 Glimepiride 2 Mg Tablet PO 4 mg DAILY TORRES Administration Glucagon 1 mg 03/26/25 18:40 Glucagon For Inj 1 Mg Vial IM PRN PRN Hypoglycemia Protocol Glucose 15 gm 03/26/25 18:40 Glucose Oral Gel 15 Gm Of Glucse In 37.5 Gm Tube PO PRN PRN Hypoglycemia Protocol Dextrose 1,000 mls @ 100 mls/hr 03/26/25 18:40 Dextrose 5% 1,000 Ml IVPB PRN PRN Hypoglycemia Protocol Cefepime HCl 2 gm/ Sodium 50 mls @ 100 mls/hr 03/27/25 06:00 03/28/25 05:53 Chloride IVPB Infused Q12H TORRES Infusion Metronidazole 500 mg in 100 mls @ 100 mls/hr 03/26/25 22:00 03/28/25 06:57 Flagyl 500 Mg/Iso Soln 100 Ml IVPB Infused Q8HR T[facility]RES Infusion Vancomycin HCl 1,500 mg in 500 mls @ 250 mls/hr 03/28/25 08:00 Vancomycin 1,500 Mg/Ns 500 Ml IVPB Q8H [facility] Insulin Aspart 3 - 6 units 03/27/25 08:00 03/27/25 18:47 Insulin Aspart (*Bkc) 100 Units/Ml SUB-Q Not Given TIDWM [facility] Protocol Loperamide HCl 2 mg 03/27/25 00:55 Loperamide Hcl 2 Mg Capsule PO Q8H PRN Loose Stool Metoclopramide HCl 10 mg 03/27/25 00:55 Metoclopramide Hcl 10 Mg Tablet PO TID PRN nausea Ondansetron HCl 4 mg 03/26/25 18:40 Ondansetron Inj 4 Mg/2 Ml Vial IV PUSH Q4H PRN Nausea Oxycodone/Acetaminophen 1 tab 03/26/25 21:46 03/27/25 17:21 Oxycodone/Acetaminophen (*Crx) 10-325 Mg Tablet PO 1 tab Q8HR PRN Administration Pain Rated 7-10 Pantoprazole Sodium 40 mg 03/27/25 09:00 03/27/25 08:36 Pantoprazole 40 Mg Tablet PO 40 mg QAM [facility]RES Administration Quetiapine Fumarate 200 mg 03/27/25 01:00 03/27/25 20:21 Quetiapine Fumarate 100 Mg Tablet PO 200 mg HS TORRES Administration Vitamin D 50 mcg 03/27/25 09:00 03/27/25 08:36 Cholecalciferol (Vitamin D3) 25 Mcg (1,000 Units) Tablet PO 50 mcg DAILY TORRES Administration Radiology Results: ITS Impressions Chest X-Ray 03/26/25 17:47 IMPRESSION: 1: Small patchy opacities in the left lower lung which represents atelectasis and/or airspace disease. Recommend follow-up to resolution. 2. Small left-sided pleural effusion. Shoulder X-Ray 03/26/25 17:48 IMPRESSION: 1. [ No acute bony abnormality identified.] 2. Mild degenerative change in the right acromioclavicular joint. 3.There are a few less than 5 mm radiopaque densities in the subdeltoid bursa which may represent calcium from calcific tendinitis If symptoms persist or worsen consider a short-term follow-up study or MRI i maging for further assessment. Ankle X-Ray 03/26/25 17:50 Impression: No evidence of osteomyelitis Foot X-Ray 03/26/25 17:51 IMPRESSION: 1. Lucencies identified in the distal third of the fifth metatarsal and base of the proximal phalanx of the fifth toe. Differential includes osteopenia, however, osteomyelitis is possible in the appropriate clinical setting. There is adjacent soft tissue swelling. If symptoms persist or worsen, consider an MRI of the right foot with and without contrast for further assessment. Foot MRI 03/27/25 16:45 IMPRESSION: 1. Ulceration at the plantar/lateral aspect of the forefoot immediately deep to a small osseous excrescence at the distal diaphysis of the fifth metatarsal resulting from an old healed fracture deformity, likely representing a pressure erosion resulting from the osseous excrescence. There is marrow edema and enhancement in the region of the fracture deformity and adjacent ulceration without evident cortical erosion on either MRI or prior radiographs and without evident geographic loss of T1 marrow fat signal to more specifically suggest osteomyelitis. Differential would include early osteomyelitis, reactive edema related to adjacent infection or stress reaction resulting from the malunion. Labs Labs: Laboratory Results - last 24 hr 03/27/25 03/27/25 03/27/25 05:34 11:34 11:43 WBC RBC Hgb Hct MCV MCH MCHC RDW Plt Count MPV Immature Gran % (Auto) Neut % (Auto) Lymph % (Auto) [place] % (Auto) Eos % (Auto) Baso % (Auto) Lymph # (Auto) [place] # (Auto) Eos # (Auto) Baso # (Auto) Abs Immat Gran (auto) Absolute Neuts (auto) Absolute Nucleated RBC Nucleated RBC % ESR Puncture Site Left radial ABG pH 7.432 ABG pCO2 34.8 L ABG pO2 71.5 L ABG PO2/FiO2 Ratio 3.40 ABG HCO3 22.7 ABG O2 Saturation 95.0 ABG O2 Content 17.6 ABG Base Excess -1.0 A-a Gradient 36.6 Oxyhemoglobin 91.0 Carboxyhemoglobin 1.5 Methemoglobin 0.3 Reduced Hemoglobin 7.2 H Total Hemoglobin 13.7 O2 Delivery Device Room air O2 Liters/Min Not Reportable FiO2 21 Sodium Potassium Chloride Carbon Dioxide Anion Gap BUN Creatinine Estim Creat Clear Calc Estimated GFR Glucose POC Capillary Glucose 172 H Calcium Magnesium Total Bilirubin AST ALT Alkaline Phosphatase Ammonia Total Protein Albumin Vitamin B12 748.0 TSH (Reflex) 2.680 Vancomycin Trough 03/27/25 03/27/25 03/27/25 11:45 16:43 20:14 WBC RBC Hgb Hct MCV MCH MCHC RDW Plt Count MPV Immature Gran % (Auto) Neut % (Auto) Lymph % (Auto) [place] % (Auto) Eos % (Auto) Baso % (Auto) Lymph # (Auto) [place] # (Auto) Eos # (Auto) Baso # (Auto) Abs Immat Gran (auto) Absolute Neuts (auto) Absolute Nucleated RBC Nucleated RBC % ESR Puncture Site ABG pH ABG pCO2 ABG pO2 ABG PO2/FiO2 Ratio ABG HCO3 ABG O2 Saturation ABG O2 Content ABG Base Excess A-a Gradient Oxyhemoglobin Carboxyhemoglobin Methemoglobin Reduced Hemoglobin Total Hemoglobin O2 Delivery Device O2 Liters/Min FiO2 Sodium Potassium Chloride Carbon Dioxide Anion Gap BUN Creatinine Estim Creat Clear Calc Estimated GFR Glucose POC Capillary Glucose 125 H 167 H Calcium Magnesium Total Bilirubin AST ALT Alkaline Phosphatase Ammonia 13 Total Protein Albumin Vitamin B12 TSH (Reflex) Vancomycin Trough 03/28/25 03/28/25 06:44 07:52 WBC 10.1 H RBC 4.09 L Hgb 12.6 L Hct 37.6 L MCV 91.9 MCH 30.8 MCHC 33.5 RDW 12.5 Plt Count 222 MPV 9.5 Immature Gran % (Auto) 0.9 H Neut % (Auto) 71.8 Lymph % (Auto) 12.9 L [place] % (Auto) 10.3 H Eos % (Auto) 3.2 Baso % (Auto) 0.9 Lymph # (Auto) 1.31 [place] # (Auto) 1.0 H Eos # (Auto) 0.3 Baso # (Auto) 0.1 Abs Immat Gran (auto) 0.09 H Absolute Neuts (auto) 7.3 H Absolute Nucleated RBC 0.000 Nucleated RBC % 0.0 ESR 123 H Puncture Site ABG pH ABG pCO2 ABG pO2 ABG PO2/FiO2 Ratio ABG HCO3 ABG O2 Saturation ABG O2 Content ABG Base Excess A-a Gradient Oxyhemoglobin Carboxyhemoglobin Methemoglobin Reduced Hemoglobin Total Hemoglobin O2 Delivery Device O2 Liters/Min FiO2 Sodium 138 Potassium 3.7 Chloride 103 Carbon Dioxide 23 Anion Gap 12 BUN 11 Creatinine 0.72 Estim Creat Clear Calc 99 Estimated GFR > 60 Glucose 113 H POC Capillary Glucose 121 H Calcium 8.6 Magnesium 2.1 Total Bilirubin 0.7 AST 43 ALT 34 Alkaline Phosphatase 139 H Ammonia Total Protein 7.9 Albumin 3.7 Vitamin B12 TSH (Reflex) Vancomycin Trough 9.4 L
--- NOTE | 2025-03-28 08:08 | WPDHPUPDATE1 ---
History and Physical Update Update Date/Time: 03/28/25 08:08 History and Physical has been reviewed, including an updated exam of the patient. There are NO changes in the patient's condition. Risks, benefits, and alternatives have been discussed and questions answered. Patient agrees to proceed with procedure.
[2025-03-28] MEDS: VANCOMYCIN 1,500 MG/NS 500 ML 1,500 MG/500 ML BAG 250 MG IVPB ×2 (08:19→15:24)
[2025-03-28] MEDS: GLIMEPIRIDE 2 MG TABLET 4 MG PO (08:20)
[2025-03-28] MEDS: ATORVASTATIN 40 MG TABLET PO (08:20)
[2025-03-28] MEDS: CHOLECALCIFEROL (VITAMIN D3) 25 MCG (1,000 UNITS) TABLET 50 MCG PO (08:20)
[2025-03-28] MEDS: BUDESONIDE 3 MG CAP.SR.24H PO (08:20)
[2025-03-28] MEDS: buPROPion HCL SR (12 HR) 150 MG TAB 300 MG PO (08:20)
[2025-03-28] MEDS: PANTOPRAZOLE 40 MG TABLET PO (08:20)
[2025-03-28] MEDS: oxyCODONE/ACETAMINOPHEN (*CRX) 10-325 MG TABLET 1 TAB PO ×2 (08:21→20:56)
--- NOTE | 2025-03-28 09:40 | P.CDI_ITS ---
<Statement entered by Romy Heller MD - 03/30/25 13:25> This documentation has been reviewed and approved. ruled out CDI Query Clarification Request 1) Please clarify if osteomyelitis has been ruled in or ruled out 2)Please clarify whether the following conditions are related to the patients diabetes mellitus/diabetic foot ulcer 1) cellulitis 2) osteomyelitis (if ruled in) * Conditions are related to diabetes mellitus/diabetic foot ulcer * Conditions are not related to diabetes mellitus/diabetic foot ulcer * Other, please specify * Unable to determine H&P: Assessment and plan (1) Cellulitis of right lower leg: Code(s): L03.115 - Cellulitis of right lower limb Status: Acute Assessment and Plan: -Right foot with significant swelling, erythema, warmth and tenderness. -Outlined area on plantar surface feels like fluctuance present -Cefepime, Flagyl, vancomycin in place -Dr. 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 Borja consulted (4) Multiple falls: Code(s): R29.6 - Repeated falls Status: Acute Assessment and Plan: -Patient notes about a dozen or so falls this year, complains of dizziness at times and neuropathy affects balance as well (5) Diabetes mellitus with neuropathy: Code(s): E11.40 - Type 2 diabetes mellitus with diabetic neuropathy, unspecified Status: Chronic Assessment and Plan: -Continue glimepiride, Jardiance and Lantus (with 20% dose reduction) -ACHS fingerstick glucose and diabetic diet -Did not get Lantus on night of admission unless he took his own at home before ER visit Ortho: (1) Diabetic foot ulcer: Qualifiers: Diabetic foot ulcer location: other Diabetes mellitus type: type 2 Laterality: right 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 MRI shows bony changes of the 5th metatarsal and ulceration. On exam appears to track plantar smith. Discussed with patient. Callus and ulceration getting worse over the past several weeks. Purulent drainage. Desires operative treatment. Indicated for right foot debridement. Discussed nonoperative and operative treatment options with the patient. Risks and benefits of each as well as alternatives were reviewed. All of the patient's questions were answered. The risks of surgery reviewed including but not limited to: Neurovascular damage, wound complication, infection, blood clot, pulmonary embolus, stroke, myocardial infarction, and anesthetic risks up to and including . Continued pain and possible dysfunction were explained. Specific risks of the procedure including later recurrence of deformity. No guarantees were offered. If complications occur, the patient understands the need for further treatment, possible further surgery. Patient verbalizes understanding and wishes to proceed. PLAN: Right foot debridement (2) Diabetes mellitus with neuropathy: Qualifiers: Diabetes mellitus type: type 2 Diabetes mellitus detention insulin use: without exterminator helper termite use Qualified Code(s): E11.40 - Type 2 diabetes mellitus with diabetic neuropathy, unspecified Code(s): E11.40 - Type 2 diabetes mellitus with diabetic neuropathy, unspecified Status: Chronic (3) Cellulitis of right lower leg: Code(s): L03.115 - Cellulitis of right lower limb Status: Acute Foot MRI: IMPRESSION: 1. Ulceration at the plantar/lateral aspect of the forefoot immediately deep to a small osseous excrescence at the distal diaphysis of the fifth metatarsal resulting from an old healed fracture deformity, likely representing a pressure erosion resulting from the osseous excrescence. There is marrow edema and enhancement in the region of the fracture deformity and adjacent ulceration without evident cortical erosion on either MRI or prior radiographs and without evident geographic loss of T1 marrow fat signal to more specifically suggest osteomyelitis. Differential would include early osteomyelitis, reactive edema related to adjacent infection or stress reaction resulting from the malunion.
--- NOTE | 2025-03-28 15:05 | WPDANESEPPF ---
Anes - Initial Pre Proc Eval Procedure: Operation Date: 03/28/25 15:00 Proposed Procedures p Debridement Right Foot - Fausto Carroll MD Date/Time: 03/28/25 15:05 Surgeon: Yeni Camarena MD Pre Op Diagnosis: Cellulitis failed PO abx; mult falls; R shoulder p Patient Data Age: 60 Gender: M Height: 1.8 m Weight: 90.6 kg Last Vital Signs Temp 36.4 C 03/28/25 14:30 Pulse 88 03/28/25 14:30 Resp 14 03/28/25 14:30 BP 129/76 03/28/25 14:30 Pulse Ox 97 03/28/25 14:30 O2 Del Method Room Air 03/28/25 14:30 FiO2 21 03/28/25 11:23 Allergies Allergy/AdvReac Type Severity Reaction Status Date / Time meloxicam Allergy Ulcers Verified 03/26/25 22:43 Home Medications ?Medication ?Instructions ?Recorded ?Confirmed ?Type bupropion HCl 200 mg tablet,12 hr 300 mg PO DAILY 03/28/20 03/26/25 History sustained-release diazepam 5 mg tablet 5 mg PO BID PRN Anxiety 03/28/20 03/26/25 History doxepin 100 mg capsule 150 mg PO HS 03/28/20 03/26/25 History insulin glargine 100 unit/mL 100 unit subcut QPM 03/28/20 03/26/25 History subcutaneous solution (Lantus U-100 Insulin) omeprazole 20 mg capsule,delayed 40 mg PO DAILY 03/28/20 03/26/25 History release semaglutide 1 mg/dose (2 mg/1.5 1 mg subcut WEEKLY 03/28/20 03/26/25 History mL) subcutaneous pen injector (Ozempic) budesonide 3 mg 3 mg PO DAILY #30 ea 07/09/23 03/26/25 Rx capsule,delayed,extended release atorvastatin 40 mg tablet 40 mg PO DAILY 03/26/25 03/26/25 History cholecalciferol (vitamin D3) 50 50 mcg PO DAILY 03/26/25 03/26/25 History mcg (2,000 unit) capsule clindamycin HCl 300 mg capsule 300 mg PO TID 03/26/25 03/26/25 History cyclobenzaprine 10 mg tablet 5 mg PO TID 03/26/25 03/26/25 History duloxetine 30 mg capsule,delayed 30 mg PO TID 03/26/25 03/26/25 History release empagliflozin 25 mg tablet 25 mg PO DAILY 03/26/25 03/26/25 History (Jardiance) glimepiride 4 mg tablet 4 mg PO DAILY 03/26/25 03/26/25 History [id number]-[id number]-pydwuwd 1 cap PO TID 03/26/25 03/26/25 History 24,000-76,000-120,000 unit capsule,delayed rel (Creon) loperamide 2 mg capsule 2 mg PO TID PRN loose stool 03/26/25 03/26/25 History (Anti-Diarrheal (loperamide)) metoclopramide HCl 10 mg tablet 10 mg PO TID 03/26/25 03/26/25 History oxycodone-acetaminophen 10 mg-325 1 tablet PO TID pain 03/26/25 03/26/25 History mg tablet quetiapine 200 mg tablet 200 mg PO HS 03/26/25 03/26/25 History Laboratory Tests 03/27/25 03/27/25 03/28/25 16:43 20:14 06:44 WBC 10.1 H K/mm3 (4.5-10.0) RBC 4.09 L M/mm3 (4.6-6.20) Hgb 12.6 L g/dL (14.0-18.0) Hct 37.6 L % (42.0-52.0) MCV 91.9 fl (80-100) MCH 30.8 pg (26-34) MCHC 33.5 g/dl (32-36) RDW 12.5 % (11.5-14.5) Plt Count 222 k/mm3 (150-375) MPV 9.5 fl (7.4-10.4) Immature Gran % (Auto) 0.9 H % (0-0.5) Neut % (Auto) 71.8 % (45.5-73.1) Lymph % (Auto) 12.9 L % (18.3-44.2) [place] % (Auto) 10.3 H % (2.6-8.5) Eos % (Auto) 3.2 % (0-4.4) Baso % (Auto) 0.9 % (0.2-1.2) Lymph # (Auto) 1.31 K/mm3 (0.9-3.2) [place] # (Auto) 1.0 H K/mm3 (0.1-0.6) Eos # (Auto) 0.3 K/mm3 (0-0.3) Baso # (Auto) 0.1 K/mm3 (0.0-0.1) Abs Immat Gran (auto) 0.09 H K/mm3 (0.00-0.031) Absolute Neuts (auto) 7.3 H K/mm3 (1.3-6.7) Absolute Nucleated RBC 0.000 K/mm3 (0.0-0.012) Nucleated RBC % 0.0 % (0.0-0.2) ESR 123 H mm/hr (0-20) Sodium 138 mmol/L (137-145) Potassium 3.7 mmol/L (3.4-5.0) Chloride 103 mmol/L (98-107) Carbon Dioxide 23 mmol/L (22-30) Anion Gap 12 mmol/L (4-12) BUN 11 mg/dL (9-20) Creatinine 0.72 mg/dL (0.7-1.3) Estim Creat Clear Calc 99 ml/min Estimated GFR > 60 (59 - ) Glucose 113 H mg/dL (65-110) POC Capillary Glucose 125 H mg/dl 167 H mg/dl (65-105) (65-105) Calcium 8.6 mg/dL (8.4-10.2) Magnesium 2.1 mg/dL (1.6-2.3) Total Bilirubin 0.7 mg/dL (0.2-1.3) AST 43 U/L (17-59) ALT 34 U/L (6-50) Alkaline Phosphatase 139 H U/L (38-126) C-Reactive Protein 13.9 H mg/dL (<1.0) Total Protein 7.9 g/dL (6.3-8.2) Albumin 3.7 g/dL (3.5-5.1) Vancomycin Trough 9.4 L ug/mL (10.0-20.0) 03/28/25 03/28/25 03/28/25 07:52 11:55 14:37 WBC RBC Hgb Hct MCV MCH MCHC RDW Plt Count MPV Immature Gran % (Auto) Neut % (Auto) Lymph % (Auto) [place] % (Auto) Eos % (Auto) Baso % (Auto) Lymph # (Auto) [place] # (Auto) Eos # (Auto) Baso # (Auto) Abs Immat Gran (auto) Absolute Neuts (auto) Absolute Nucleated RBC Nucleated RBC % ESR Sodium Potassium Chloride Carbon Dioxide Anion Gap BUN Creatinine Estim Creat Clear Calc Estimated GFR Glucose POC Capillary Glucose 121 H mg/dl 103 mg/dl 81 mg/dl (65-105) (65-105) (65-105) Calcium Magnesium Total Bilirubin AST ALT Alkaline Phosphatase C-Reactive Protein Total Protein Albumin Vancomycin Trough Patient hx anesthesia problems: none Family hx anesthesia problems: none Results Review: All pre-operative results and documents have been reviewed as part of the pre-operative evaluation. [facility] Past Medical History Medical History Amputation of one or more toes L foot digits #2 and #3 ([facility], Jun 2024 and Jul 2024) Diabetic foot ulcer DOUG on CPAP Colon polyp Cirrhosis GERD (gastroesophageal reflux disease) Myocardial infarct Diabetes HTN (hypertension) Obesity Social History Social History Smoking packs per day: 1.5 Smoking cigarettes per day: 30.0 Years smoked: 40 Smoking pack-years: 60.00 Smoking status: Light tobacco smoker Tobacco type: cigarettes and smokeless tobacco Second hand tobacco smoke exposure: No Alcohol intake: current Drinks per week: 2 Alcohol use details: current use rare occasional glass of wine, hx of alcohol abuse (5th of Vodka or Rum daily) Substance use: never Substance use type: does not use Other substance usage details: hydrocodone 5-acetaminophen 325 bid to tid Lack of Transportation: No Lack of Food: Never True Current Housing: I Have Housing Concerned About Future Housing: No Difficulty Paying Gas/Electric Bills: No Difficulty Paying for Meds: No Currently Unemployed: No Education: Decline to Answer Difficulty w/ Childcare or Family Care: No Living arrangements: alone Gender identity (if verbalized by the patient): Male Sexual Orientation (if Verbalized by the Patient): Straight or Heterosexual Spiritual care concerns: No Anes - Eval Final PreProcedure Day of Procedure 03/28/25 15:05 Patient weight: overweight Heart: regular rate and rhythm Lungs: clear to auscultation Airway: Mallampati scale class II and class III Neurological: alert and oriented Last oral intake: >/= 8 hours ASA classification: IV Emergent: no Anesthetic plan: proceed Anesthesia type and monitoring: general LMA and standard monitoring Results Review: All pre-operative results and documents have been reviewed as part of the pre-operative evaluation. Informed Consent: The patient's anesthetic plan and its attendant risks and benefits were discussed with the patient/family/POA. Questions were solicited and answers provided to the satisfaction of the patient/family/POA.
--- NOTE | 2025-03-28 15:24 | PM.IMPN ---
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 Continue antibiotics and follow cultures. Patient wishes to be full code. Continue appreciate Orthopedic surgery recommendations and wound care. Leukocytosis is improving, continue to trend. Holding holding in ox aspirin. Holding [employer] Jardiance. Subjective Date/time seen: 03/28/25 15:24 Interval history: No major acute overnight events. Patient has no complaints. Denies fever, pain. Review of Systems Review of Systems: All systems reviewed & are unremarkable except as noted in HPI and below (Subjective) Exam Const: General: comfortable and no acute distress HENMT: Mouth: Yes moist mucous membranes Eyes: Pupils: Equal, round and reactive pupils present Neck: Neck: supple Resp: Effort & Inspection: normal respiratory effort Auscultation: clear to auscultation bilaterally Cardio: Rate: regular rate Rhythm: regular rhythm Extrem: General: no edema Objective Data Vital Signs Vital Signs: Vital Signs - 24 hr 03/27/25 19:38 03/27/25 20:00 03/27/25 20:12 Temperature 97.3 F L Pulse Rate 91 91 Respiratory Rate 20 18 Blood Pressure 137/70 Pulse Oximetry 93 96 Oxygen Delivery Room Air CPAP Fraction of Inspired Oxygen 21 03/27/25 22:19 03/28/25 00:53 03/28/25 05:04 Temperature 97.3 F L 98.1 F Pulse Rate 83 87 90 Respiratory Rate 16 16 Blood Pressure 133/89 142/75 H Pulse Oximetry 97 94 94 Oxygen Delivery Autopap Fraction of Inspired Oxygen 03/28/25 11:23 03/28/25 14:30 Temperature 97.6 F Pulse Rate 88 Respiratory Rate 14 Blood Pressure 129/76 Pulse Oximetry 92 97 Oxygen Delivery Room Air Room Air Fraction of Inspired Oxygen 21 Intake/Output Intake/Output: Intake & Output 03/25/25 03/26/25 03/27/25 03/28/25 23:59 23:59 23:59 23:59 Intake Total 750 3325 1540 Output Total 3060 2825 Balance 750 265 1285 Meds/Results Medications: Active Medications Generic Name Dose Route Start Last Admin Trade Name Freq PRN Reason Stop Dose Admin Acetaminophen 650 mg 03/26/25 18:40 03/27/25 20:22 Acetaminophen 325 Mg Tablet PO 650 mg Q4H PRN Administration Mild Pain (1-3) or Fever Lipase/Protease/Amylase 2 cap 03/27/25 06:00 03/28/25 05:23 Lipase/Amylase/Protease 12,000 Units Cap PO 2 cap Q8HR TORRES Administration Atorvastatin Calcium 40 mg 03/27/25 09:00 03/28/25 08:20 Atorvastatin 40 Mg Tablet PO 40 mg DAILY TORRES Administration Budesonide 3 mg 03/27/25 09:00 03/28/25 08:20 Budesonide 3 Mg Cap.Sr.24h PO 3 mg DAILY TORRES Administration Bupropion HCl 300 mg 03/27/25 09:00 03/28/25 08:20 Bupropion Hcl Sr (12 Hr) 150 Mg Tab PO 300 mg DAILY TORRES Administration Cyclobenzaprine HCl 5 mg 03/27/25 06:00 03/28/25 05:23 Cyclobenzaprine Hcl 5 Mg Tablet PO 5 mg Q8HR TORRES Administration Dextrose 12.5 gm 03/26/25 18:40 Dextrose 50% 25 Gm/50 Ml Syringe IV PUSH PRN PRN Hypoglycemia Protocol Diazepam 5 mg 03/27/25 00:55 03/27/25 20:22 Diazepam (*Crx) 5 Mg Tablet PO 5 mg Q12H PRN Administration Anxiety Doxepin HCl 150 mg 03/27/25 21:00 03/27/25 20:20 Doxepin Hcl 25 Mg Capsule PO 150 mg HS TORRES Administration Duloxetine HCl 30 mg 03/27/25 06:00 03/28/25 05:23 Duloxetine Hcl 30 Mg Capsule.Dr PO 30 mg Q8HR TORRES Administration Empagliflozin 25 mg 03/27/25 09:00 03/27/25 08:37 Empagliflozin 25 Mg Tablet PO 25 mg On Hold: 03/27/25 16:36 DAILY TORRES Administration Enoxaparin Sodium 40 mg 03/27/25 09:00 03/27/25 13:42 Enoxaparin 40 Mg/0.4 Ml Syringe SUB-Q 40 mg On Hold: 03/27/25 16:36 DAILY TORRES Administration Fentanyl Citrate 25 mcg 03/28/25 15:11 Fentanyl Citrate Inj (*Crx) 100 Mcg/2 Ml Vial IV PUSH Q2M PRN Pain Glimepiride 4 mg 03/27/25 09:00 03/28/25 08:20 Glimepiride 2 Mg Tablet PO 4 mg DAILY TORRES Administration Glucagon 1 mg 03/26/25 18:40 Glucagon For Inj 1 Mg Vial IM PRN PRN Hypoglycemia Protocol Glucose 15 gm 03/26/25 18:40 Glucose Oral Gel 15 Gm Of Glucse In 37.5 Gm Tube PO PRN PRN Hypoglycemia Protocol Dextrose 1,000 mls @ 100 mls/hr 03/26/25 18:40 Dextrose 5% 1,000 Ml IVPB PRN PRN Hypoglycemia Protocol Cefepime HCl 2 gm/ Sodium 50 mls @ 100 mls/hr 03/27/25 06:00 03/28/25 05:53 Chloride IVPB Infused Q12H TORRES Infusion Metronidazole 500 mg in 100 mls @ 100 mls/hr 03/26/25 22:00 03/28/25 14:57 Flagyl 500 Mg/Iso Soln 100 Ml IVPB Infused Q8HR TORRES Infusion Vancomycin HCl 1,500 mg in 500 mls @ 250 mls/hr 03/28/25 08:00 03/28/25 10:19 Vancomycin 1,500 Mg/Ns 500 Ml IVPB Infused Q8H TORRES Infusion Lactated Ringer's 1,000 mls @ 30 mls/hr 03/28/25 15:15 Lr - Lactated Ringers Iv IV CONT .Q24H TORRES Lactated Ringer's 1,000 mls @ 30 mls/hr 03/28/25 15:15 Lr - Lactated Ringers Iv IV CONT .Q24H TORRES Insulin Aspart 3 - 6 units 03/27/25 08:00 03/28/25 13:53 Insulin Aspart (*Bkc) 100 Units/Ml SUB-Q Not Given [facility] Protocol Loperamide HCl 2 mg 03/27/25 00:55 Loperamide Hcl 2 Mg Capsule PO Q8H PRN Loose Stool Metoclopramide HCl 10 mg 03/27/25 00:55 Metoclopramide Hcl 10 Mg Tablet PO TID PRN nausea Ondansetron HCl 4 mg 03/26/25 18:40 Ondansetron Inj 4 Mg/2 Ml Vial IV PUSH Q4H PRN Nausea Ondansetron HCl 4 mg 03/28/25 15:11 Ondansetron Inj 4 Mg/2 Ml Vial IV PUSH ONCE PRN Nausea Oxycodone/Acetaminophen 1 tab 03/26/25 21:46 03/28/25 08:21 Oxycodone/Acetaminophen (*Crx) 10-325 Mg Tablet PO 1 tab Q8HR PRN Administration Pain Rated 7-10 Pantoprazole Sodium 40 mg 03/27/25 09:00 03/28/25 08:20 Pantoprazole 40 Mg Tablet PO 40 mg QAM TORRES Administration Quetiapine Fumarate 200 mg 03/27/25 01:00 03/27/25 20:21 Quetiapine Fumarate 100 Mg Tablet PO 200 mg HS TORRES Administration Vitamin D 50 mcg 03/27/25 09:00 03/28/25 08:20 Cholecalciferol (Vitamin D3) 25 Mcg (1,000 Units) Tablet PO 50 mcg DAILY TORRES Administration Radiology Results: ITS Impressions Chest X-Ray 03/26/25 17:47 IMPRESSION: 1: Small patchy opacities in the left lower lung which represents atelectasis and/or airspace disease. Recommend follow-up to resolution. 2. Small left-sided pleural effusion. Shoulder X-Ray 03/26/25 17:48 IMPRESSION: 1. [ No acute bony abnormality identified.] 2. Mild degenerative change in the right acromioclavicular joint. 3.There are a few less than 5 mm radiopaque densities in the subdeltoid bursa which may represent calcium from calcific tendinitis If symptoms persist or worsen consider a short-term follow-up study or MRI imaging for further assessment. Ankle X-Ray 03/26/25 17:50 Impression: No evidence of osteomyelitis Foot X-Ray 03/26/25 17:51 IMPRESSION: 1. Lucencies identified in the distal third of the fifth metatarsal and base of the proximal phalanx of the fifth toe. Differential includes osteopenia, however, osteomyelitis is possible in the appropriate clinical setting. There is adjacent soft tissue swelling. If symptoms persist or worsen, consider an MRI of the right foot with and without contrast for further assessment. Foot MRI 03/27/25 16:45 IMPRESSION: 1. Ulceration at the plantar/lateral aspect of the forefoot immediately deep to a small osseous excrescence at the distal diaphysis of the fifth metatarsal resulting from an old healed fracture deformity, likely representing a pressure erosion resulting from the osseous excrescence. There is marrow edema and enhancement in the region of the fracture deformity and adjacent ulceration without evident cortical erosion on either MRI or prior radiographs and without evident geographic loss of T1 marrow fat signal to more specifically suggest osteomyelitis. Differential would include early osteomyelitis, reactive edema related to adjacent infection or stress reaction resulting from the malunion. Labs Labs: Laboratory Results - last 24 hr 03/27/25 03/27/25 03/28/25 16:43 20:14 06:44 WBC 10.1 H RBC 4.09 L Hgb 12.6 L Hct 37.6 L MCV 91.9 MCH 30.8 MCHC 33.5 RDW 12.5 Plt Count 222 MPV 9.5 Immature Gran % (Auto) 0.9 H Neut % (Auto) 71.8 Lymph % (Auto) 12.9 L [place] % (Auto) 10.3 H Eos % (Auto) 3.2 Baso % (Auto) 0.9 Lymph # (Auto) 1.31 Gage # (Auto) 1.0 H Eos # (Auto) 0.3 Baso # (Auto) 0.1 Abs Immat Gran (auto) 0.09 H Absolute Neuts (auto) 7.3 H Absolute Nucleated RBC 0.000 Nucleated RBC % 0.0 ESR 123 H Sodium 138 Potassium 3.7 Chloride 103 Carbon Dioxide 23 Anion Gap 12 BUN 11 Creatinine 0.72 Estim Creat Clear Calc 99 Estimated GFR > 60 Glucose 113 H POC Capillary Glucose 125 H 167 H Calcium 8.6 Magnesium 2.1 Total Bilirubin 0.7 AST 43 ALT 34 Alkaline Phosphatase 139 H C-Reactive Protein 13.9 H Total Protein 7.9 Albumin 3.7 Vancomycin Trough 9.4 L 03/28/25 03/28/25 03/28/25 07:52 11:55 14:37 WBC RBC Hgb Hct MCV MCH MCHC RDW Plt Count MPV Immature Gran % (Auto) Neut % (Auto) Lymph % (Auto) [place] % (Auto) Eos % (Auto) Baso % (Auto) Lymph # (Auto) [place] # (Auto) Eos # (Auto) Baso # (Auto) Abs Immat Gran (auto) Absolute Neuts (auto) Absolute Nucleated RBC Nucleated RBC % ESR Sodium Potassium Chloride Carbon Dioxide Anion Gap BUN Creatinine Estim Creat Clear Calc Estimated GFR Glucose POC Capillary Glucose 121 H 103 81 Calcium Magnesium Total Bilirubin AST ALT Alkaline Phosphatase C-Reactive Protein Total Protein Albumin Vancomycin Trough
[2025-03-28] MEDS: LACTATED RINGERS 1,000 ML 30 ML IV CONT (15:29)
--- NOTE | 2025-03-28 16:39 | W.PM.PROC2 ---
Procedure Note - Detailed Date of Procedure 03/28/25 Pre-op Diagnosis Cellulitis failed PO abx; mult falls; R shoulder p Post-op Diagnosis Other (Right diabetic foot ulcer, 5th metatarsal exostosis) Procedure Performed Partial excision right 5th metatarsal, excisional debridement of right diabetic foot ulcer including skin, subcutaneous tissue and muscle. Surgeon Fausto Carroll MD Camera Prototyping Engineer 1st care team assistant Anesthesia General Indications 60-year-old with diabetes and peripheral neuropathy who was admitted with a right diabetic foot ulcer with foot infection. MRI shows infection of the surrounding tissue and changes of the 5th metatarsal. There is also bony prominence and exostosis of the 5th metatarsal causing soft tissue pressure and ulceration. Patient presents for operative treatment Findings Extensive callus on the plantar lateral aspect of the right foot involving skin, subcutaneous tissue and muscle. Large exostosis from the lateral and plantar aspect of the 5th metatarsal head. Description of Procedure Patient identified in the preoperative holding. Informed consent given. Operative extremity marked. Patient received intravenous antibiotics. Patient brought to the operating room where underwent general anesthetic by anesthesia team. Positioned supine on operating room table. Time-out performed confirming the patient, site of the surgery and the plan. Right foot prepped and draped in usual sterile surgical fashion using a Betadine prep solution. Esmarch used to exsanguinate the foot and secured at the ankle as a tourniquet. 15 blade knife used to debride the diabetic foot ulcer. Skin, subcutaneous tissue and muscle sharply debrided, removed and passed off the table. Ulcer measured 2 x 2 cm at the end. Debridement proceeded down to viable tissue. Bleeding points coagulated with electrocautery. A rongeur used to remove any large devitalized portions of tissue of the subcutaneous tissue and muscle and passed off. Wound irrigated with antibiotic saline and closed with 0 Prolene interrupted suture. There were 2 areas of fluctuance on the plantar aspect of the foot in the arch. These were opened with longitudinal incisions using a 15 blade knife through the skin and subcutaneous tissue. Minimal fluid was noted and evacuated. Wounds were irrigated with antibiotic saline and skin closed with 3-0 nylon interrupted suture. 5th metatarsal then addressed. Longitudinal incision made over the lateral aspect of the distal metatarsal with a 15 blade knife. Hemostasis controlled electrocautery. Dissection carried through the fascia and the soft tissue which allowed exposure of the lateral and plantar aspect of the distal 5th metatarsal. Large plantar exostosis noted. This was removed with the osteotome and rongeur. The bony prominence on the lateral aspect was also removed with a osteotome and rongeur. Wound irrigated and the fascia then repaired with 00 Vicryl interrupted suture. Skin repaired with 0 Prolene interrupted suture. Sterile dressing applied. The patient was then woken from anesthesia, extubated and taken to the recovery room in stable condition. All sponge, needle, instrument counts were correct at the end of the case. Implants None Estimated Blood Loss 5 Tourniquet Time Total Tourniquet Time: 30 Urine Output 850 Drains No Packing No Pathology None sent Complications None Condition Stable Disposition PACU [facility] Billing Surgery - Charge Forward: Surgery Billing ([id number], [id number])
[2025-03-28] MEDS: DEXTROSE 5% 1,000 ML 1,000 ML 100 ML IVPB (18:29)
--- NOTE | 2025-03-28 19:56 | PC.NURSE ---
This RN received pt back from PACU approx 1830 with glucose of 75 and just starting on clears. Initiated D5W. Informed charge and night RN about cefipime due at 1800. Allowing D5W to infuse first prior to hanging cefipime. Pt just starting with clears so held sennakot due at 181. Night RN states okay with giving those meds/calling pharmacy to retime cefipime.
[2025-03-28] MEDS: SENNA/DOCUSATE SODIUM TABLET 2 TAB PO (20:54)
[2025-03-28] MEDS: DOXEPIN HCL 25 MG CAPSULE 150 MG PO (20:55)
[2025-03-29] MEDS: VANCOMYCIN 1,500 MG/NS 500 ML 1,500 MG/500 ML BAG 250 MG IVPB ×4 (00:17→23:25)
[2025-03-29 03:58] VITALS: BP 110/46; PULSE 91; RESP 16; TEMP 36.9; O2SAT 93
[2025-03-29] MEDS: oxyCODONE/ACETAMINOPHEN (*CRX) 10-325 MG TABLET 1 TAB PO ×2 (05:35→21:22)
[2025-03-29] MEDS: LIPASE/AMYLASE/PROTEASE 12,000 UNITS CAP 2 CAP PO ×3 (05:35→21:20)
[2025-03-29] MEDS: CYCLOBENZAPRINE HCL 5 MG TABLET PO ×3 (05:35→21:21)
[2025-03-29] MEDS: metroNIDAZOLE 500 MG/ISO 100ML 500 MG/100 ML BAG 100 MG IVPB ×3 (05:35→21:24)
[2025-03-29 07:18] LABS: Hematocrit 37.8 % (42.0-52.0); Hemoglobin 12.7 g/dL (14.0-18.0); Immature Granulocyte Percent A 1.2 % (0-0.5); Lymphocytes Absolute Auto 1.43 K/mm3 (0.9-3.2); Mean Corpuscular HGB Conc 33.6 g/dl (32-36); Mean Corpuscular Hemoglobin 30.7 pg (26-34); Mean Corpuscular Volume 91.3 fl (80-100); Nucleated Red Blood Cells Absolute Auto 0.000 K/mm3 (0.0-0.012); Nucleated Red Blood Cells Perc 0.0 % (0.0-0.2); Platelet Count Result 224 k/mm3 (150-375); Red Blood Count 4.14 M/mm3 (4.6-6.20); White Blood Count 9.4 K/mm3 (4.5-10.0)
[2025-03-29 07:43] LABS: Alanine Aminotransferase 29 U/L (6-50); Albumin Level 3.5 g/dL (3.5-5.1); Alkaline Phosphatase 131 U/L (38-126); Anion Gap 9 mmol/L (4-12); Aspartate Amino Transferase 36 U/L (17-59); Bilirubin,Total 0.6 mg/dL (0.2-1.3); Blood Urea Nitrogen 9 mg/dL (9-20); CRP 6.6 mg/dL (<1.0); Calcium 8.3 mg/dL (8.4-10.2); Carbon Dioxide 23 mmol/L (22-30); Chloride 102 mmol/L (98-107); Estimated CRCL calculation 107 ml/min; Estimated Glomerular Filt Rate > 60; Glucose 106 mg/dL (65-110); Magnesium 1.9 mg/dL (1.6-2.3); Potassium 3.8 mmol/L (3.4-5.0); Sodium 134 mmol/L (137-145); Total Protein 7.4 g/dL (6.3-8.2)
[2025-03-29 07:58] VITALS: BP 144/76; PULSE 88; RESP 18; TEMP 36.6; O2SAT 97
[2025-03-29] MEDS: diazePAM (*CRX) 5 MG TABLET PO ×2 (08:55→21:23)
[2025-03-29] MEDS: ACETAMINOPHEN 325 MG TABLET 650 MG PO ×2 (08:57→17:04)
[2025-03-29] MEDS: ENOXAPARIN 40 MG/0.4 ML SYRINGE SUB-Q (09:01)
[2025-03-29] MEDS: EMPAGLIFLOZIN 25 MG TABLET PO (09:02)
[2025-03-29] MEDS: PANTOPRAZOLE 40 MG TABLET PO (09:03)
[2025-03-29] MEDS: ATORVASTATIN 40 MG TABLET PO (09:03)
[2025-03-29] MEDS: BUDESONIDE 3 MG CAP.SR.24H PO (09:03)
[2025-03-29] MEDS: CHOLECALCIFEROL (VITAMIN D3) 25 MCG (1,000 UNITS) TABLET 50 MCG PO (09:04)
[2025-03-29] MEDS: GLIMEPIRIDE 2 MG TABLET 4 MG PO (09:04)
[2025-03-29] MEDS: SENNA/DOCUSATE SODIUM TABLET 2 TAB PO ×2 (09:04→17:03)
[2025-03-29] MEDS: buPROPion HCL SR (12 HR) 150 MG TAB 300 MG PO (09:04)
--- NOTE | 2025-03-29 09:31 | PM.PNORT ---
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 Operative findings and treatment reviewed with the patient. Dressing change today. Start daily dressing changes. May shower and wash. Empiric IV antibiotics. Awaiting culture and Gram stain results. Disposition home when medically stable. Follow-up in [facility]. <Fausto Carroll MD - Last Filed: 03/29/25 13:14> Subjective Subjective Date/Time Seen: 03/29/25 09:31 <ARPITA Clay - Last Filed: 03/29/25 13:18> Post Op day: 1 <ARPITA Clay - Last Filed: 03/29/25 13:18> 1 <Fausto Carroll MD - Last Filed: 03/29/25 13:14> Principal diagnosis: Right diabetic foot ulcer <Fausto Carroll MD - Last Filed: 03/29/25 13:14> Interval history: POD #1: Partial excision right 5th metatarsal, excisional debridement of right diabetic foot ulcer including skin, subcutaneous tissue and muscle. Patient alert, sitting on the side of the bed. No complaints of pain. <ARPITA Clay - Last Filed: 03/29/25 13:18> Patient resting comfortably. Awake and alert. Oriented to person, place and time. Complains of minimal pain right foot. <Fausto Carroll MD - Last Filed: 03/29/25 13:14> Review of Systems Review of Systems: All systems reviewed & are unremarkable except as noted in HPI and below <ARPITA Clay - Last Filed: 03/29/25 13:18> Exam Const: General: comfortable and no acute distress <Fausto Carroll MD - Last Filed: 03/29/25 13:14> HENMT: Mouth: Yes moist mucous membranes <Fausto Carroll MD - Last Filed: 03/29/25 13:14> Eyes: General: appearance normal, both eyes and all related structures <Fausto Carroll MD - Last Filed: 03/29/25 13:14> Neck: Neck: supple and no JVD <Fausto Carroll MD - Last Filed: 03/29/25 13:14> Resp: Effort & Inspection: normal respiratory effort <Fausto Carroll MD - Last Filed: 03/29/25 13:14> Cardio: Rate: regular rate <Fausto Carroll MD - Last Filed: 03/29/25 13:14> Rhythm: regular rhythm <Fausto Carroll MD - Last Filed: 03/29/25 13:14> Neuro: Cognition (Neuro): normal cognition <Fausto Carroll MD - Last Filed: 03/29/25 13:14> Speech: normal speech <Fausto Carroll MD - Last Filed: 03/29/25 13:14> Extrem: Right lower extremity: hip/thigh Details: normal to inspection and normal ROM; no tenderness and no swelling, knee Details: normal to inspection and normal ROM; no tenderness and no swelling, lower leg Details: normal to inspection, ankle (erythema ) Details: tenderness, swelling and other (callus/ulcer on the plantar aspect of the 5th met head ); no lacerations and foot Details: abnormal to inspection Details: erythematous, toes with normal ROM, vascular exam Details: dorsalis pedis pulse present and motor-sensory exam Details: light-touch abnormal <Fausto Carroll MD - Last Filed: 03/29/25 13:14> Left lower extremity: foot Details: abnormal to inspection Details: a deformity Location: of the great toe and of the hallux valgus; not of the 2nd digit (amp ) and not of the 3rd digit (amp ) <Fausto Carroll MD - Last Filed: 03/29/25 13:14> Other: Dressing changed right foot. Lateral and plantar incisions clean dry and intact. Swelling improved. Erythema overall improved. No active drainage. Good capillary refill in the toes. Negative Homans. <Fausto Carroll MD - Last Filed: 03/29/25 13:14> Psych: Mental Status: mental status grossly normal <Fausto Carroll MD - Last Filed: 03/29/25 13:14> Affect: normal affect <Fausto Carroll MD - Last Filed: 03/29/25 13:14> Objective Data Vital Signs Vital Signs: Vital Signs - 24 hr 03/28/25 11:23 03/28/25 14:30 03/28/25 16:29 Temperature 36.4 C 36.1 C L Pulse Rate 88 82 Respiratory Rate 14 15 Blood Pressure 129/76 100/64 Pulse Oximetry 92 97 97 Oxygen Delivery Room Air Room Air Simple Face Mask Oxygen Flow Rate 8 Fraction of Inspired Oxygen 21 03/28/25 16:45 03/28/25 17:00 03/28/25 17:10 Temperature Pulse Rate 82 84 Respiratory Rate 15 15 Blood Pressure 124/74 136/76 Pulse Oximetry 99 99 96 Oxygen Delivery Simple Face Mask Simple Face Mask Room Air Oxygen Flow Rate 8 8 Fraction of Inspired Oxygen 03/28/25 17:15 03/28/25 17:20 03/28/25 17:30 Temperature Pulse Rate 87 84 Respiratory Rate 13 16 Blood Pressure 133/82 132/81 Pulse Oximetry 94 93 96 Oxygen Delivery Room Air Nasal Cannula Nasal Cannula Oxygen Flow Rate 2 2 Fraction of Inspired Oxygen 03/28/25 17:45 03/28/25 18:00 03/28/25 18:08 Temperature 36.2 C L Pulse Rate 85 86 85 Respiratory Rate 14 17 17 Blood Pressure 138/77 132/82 144/75 H Pulse Oximetry 96 96 96 Oxygen Delivery Nasal Cannula Nasal Cannula Nasal Cannula Oxygen Flow Rate 2 2 2 Fraction of Inspired Oxygen 03/28/25 18:13 03/28/25 18:58 03/28/25 20:00 Temperature 35.9 C L Pulse Rate 85 85 Respiratory Rate 18 12 Blood Pressure 132/78 143/78 H Pulse Oximetry 99 98 Oxygen Delivery Room Air Oxygen Flow Rate Fraction of Inspired Oxygen 03/28/25 20:10 03/28/25 22:00 03/28/25 23:58 Temperature 36.8 C 36.7 C Pulse Rate 88 94 Respiratory Rate 20 20 Blood Pressure 142/75 H 129/89 Pulse Oximetry 99 99 97 Oxygen Delivery Room Air Oxygen Flow Rate Fraction of Inspired Oxygen 03/29/25 03:58 03/29/25 07:58 Temperature 36.9 C 36.6 C Pulse Rate 91 88 Respiratory Rate 16 18 Blood Pressure 110/46 L 144/76 H Pulse Oximetry 93 97 Oxygen Delivery Oxygen Flow Rate Fraction of Inspired Oxygen <ARPITA Clay - Last Filed: 03/29/25 13:18> Intake/Output Intake/Output: Intake & Output 03/26/25 03/27/25 03/28/25 03/29/25 23:59 23:59 23:59 23:59 Intake Total 750 3325 2471.7 1100 Output Total 3060 4175 2475 Balance 750 265 -1703.3 -1375 <ARPITA Clay - Last Filed: 03/29/25 13:18> Meds/Results Medications: Active Medications Generic Name Dose Route Start Last Admin Trade Name Freq PRN Reason Stop Dose Admin Acetaminophen 650 mg 03/26/25 18:40 03/29/25 08:57 Acetaminophen 325 Mg Tablet PO 650 mg Q4H PRN Administration Mild Pain (1-3) or Fever Lipase/Protease/Amylase 2 cap 03/27/25 06:00 03/29/25 05:35 Lipase/Amylase/Protease 12,000 Units Cap PO 2 cap Q8HR TORRES Administration Atorvastatin Calcium 40 mg 03/27/25 09:00 03/29/25 09:03 Atorvastatin 40 Mg Tablet PO 40 mg DAILY TORRES Administration Budesonide 3 mg 03/27/25 09:00 03/29/25 09:03 Budesonide 3 Mg Cap.Sr.24h PO 3 mg DAILY TORRES Administration Bupropion HCl 300 mg 03/27/25 09:00 03/29/25 09:04 Bupropion Hcl Sr (12 Hr) 150 Mg Tab PO 300 mg DAILY TORRES Administration Cyclobenzaprine HCl 5 mg 03/27/25 06:00 03/29/25 05:35 Cyclobenzaprine Hcl 5 Mg Tablet PO 5 mg Q8HR TORRES Administration Dextrose 12.5 gm 03/26/25 18:40 Dextrose 50% 25 Gm/50 Ml Syringe IV PUSH PRN PRN Hypoglycemia Protocol Diazepam 5 mg 03/27/25 00:55 03/29/25 08:55 Diazepam (*Crx) 5 Mg Tablet PO 5 mg Q12H PRN Administration Anxiety Doxepin HCl 150 mg 03/27/25 21:00 03/28/25 20:55 Doxepin Hcl 25 Mg Capsule PO 150 mg HS TORRES Administration Duloxetine HCl 30 mg 03/27/25 06:00 03/29/25 05:35 Duloxetine Hcl 30 Mg Capsule.Dr PO 30 mg Q8HR TORRES Administration Empagliflozin 25 mg 03/27/25 09:00 03/29/25 09:02 Empagliflozin 25 Mg Tablet PO 25 mg DAILY TORRES Administration Enoxaparin Sodium 40 mg 03/27/25 09:00 03/29/25 09:01 Enoxaparin 40 Mg/0.4 Ml Syringe SUB-Q 40 mg DAILY TORRES Administration Glimepiride 4 mg 03/27/25 09:00 03/29/25 09:04 Glimepiride 2 Mg Tablet PO 4 mg DAILY TORRES Administration Glucagon 1 mg 03/26/25 18:40 Glucagon For Inj 1 Mg Vial IM PRN PRN Hypoglycemia Protocol Glucose 15 gm 03/26/25 18:40 Glucose Oral Gel 15 Gm Of Glucse In 37.5 Gm Tube PO PRN PRN Hypoglycemia Protocol Dextrose 1,000 mls @ 100 mls/hr 03/26/25 18:40 03/28/25 21:00 Dextrose 5% 1,000 Ml IVPB 0 mls/hr PRN PRN Infusion Hypoglycemia Protocol Metronidazole 500 mg in 100 mls @ 100 mls/hr 03/26/25 22:00 03/29/25 06:35 Flagyl 500 Mg/Iso Soln 100 Ml IVPB Infused Q8HR TORRES Infusion Vancomycin HCl 1,500 mg in 500 mls @ 250 mls/hr 03/28/25 08:00 03/29/25 08:59 Vancomycin 1,500 Mg/Ns 500 Ml IVPB 250 mls/hr Q8H TORRES Administration Cefepime HCl 2 gm/ Sodium 50 mls @ 100 mls/hr 03/28/25 21:00 03/28/25 21:25 Chloride IVPB Infused Q12H TORRES Infusion Insulin Aspart 3 - 6 units 03/27/25 08:00 03/29/25 08:15 Insulin Aspart (*Bkc) 100 Units/Ml SUB-Q Not Given TIDWM [facility] Protocol Loperamide HCl 2 mg 03/27/25 00:55 Loperamide Hcl 2 Mg Capsule PO Q8H PRN Loose Stool Metoclopramide HCl 10 mg 03/27/25 00:55 Metoclopramide Hcl 10 Mg Tablet PO TID PRN nausea Ondansetron HCl 4 mg 03/26/25 18:40 Ondansetron Inj 4 Mg/2 Ml Vial IV PUSH Q4H PRN Nausea Oxycodone/Acetaminophen 1 tab 03/26/25 21:46 03/29/25 05:35 Oxycodone/Acetaminophen (*Crx) 10-325 Mg Tablet PO 1 tab Q8HR PRN Administration Pain Rated 7-10 Pantoprazole Sodium 40 mg 03/27/25 09:00 03/29/25 09:03 Pantoprazole 40 Mg Tablet PO 40 mg QAM TORRES Administration Quetiapine Fumarate 200 mg 03/27/25 01:00 03/28/25 20:54 Quetiapine Fumarate 100 Mg Tablet PO 200 mg HS TORRES Administration Senna/Docusate Sodium 2 tab 03/28/25 18:13 03/29/25 09:04 Senna/Docusate Sodium Tablet PO 2 tab BID TORRES Administration Vitamin D 50 mcg 03/27/25 09:00 03/29/25 09:04 Cholecalciferol (Vitamin D3) 25 Mcg (1,000 Units) Tablet PO 50 mcg DAILY TORRES Administration <ARPITA Clay - Last Filed: 03/29/25 13:18> Radiology Results: ITS Impressions Chest X-Ray 03/26/25 17:47 IMPRESSION: 1: Small patchy opacities in the left lower lung which represents atelectasis and/or airspace disease. Recommend follow-up to resolution. 2. Small left-sided pleural effusion. Shoulder X-Ray 03/26/25 17:48 IMPRESSION: 1. [ No acute bony abnormality identified.] 2. Mild degenerative change in the right acromioclavicular joint. 3.There are a few less than 5 mm radiopaque densities in the subdeltoid bursa which may represent calcium from calcific tendinitis If symptoms persist or worsen consider a short-term follow-up study or MRI imaging for further assessment. Ankle X-Ray 03/26/25 17:50 Impression: No evidence of osteomyelitis Foot X-Ray 03/26/25 17:51 IMPRESSION: 1. Lucencies identified in the distal third of the fifth metatarsal and base of the proximal phalanx of the fifth toe. Differential includes osteopenia, however, osteomyelitis is possible in the appropriate clinical setting. There is adjacent soft tissue swelling. If symptoms persist or worsen, consider an MRI of the right foot with and without contrast for further assessment. Foot MRI 03/27/25 16:45 IMPRESSION: 1. Ulceration at the plantar/lateral aspect of the forefoot immediately deep to a small osseous excrescence at the distal diaphysis of the fifth metatarsal resulting from an old healed fracture deformity, likely representing a pressure erosion resulting from the osseous excrescence. There is marrow edema and enhancement in the region of the fracture deformity and adjacent ulceration without evident cortical erosion on either MRI or prior radiographs and without evident geographic loss of T1 marrow fat signal to more specifically suggest osteomyelitis. Differential would include early osteomyelitis, reactive edema related to adjacent infection or stress reaction resulting from the malunion. <ARPITA Clay - Last Filed: 03/29/25 13:18> Labs Labs: Laboratory Results - last 24 hr 03/28/25 03/28/25 03/28/25 11:55 14:37 16:33 WBC RBC Hgb Hct MCV MCH MCHC RDW Plt Count MPV Immature Gran % (Auto) Neut % (Auto) Lymph % (Auto) [place] % (Auto) Eos % (Auto) Baso % (Auto) Lymph # (Auto) [place] # (Auto) Eos # (Auto) Baso # (Auto) Abs Immat Gran (auto) Absolute Neuts (auto) Absolute Nucleated RBC Nucleated RBC % ESR Sodium Potassium Chloride Carbon Dioxide Anion Gap BUN Creatinine Estim Creat Clear Calc Estimated GFR Glucose POC Capillary Glucose 103 81 75 Calcium Magnesium Total Bilirubin AST ALT Alkaline Phosphatase C-Reactive Protein Total Protein Albumin Vancomycin Trough 03/28/25 03/29/25 03/29/25 21:19 06:59 08:01 WBC 9.4 RBC 4.14 L Hgb 12.7 L Hct 37.8 L MCV 91.3 MCH 30.7 MCHC 33.6 RDW 12.8 Plt Count 224 MPV 9.5 Immature Gran % (Auto) 1.2 H Neut % (Auto) 67.4 Lymph % (Auto) 15.2 L [place] % (Auto) 12.4 H Eos % (Auto) 2.8 Baso % (Auto) 1.0 Lymph # (Auto) 1.43 [place] # (Auto) 1.2 H Eos # (Auto) 0.3 Baso # (Auto) 0.1 Abs Immat Gran (auto) 0.11 H Absolute Neuts (auto) 6.4 Absolute Nucleated RBC 0.000 Nucleated RBC % 0.0 ESR 118 H Sodium 134 L Potassium 3.8 Chloride 102 Carbon Dioxide 23 Anion Gap 9 BUN 9 Creatinine 0.66 L Estim Creat Clear Calc 107 Estimated GFR > 60 Glucose 106 POC Capillary Glucose 151 H 99 Calcium 8.3 L Magnesium 1.9 Total Bilirubin 0.6 AST 36 ALT 29 Alkaline Phosphatase 131 H C-Reactive Protein 6.6 H Total Protein 7.4 Albumin 3.5 Vancomycin Trough 16.1 <Kisha Bland, [employer]ERK - Last Filed: 03/29/25 13:18>
[2025-03-29] MEDS: CEFEPIME 2 GM in SODIUM CHLORIDE 0.9% IV 50 ML 100 ML IVPB ×2 (11:28→22:32)
[2025-03-29 14:00] VITALS: BP 146/81; PULSE 80; RESP 79; TEMP 36.3; O2SAT 99
--- NOTE | 2025-03-29 15:32 | P.PNIM_ITS ---
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 He was in a dark ro om because his daughter was trying to save electricity and have the lights off. Prior to the fall he had right foot redness starting already for 2 weeks. Cellulitis and right foot ulcer due to diabetes. Status post partial excision right 5th metatarsal, excisional debridement of right diabetic foot ulcer including skin subcutaneous tissue and muscle on 03/28/2025. Doing well postop. Continue cefepime vancomycin and metronidazole. Awaiting wound culture to tailor antibiotics. Previous to admission he uses a cane to ambulate, he has had falls. Consult PT/OT for discharge planning. 03/26/2025 blood cultures no growth today, pending. Continue daily dressing changes per Orthopedic surgery. Leukocytosis resolved. Blood sugars at goal. Continue Accu-Cheks a.c. HS, continue current insulin regimen, continue Jardiance. Patient wishes to be full code. Previous to admission he lives at home with his daughter. Saline lock IV. Diabetic diet. PT/OT evaluations. Lovenox 40 mg subQ q.day. Subjective Date/time seen: 03/29/25 15:32 Interval history: No major acute overnight events. No complications since operation Review of Systems Review of Systems: All systems reviewed & are unremarkable except as noted in HPI and below (Subjective) Exam Const: General: comfortable and no acute distress HENMT: Mouth: Yes moist mucous membranes Eyes: Pupils: Equal, round and reactive pupils present Neck: Neck: supple Resp: Effort & Inspection: normal respiratory effort Auscultation: clear to auscultation bilaterally Cardio: Rate: regular rate Rhythm: regular rhythm GI: Inspection: non-distended GI Palp: Yes Soft to palpation Extrem: General: no edema Other: Right foot dressing intact with no saturation, no drainage. Objective Data Vital Signs Vital Signs: Vital Signs - 24 hr 03/28/25 16:29 03/28/25 16:45 03/28/25 17:00 Temperature 97.0 F L Pulse Rate 82 82 84 Respiratory Rate 15 15 15 Blood Pressure 100/64 124/74 136/76 Pulse Oximetry 97 99 99 Oxygen Delivery Simple Face Mask Simple Face Mask Simple Face Mask Oxygen Flow Rate 8 8 8 03/28/25 17:10 03/28/25 17:15 03/28/25 17:20 Temperature Pulse Rate 87 Respiratory Rate 13 Blood Pressure 133/82 Pulse Oximetry 96 94 93 Oxygen Delivery Room Air Room Air Nasal Cannula Oxygen Flow Rate 2 03/28/25 17:30 03/28/25 17:45 03/28/25 18:00 Temperature 97.2 F L Pulse Rate 84 85 86 Respiratory Rate 16 14 17 Blood Pressure 132/81 138/77 132/82 Pulse Oximetry 96 96 96 Oxygen Delivery Nasal Cannula Nasal Cannula Nasal Cannula Oxygen Flow Rate 2 2 2 03/28/25 18:08 03/28/25 18:13 03/28/25 18:58 Temperature 96.7 F L Pulse Rate 85 85 85 Respiratory Rate 17 18 12 Blood Pressure 144/75 H 132/78 143/78 H Pulse Oximetry 96 99 98 Oxygen Delivery Nasal Cannula Oxygen Flow Rate 2 03/28/25 20:00 03/28/25 20:10 03/28/25 22:00 Temperature 98.2 F Pulse Rate 88 Respiratory Rate 20 Blood Pressure 142/75 H Pulse Oximetry 99 99 Oxygen Delivery Room Air Room Air Oxygen Flow Rate 03/28/25 23:58 03/29/25 03:58 03/29/25 07:58 Temperature 98.0 F 98.5 F 97.9 F Pulse Rate 94 91 88 Respiratory Rate 20 16 18 Blood Pressure 129/89 110/46 L 144/76 H Pulse Oximetry 97 93 97 Oxygen Delivery Oxygen Flow Rate Intake/Output Intake/Output: Intake & Output 03/26/25 03/27/25 03/28/25 03/29/25 23:59 23:59 23:59 23:59 Intake Total 750 3325 2471.7 1750 Output Total 3060 4175 2475 Balance 750 265 -1703.3 -725 Meds/Results Medications: Active Medications Generic Name Dose Route Start Last Admin Trade Name Freq PRN Reason Stop Dose Admin Acetaminophen 650 mg 03/26/25 18:40 03/29/25 08:57 Acetaminophen 325 Mg Tablet PO 650 mg Q4H PRN Administration Mild Pain (1-3) or Fever Lipase/Protease/Amylase 2 cap 03/27/25 06:00 03/29/25 13:18 Lipase/Amylase/Protease 12,000 Units Cap PO 2 cap Q8HR TORRES Administration Atorvastatin Calcium 40 mg 03/27/25 09:00 03/29/25 09:03 Atorvastatin 40 Mg Tablet PO 40 mg DAILY TORRES Administration Budesonide 3 mg 03/27/25 09:00 03/29/25 09:03 Budesonide 3 Mg Cap.Sr.24h PO 3 mg DAILY TORRES Administration Bupropion HCl 300 mg 03/27/25 09:00 03/29/25 09:04 Bupropion Hcl Sr (12 Hr) 150 Mg Tab PO 300 mg DAILY TORRES Administration Cyclobenzaprine HCl 5 mg 03/27/25 06:00 03/29/25 13:18 Cyclobenzaprine Hcl 5 Mg Tablet PO 5 mg Q8HR TORRES Administration Dextrose 12.5 gm 03/26/25 18:40 Dextrose 50% 25 Gm/50 Ml Syringe IV PUSH PRN PRN Hypoglycemia Protocol Diazepam 5 mg 03/27/25 00:55 03/29/25 08:55 Diazepam (*Crx) 5 Mg Tablet PO 5 mg Q12H PRN Administration Anxiety Doxepin HCl 150 mg 03/27/25 21:00 03/28/25 20:55 Doxepin Hcl 25 Mg Capsule PO 150 mg HS TORRES Administration Duloxetine HCl 30 mg 03/27/25 06:00 03/29/25 13:18 Duloxetine Hcl 30 Mg Capsule.Dr PO 30 mg Q8HR TORRES Administration Empagliflozin 25 mg 03/27/25 09:00 03/29/25 09:02 Empagliflozin 25 Mg Tablet PO 25 mg DAILY TORRES Administration Enoxaparin Sodium 40 mg 03/27/25 09:00 03/29/25 09:01 Enoxaparin 40 Mg/0.4 Ml Syringe SUB-Q 40 mg DAILY TORRES Administration Glimepiride 4 mg 03/27/25 09:00 03/29/25 09:04 Glimepiride 2 Mg Tablet PO 4 mg DAILY TORRES Administration Glucagon 1 mg 03/26/25 18:40 Glucagon For Inj 1 Mg Vial IM PRN PRN Hypoglycemia Protocol Glucose 15 gm 03/26/25 18:40 Glucose Oral Gel 15 Gm Of Glucse In 37.5 Gm Tube PO PRN PRN Hypoglycemia Protocol Dextrose 1,000 mls @ 100 mls/hr 03/26/25 18:40 03/28/25 21:00 Dextrose 5% 1,000 Ml IVPB 0 mls/hr PRN PRN Infusion Hypoglycemia Protocol Metronidazole 500 mg in 100 mls @ 100 mls/hr 03/26/25 22:00 03/29/25 14:19 Flagyl 500 Mg/Iso Soln 100 Ml IVPB Infused Q8HR TORRES Infusion Vancomycin HCl 1,500 mg in 500 mls @ 250 mls/hr 03/28/25 08:00 03/29/25 15:16 Vancomycin 1,500 Mg/Ns 500 Ml IVPB 250 mls/hr Q8H TORRES Administration Cefepime HCl 2 gm/ Sodium 50 mls @ 100 mls/hr 03/29/25 11:00 03/29/25 11:58 Chloride IVPB Infused Q12H TORRES Infusion Insulin Aspart 3 - 6 units 03/27/25 08:00 03/29/25 12:14 Insulin Aspart (*Bkc) 100 Units/Ml SUB-Q Not Given [facility] Protocol Loperamide HCl 2 mg 03/27/25 00:55 Loperamide Hcl 2 Mg Capsule PO Q8H PRN Loose Stool Metoclopramide HCl 10 mg 03/27/25 00:55 Metoclopramide Hcl 10 Mg Tablet PO TID PRN nausea Ondansetron HCl 4 mg 03/26/25 18:40 Ondansetron Inj 4 Mg/2 Ml Vial IV PUSH Q4H PRN Nausea Oxycodone/Acetaminophen 1 tab 03/26/25 21:46 03/29/25 05:35 Oxycodone/Acetaminophen (*Crx) 10-325 Mg Tablet PO 1 tab Q8HR PRN Administration Pain Rated 7-10 Pantoprazole Sodium 40 mg 03/27/25 09:00 03/29/25 09:03 Pantoprazole 40 Mg Tablet PO 40 mg QAM TORRES Administration Quetiapine Fumarate 200 mg 03/27/25 01:00 03/28/25 20:54 Quetiapine Fumarate 100 Mg Tablet PO 200 mg HS TORRES Administration Senna/Docusate Sodium 2 tab 03/28/25 18:13 03/29/25 09:04 Senna/Docusate Sodium Tablet PO 2 tab BID TORRES Administration Vitamin D 50 mcg 03/27/25 09:00 03/29/25 09:04 Cholecalciferol (Vitamin D3) 25 Mcg (1,000 Units) Tablet PO 50 mcg DAILY TORRES Administration Radiology Results: ITS Impressions Chest X-Ray 03/26/25 17:47 IMPRESSION: 1: Small patchy opacities in the left lower lung which represents atelectasis and/or airspace disease. Recommend follow-up to resolution. 2. Small left-sided pleural effusion. Shoulder X-Ray 03/26/25 17:48 IMPRESSION: 1. [ No acute bony abnormality identified.] 2. Mild degenerative change in the right acromioclavicular joint. 3.There are a few less than 5 mm radiopaque densities in the subdeltoid bursa which may represent calcium from calcific tendinitis If symptoms persist or worsen consider a short-term follow-up study or MRI imaging for further assessment. Ankle X-Ray 03/26/25 17:50 Impression: No evidence of osteomyelitis Foot X-Ray 03/26/25 17:51 IMPRESSION: 1. Lucencies identified in the distal third of the fifth metatarsal and base of the proximal phalanx of the fifth toe. Differential includes osteopenia, however, osteomyelitis is possible in the appropriate clinical setting. There is adjacent soft tissue swelling. If symptoms persist or worsen, consider an MRI of the right foot with and without contrast for further assessment. Foot MRI 03/27/25 16:45 IMPRESSION: 1. Ulceration at the plantar/lateral aspect of the forefoot immediately deep to a small osseous excrescence at the distal diaphysis of the fifth metatarsal resulting from an old healed fracture deformity, likely representing a pressure erosion resulting from the osseous excrescence. There is marrow edema and enhancement in the region of the fracture deformity and adjacent ulceration wi thout evident cortical erosion on either MRI or prior radiographs and without evident geographic loss of T1 marrow fat signal to more specifically suggest osteomyelitis. Differential would include early osteomyelitis, reactive edema related to adjacent infection or stress reaction resulting from the malunion. Labs Labs: Laboratory Results - last 24 hr 03/28/25 03/28/25 03/29/25 16:33 21:19 06:59 WBC 9.4 RBC 4.14 L Hgb 12.7 L Hct 37.8 L MCV 91.3 MCH 30.7 MCHC 33.6 RDW 12.8 Plt Count 224 MPV 9.5 Immature Gran % (Auto) 1.2 H Neut % (Auto) 67.4 Lymph % (Auto) 15.2 L Guthrie % (Auto) 12.4 H Eos % (Auto) 2.8 Baso % (Auto) 1.0 Lymph # (Auto) 1.43 Guthrie # (Auto) 1.2 H Eos # (Auto) 0.3 Baso # (Auto) 0.1 Abs Immat Gran (auto) 0.11 H Absolute Neuts (auto) 6.4 Absolute Nucleated RBC 0.000 Nucleated RBC % 0.0 ESR 118 H Sodium 134 L Potassium 3.8 Chloride 102 Carbon Dioxide 23 Anion Gap 9 BUN 9 Creatinine 0.66 L Estim Creat Clear Calc 107 Estimated GFR > 60 Glucose 106 POC Capillary Glucose 75 151 H Calcium 8.3 L Magnesium 1.9 Total Bilirubin 0.6 AST 36 ALT 29 Alkaline Phosphatase 131 H C-Reactive Protein 6.6 H Total Protein 7.4 Albumin 3.5 Vancomycin Trough 16.1 03/29/25 03/29/25 08:01 12:03 WBC RBC Hgb Hct MCV MCH MCHC RDW Plt Count MPV Immature Gran % (Auto) Neut % (Auto) Lymph % (Auto) Guthrie % (Auto) Eos % (Auto) Baso % (Auto) Lymph # (Auto) Guthrie # (Auto) Eos # (Auto) Baso # (Auto) Abs Immat Gran (auto) Absolute Neuts (auto) Absolute Nucleated RBC Nucleated RBC % ESR Sodium Potassium Chloride Carbon Dioxide Anion Gap BUN Creatinine Estim Creat Clear Calc Estimated GFR Glucose POC Capillary Glucose 99 121 H Calcium Magnesium Total Bilirubin AST ALT Alkaline Phosphatase C-Reactive Protein Total Protein Albumin Vancomycin Trough
[2025-03-29] MEDS: DOXEPIN HCL 25 MG CAPSULE 150 MG PO (21:21)
[2025-03-29 22:00] VITALS: BP 146/78; PULSE 89; RESP 20; TEMP 36.7; O2SAT 98
[2025-03-30] MEDS: LIPASE/AMYLASE/PROTEASE 12,000 UNITS CAP 2 CAP PO ×2 (05:52→13:04)
[2025-03-30] MEDS: CYCLOBENZAPRINE HCL 5 MG TABLET PO ×2 (05:52→13:04)
[2025-03-30] MEDS: metroNIDAZOLE 500 MG/ISO 100ML 500 MG/100 ML BAG 100 MG IVPB (05:52)
[2025-03-30 06:00] VITALS: BP 150/81; PULSE 86; RESP 20; TEMP 36.3; O2SAT 97
[2025-03-30 06:55] LABS: Hematocrit 41.3 % (42.0-52.0); Hemoglobin 13.9 g/dL (14.0-18.0); Immature Granulocyte Percent A 1.5 % (0-0.5); Lymphocytes Absolute Auto 2.05 K/mm3 (0.9-3.2); Mean Corpuscular HGB Conc 33.7 g/dl (32-36); Mean Corpuscular Hemoglobin 30.9 pg (26-34); Mean Corpuscular Volume 91.8 fl (80-100); Nucleated Red Blood Cells Absolute Auto 0.000 K/mm3 (0.0-0.012); Nucleated Red Blood Cells Perc 0.0 % (0.0-0.2); Platelet Count Result 248 k/mm3 (150-375); Red Blood Count 4.50 M/mm3 (4.6-6.20); White Blood Count 8.8 K/mm3 (4.5-10.0)
[2025-03-30 07:28] LABS: Alanine Aminotransferase 36 U/L (6-50); Albumin Level 3.7 g/dL (3.5-5.1); Alkaline Phosphatase 134 U/L (38-126); Anion Gap 10 mmol/L (4-12); Aspartate Amino Transferase 48 U/L (17-59); Bilirubin,Total 0.6 mg/dL (0.2-1.3); Blood Urea Nitrogen 11 mg/dL (9-20); Calcium 8.6 mg/dL (8.4-10.2); Carbon Dioxide 22 mmol/L (22-30); Chloride 105 mmol/L (98-107); Estimated CRCL calculation 106 ml/min; Estimated Glomerular Filt Rate > 60; Glucose 130 mg/dL (65-110); Magnesium 2.3 mg/dL (1.6-2.3); Potassium 3.9 mmol/L (3.4-5.0); Sodium 137 mmol/L (137-145); Total Protein 7.9 g/dL (6.3-8.2)
[2025-03-30] MEDS: oxyCODONE/ACETAMINOPHEN (*CRX) 10-325 MG TABLET 1 TAB PO (08:42)
[2025-03-30] MEDS: ENOXAPARIN 40 MG/0.4 ML SYRINGE SUB-Q (08:44)
[2025-03-30] MEDS: ATORVASTATIN 40 MG TABLET PO (08:46)
[2025-03-30] MEDS: EMPAGLIFLOZIN 25 MG TABLET PO (08:46)
[2025-03-30] MEDS: CHOLECALCIFEROL (VITAMIN D3) 25 MCG (1,000 UNITS) TABLET 50 MCG PO (08:46)
[2025-03-30] MEDS: PANTOPRAZOLE 40 MG TABLET PO (08:46)
[2025-03-30] MEDS: BUDESONIDE 3 MG CAP.SR.24H PO (08:46)
[2025-03-30] MEDS: GLIMEPIRIDE 2 MG TABLET 4 MG PO (08:46)
[2025-03-30] MEDS: buPROPion HCL SR (12 HR) 150 MG TAB 300 MG PO (08:47)
[2025-03-30] MEDS: VANCOMYCIN 1,500 MG/NS 500 ML 1,500 MG/500 ML BAG 250 MG IVPB (09:00)
[2025-03-30] MEDS: CIPROFLOXACIN 500 MG TAB PO (12:36)
--- NOTE | 2025-03-31 08:59 | P.DS_ITS ---
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 He was in a dark room because his daughter was trying to save electricity and have the lights off. Prior to the fall he had right foot redness starting already for 2 weeks. Cellulitis and right foot ulcer due to diabetes. Status post partial excision right 5th metatarsal, excisional debridement of right diabetic foot ulcer including skin subcutaneous tissue and muscle on 03/28/2025. Wound culture grew MRSA sensitive to ciprofloxacin which she was sent home on for a total of 7 days post source control. He was discharged with home health. In stable condition. Discussed the risks versus benefits of medication. All his questions and concerns were answered to satisfaction. He has follow-up with the orthopedic surgeon. Also advised follow-up with his PCP to which he agreed. He was full code during the admission. Time Spent with Patient Time attestation: Total time spent providing and/or coordinating discharge services: Time spent: Greater than 30 minutes Exam Const: General: comfortable and no acute distress HENMT: Mouth: Yes moist mucous membranes Eyes: Pupils: Equal, round and reactive pupils present Neck: Neck: supple Resp: Effort & Inspection: normal respiratory effort Auscultation: clear to auscultation bilaterally Cardio: Rate: regular rate Rhythm: regular rhythm GI: GI Palp: Yes Soft to palpation Extrem: General: no edema DS: Data Data Completed and Pending Labs on day of discharge: Labs from last 24 hours 03/30/25 11:59 POC Capillary Glucose 184 H Preliminary micro results at discharge 03/27/25 09:00 Anaerobic Culture - Preliminary Foot Right 03/26/25 17:31 Blood Culture - Preliminary Blood 03/26/25 18:16 Blood Culture - Preliminary Blood Discharge Plan Discharge Attending physician on discharge: Romy Heller Consulting providers: Fausto Carroll Discharging Clinician: Romy Heller Patient Disposition: Home with Home Health Service Activity: november shower Diet: heart healthy and diabetic Wound Care Instructions: follow printed instructions Discharge Instructions: Orthopedic Recommendations Dr. Fausto Carroll [phone] * Weight bearing on the heel, with post op shoe (forefoot offloader) * Elevate * Keep clean/dry. * Follow up in 2 weeks for suture removal. Per Care Coordination Patient has been accepted to have [facility] for RN visits for wound care. [phone]. [facility] will call toa rrange a time to see you in your home. Patient Instructions: Antibiotic Form, MRSA (Methicillin-Resistant Staphylococ cus Aureus) (GEN) Patient Language: Chinese Stand Alone Forms: General Discharge Information Follow-up/Referrals: Kisha Bland FNP [Advanced Practice Nurse, Orthopedics] - 04/10/25 10:30 am Discharge Medications: New ciprofloxacin HCl 500 mg Tablet 500 mg PO Q12HR Qty: 9 0RF Continued insulin glargine [Lantus U-100 Insulin] 100 unit/mL Solution 100 unit SUBCUT QPM doxepin 100 mg Capsule 150 mg PO HS omeprazole 20 mg Capsule,Delayed Release(Dr/Ec) 40 mg PO DAILY diazepam 5 mg Tablet 5 mg PO BID PRN (Reason: Anxiety) bupropion HCl 200 mg Tablet Sustained-Release 12 Hr 300 mg PO DAILY Ozempic 1 mg/dose (2 mg/1.5 mL) Pen Injector 1 mg SUBCUT WEEKLY oxycodone-acetaminophen 10-325 mg tablet 1 tablet PO TID metoclopramide HCl 10 mg tablet 10 mg PO TID cyclobenzaprine 10 mg tablet 5 mg PO TID glimepiride 4 mg tablet 4 mg PO DAILY Creon 24,000-76,000 -120,000 unit capsule,delayed release(DR/EC) 1 cap PO TID Patient Comments: 24,0000 units Rx Instructions: administer with meals and/or snacks cholecalciferol (vitamin D3) 50 mcg (2,000 unit) capsule 50 mcg PO DAILY duloxetine 30 mg capsule,delayed release(DR/EC) 30 mg PO TID loperamide [Anti-Diarrheal (loperamide)] 2 mg capsule 2 mg PO TID PRN (Reason: loose stool) quetiapine 200 mg tablet 200 mg PO HS atorvastatin 40 mg tablet 40 mg PO DAILY Jardiance 25 mg tablet 25 mg PO DAILY budesonide 3 mg capsule,delayed,extend.release 3 mg PO DAILY Qty: 30 2RF Discontinued clindamycin HCl 300 mg capsule 300 mg PO TID Date of admission: 03/27/25 09:26 Primary Care Provider: Dennis Camejo Admitting Provider: Yeni Camarena Attending physician on admission: Yeni Camarena Condition: Stable Hospitalist MIPS Heart Failure (Exclusion) Patient has history of Heart Transplant or Left Ventricular Assistive Device?: No IF YES, STOP HERE Heart Failure (Qualifier) Patient has current or prior documentation of LVEF less than or equal to 40%, or mod/servere depressed LVSF?: No IF NO, STOP HERE
== END 2025-03-30 15:22 | disposition home health service (06) | DRG 623 ==
LOC: ANHED 18:40 → ANH3MEDSUR 19:20
PROVIDERS: Nurse Practitioner; Orthopaedic Surgery; Admitting Provider Internal Medicine; Emergency Provider Student in an Organized Health Care Education/Training Program; PCP Emergency Medicine; Visit Provider General Practice
PROC: 0KBV0ZZ Excision of Right Foot Muscle, Open Approach (ICD-10-PCS; principal; 2025-03-28 15:00)
DX: E11.621 Type 2 diabetes mellitus with foot ulcer (principal); L03.115 Cellulitis of right lower limb; L97.515 Non-pressure chronic ulcer of other part of right foot with muscle involvement without evidence of necrosis; E11.628 Type 2 diabetes mellitus with other skin complications; E11.40 Type 2 diabetes mellitus with diabetic neuropathy, unspecified; I10 Essential (primary) hypertension; K74.60 Unspecified cirrhosis of liver; K21.9 Gastro-esophageal reflux disease without esophagitis; M25.511 Pain in right shoulder; R42 Dizziness and giddiness; R29.6 Repeated falls; F17.210 Nicotine dependence, cigarettes, uncomplicated; G47.33 Obstructive sleep apnea (adult) (pediatric); I25.2 Old myocardial infarction; Z89.422 Acquired absence of other left toe(s); Z79.4 Long term (current) use of insulin
CPT/HCPCS: 36415; 36600; 71045; 73030; 73600; 73620; 73720; 80053; 80202; 82140; 82375; 82607; 82805; 82948; 83036; 83050; 83605; 83735; 84145; 84443; 84484; 85018; 85025; 85610; 85652; 85730; 86140; 87040; 87070; 87075; 87186; 87205; 93005; 96365; 96366; 96367; 96372; 96375; 97161; 99285; A9270; A9577; G0378; J0692; J1650; J1836; J2250; J2270; J2405; J2704; J3010; J3373; J7050; J7070; J7120

== ENCOUNTER 2025-04-06 14:47 | Emergency (ER) | payer MEDICARE, OTHER, SELFPAY ==
--- OUTSIDE RECORDS SUMMARY | 2025-03-30 11:36 | XMS_ITS | Continuity of Care Document ---
Author Organization [facility] Address [address] [facility] [address] Phone Care Team Providers Care Back Maker Name Role Phone Dennis Camejo MD Unavailable Unavailable Allergies, Adverse Reactions, Alerts Substance Reaction Status Criticality meloxicam Active No Information Medications Medication Instructions Dosage Effective Dates (start - stop) Status Comments Reglan 10 mg tablet take 1 tablet by oral route 3 times every day 10 MG - Active omeprazole 40 mg capsule,delayed release take 1 capsule by oral route every day before a meal 40 MG - Active fenofibrate 54 mg tablet take 1 tablet by oral route every day 54 MG - Active Crestor 40 mg tablet take 1 tablet by oral route every day 40 MG - Active albuterol sulfate HFA 90 [...] day with food 40 MG - Active Valtrex 1 gram tablet [...] day at bedtime 100 MG - Active Amaryl 4 mg tablet [...] Diagnoses Date Provider Providers Copied on Encounter [facility], [address], [place], [place], [address], [place] tel:[phone] [facility] No Information Mar- 5 Bashir Ponce [address], [place], [place], [address] , [place]. [phone] OFFICE/OUTPA TIENT VISIT, [facility], [address], [place], [place], [address], [place] [phone] [facility] gastropare sis1 (chief complaint) HLP (chief complaint) GastroparesisGERD w/o esophagitisMixed hyperlipidemiaTobac co use 5 Bashir Ponce [address], [place], [place], [address] , [place]. tel:[phone] PREV VISIT, EST, AGE 40-64 [facility], [address], [place], [place], [address], [place] tel:[phone] [facility] physical (chief complaint) Encounter for general adult medical examination without abnormal findings Sep- 5 Bashir Ponce [address], [place], [place], [address] , [place]. tel:[phone] OFFICE/OUTPA TIENT VISIT, EST [facility], [address], [place], [place], [address], [place] tel:[phone] [facility] osteomyeli tis1 (chief complaint) Other acute osteomyelitis, left ankle and footAcquired absence of other left toe(s) Sep-0 5 Bashir Collins. [address], [place], [place], [address] , [place]. tel:[phone] OFFICE/OUTPA TIENT VISIT, [facility], [address], [place], [place], [address], [place] tel:[phone] [facility] toe (chief complaint) liver1 (chief complaint) HLP (chief complaint) Mixed hyperlipidemiaHepat ic focal nodular hyperplasiaType 2 diabetes mellitus with diabetic mononeuropathyCellu litis of left toeAcquired absence of other left toe(s) 5 Bashir Ponce [address], [place], [place], [address] , [place]. tel:[phone] OFFICE/OUTPA TIENT VISIT, [facility], [address], [place], [place], [address], [place] tel:[phone] [facility] HLP (chief complaint) Liver1 (chief complaint) Hepatic focal nodular hyperplasiaOther cirrhosis of liverMixed hyperlipidemia 4 Bashir Ponce [address], [place], [place], [address] , [place]. tel:[phone] OFFICE/OUTPA TIENT VISIT, [facility], [address], [address], [place] tel:[phone] [facility] sick (chief complaint) liver1 (chief complaint) DM (chief complaint) skin (chief complaint) Other cirrhosis of liverHepatic focal nodular hyperplasiaAcute bronchitisType 2 diabetes mellitus with diabetic mononeuropathyAbnor mal weight lossPsoriasis 4 Bashir Collins. [address], [place], [place], [address] , [place]. tel:[phone] OFFICE/OUTPA TIENT VISIT, [facility], [address], [address], [place] tel:[phone] [facility] sick (chief complaint) Acute bronchitis 4 Basihr Collins. [address], [place], [place], [address] , [place]. tel:[phone] OFFICE/OUTPA TIENT VISIT, [facility], [address], [place], [place], [address], [place] tel:[phone] [facility] GERD1 (chief complaint) GERD w/o esophagitisPolyp of colonOther cirrhosis of liverType 2 diabetes mellitus with diabetic mononeuropathyGastr oparesis 3 Camejo Dennis. [address], [place], [place], [address] , [place]. tel:[phone] OFFICE/OUTPA TIENT VISIT, EST [facility], [address], [place], [place], [address], [place] tel:[phone] [facility] liver cirrhosis1 (chief complaint) HLP (chief complaint) Other cirrhosis of liverMixed hyperlipidemiaGERD w/o esophagitis 3 Camejo Dennis. [address], [place], [place], [address] , [place]. tel:[phone] OFFICE/OUTPA TIENT VISIT, [facility], [address], [place], [place], [address], [place] tel:[phone] [facility] liver cirrhosis1 (chief complaint) Other cirrhosis of liverLymphadenopath yHepatic focal nodular hyperplasia 3 Camejo Dennis. [address], [place], [place], [address] , [place]. tel:[phone] OFFICE/OUTPA TIENT VISIT, [facility], [address], [place], [place], [address], [place] tel:[phone] [facility] HLP (chief complaint) DM (chief complaint) liver cirrhosis1 (chief complaint) Type 2 diabetes mellitus with diabetic mononeuropathyMixed hyperlipidemiaOther cirrhosis of liverExocrine pancreatic insufficiencyPolyp of colon 3 Camejo Dennis. [address], [place], [place], [address] , [place]. tel:[phone] PREV VISIT, EST, AGE 40-64 [facility], [address], [place], [place], [address], [place] tel:[phone] [facility] physical (chief complaint) Encounter for general adult medical exam w abnormal findingsGERD w/o esophagitisPolyp of colonType 2 diabetes mellitus with diabetic mononeuropathyAbnor mal weight lossCoronary artery disease of deering coronary artery without angina pectorisGeneralized Anxiety DisorderMixed hyperlipidemia 3 Bashir Collins. [address], [place], [place], [address] , [place]. tel:[phone] OFFICE/OUTPA TIENT VISIT, [facility], [address], [place], [place], [address], [place] tel:[phone] [facility] chest pain1 (chief complaint) Chest painCAD of deering coronary artery with angina pectorisEssential (primary) hypertension 2 Bashir Collins. [address], [place], [place], [address] , [place]. tel:[phone] [facility], [address], [address], [place] tel:[phone] [facility] No Information 1 Bashir Collins. [address], [place], [place], [address] , [place]. tel:[phone] OFFICE/OUTPA TIENT VISIT, [facility], [address], [place], [place], [address], [place] tel:[phone] [facility] Sleep apnea1 (chief complaint) gastric ulcer1 (chief complaint) CAD (chief complaint) DM (chief complaint) chronic pain1 (chief complaint) Sleep apneaHyperlipidemia Chronic gastric ulcer without perforationChronic pain syndromeAnxietyType 2 diabetes mellitus without complicationsHerpes simplex infection 1 Bashir Collins. [address], [place], [place], [address] , [place]. tel:[phone] Family History Family Member Type Diagnosis Age At Onset Brother Problem Obesity Mother Problem unknown Father Problem of 65 unknown Payers Payer name Insurance type Covered alliance party ID Authoriza tion(s) [facility] [id number] Social History Type Description Quantity Date Captured [...] ordered Referral Referred To: Rodrigo Bolanos [id number] [place], [place], [phone] Ordered: Referrals: Allopathic & Osteopathic Physicians : Internal Medicine : Gastroenterology. Rodrigo Bolanos. Evaluate and treat ordered Referral Ordered: MRI ABDOMEN W/O & W/DYE ordered Referral Ordered: Joao Doll -Allopathic & Osteopathic Physicians : Internal Medicine : Gastroenterology (related to Other cirrhosis of liver) ordered Referral Referred To: Joao Doll [address] [place], [place], [phone] Ordered: Referrals: Allopathic & Osteopathic Physicians : [...] Referrals: Pain Medicine. Evaluate and treat ordered Appointment Lupillo Tariq BOOKED History Of Present Illness Encounter Date Complaint History Of Prese nt Illness gastroparesis1 Pt has gastropar esis with chronic nausea. Pt takes reglan and doing ok. Pt needs reglan refilled . Pt also has GERd Pt takes omeprazole and doing ok HLP Pt has HLP Pt ta kes crestor and feno. Pt denies any myalgia. physical Pt needs annual physical pt has multiple complicated medical issue Pt has HLP and VIGIL. Pt sees liver specialist. Pt has liver lesion and he thinks that he had MRI done last year for follow up but he is not sure. 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 He has DM and anxiety and depression and he is seeing PCP and specialists at [place] for above. he has been on vancomycin daily for osteomyelitis left foot for the past several weeks at [facility] and he is released to home with oral doxycycline and he will attend wound care clinic at [facility] next week with hyperbaric chamber. Pt is very confused about his overwhelming medical conditions. He states that his left foot wound is stable without drainage now Pt denies any fever osteomyelitis1 pt had left 2nd and 3rd toe amputation recently by [place] vascular surgeon 2-3 months ago and he developed osteomyelitis around left 2nd and 3rd toe post amputation. he was admitted to inpatient for IV abx and he was discharged to [facility] on 09/01/24 and he supposes to stay at [facility] until 10/12/24 but insurance did not approve extended stay past 09/18/24. he was told that he has to pay $250 per day if he decides to stay at [place]. Pt is at last day of the [place] today. He is not comfortable with giving himself vancomycin at home. He denies any fever. Pt notices some drainage from the amputation site but no fever or any purulent drainage. HLP Pt is on feno an d crestor and [facility] he also is [place] DM liver1 pt has liver mas s and liver cirrhosis. Pt is seeing liver specialist Pt never did MRI of liver pt states that he had ultrasound done by liver specialist and everything is ok. He denies any abd pain toe Pt underwent lef t 2nd toe amputation about two weeks ago due to infection. Pt does have poorly controlled DM. His wound culture did grow MRSA. he was on cipro, doxy and also augmentin as well. Pt followed up with vascular surgeon in [place] and he was told that he needs left 3rd toe amputation as well due to exposed bone and potential infection. pt denies any fever, chill. Pt currently has gauze and MARCO wrap for his left foot. Pt wants 2nd opinion regarding left 3rd toe amputation. Liver1 Pt has liver cir rhosis and liver nodule Pt is seeing liver specialist .Pt did not do liver MRI yet. HLP Pt has HLP Pt [place] w liver specialist and he was started on feno in addition to crestor. He is on 40 mg crestor now. He was told that he needs to get above meds from [place]. He also supposes to do liver MRI but he never did it. he also will do liver ultrasound soon . sick Pt c/o productiv e cough with [...] was 8.2/ He missed his annmarie with [place] endo recently skin Pt notices a dry [...] with liver mass. Pt has annmarie with [facility] liver specialist in November 09. pt c/o [...] bleeding. Pt is also on creon by [place] PCP but he never was told that he has pancreatitis DM Pt has DM. Pt is on ozempic and also latus and jardiance and his glucose and A1c were decent. He HLP Pt has HLP. pt h as high cholesterol and high tg. Pt states that he has been off lipitor for one year for unknown reason He told me [place] doctor took him off lipitor one year ago but he does not know why physical Pt needs annual physical Pt has been seeing doctor but he has not been seeing MD for almost one year Pt states that the [place] doctor does not take him seriously Pt [...] any chest pain. Pt wants full physical chest pain1 Pt c/o acute ons et [...] acute chest pain currently. Pt called his [place] MD who could not get him in until february. Pt also has HTn and DM and multiple risk factors DM Pt has DM. Pt ta kes ozempic, lantus and amaryl. His glucose is around 140s at home Pt denies any hypoglycemia. Pt denies any neuropathy CAD Pt states that h e has remote history of CAD. Pt currently does not see a financial reporting director. he denies any chest pain or sob. He takes lipitor and atenolol. 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 Pt uses cpap nightly and doing [...] hydrocodone for many years. His PCP at [place] keeps cutting down his norco dose. He used to take up to 4 per day, but gradually decreased dose to currently 0.5 norco per day. Pt states that his pain is completely out of control. He works and stay on his feet al day and he can barely function due to ankle and back pain, He states that is PCP at [place] does not listen to him at all. gastric ulcer1 Pt has history o f gastric ulcer. Pt had EGD 3 years ago and he is on both protonix and omeprazole for unknown reason. Pt denies any abd pain or GERD. Pt had colonoscopy 18 months ago at [place] and he has two polyps and he supposes to repeat in 2 years. Pt does not know the type of polyp Pt denies any GI bleeding of blood loss Instructions Date Instruction Additional Infor matjanette No Information Assessments Type Assessment Date No Information
--- NOTE | ~2025-04-06 | XR_ITS ---
EXAMINATION: XR clavicle RT, 04/06/2025 16:21 CDT HISTORY: fall-pain swelling over proximal clavicle COMPARISON: No comparisons available. Findings: No acute fracture or malalignment. No significant degenerative changes. Soft tissues unremarkable. Impression: No acute fracture or malalignment. Reviewed, dictated and finalized at location A. Impression: No acute fracture or malalignment.
--- NOTE | ~2025-04-06 | CT_ITS ---
EXAMINATION:CT diagnostic chest w con DATE: 04/06/2025 18:16 INDICATION: Right upper chest wall swelling. TECHNIQUE: Computed tomography (CT) of the chest was performed with 75 mL Omnipaque 350 intravenous contrast. Automated exposure control and iterative reconstruction technique were employed. The dose-length product (DLP) was 289.35 mGy-cm. COMPARISON: Chest CT 05/12/2023 FINDINGS: There are blebs at right lung apex. Calcified left lung nodules and calcified left hilar lymph nodes are consistent with old granulomatous disease. There is mild atelectasis bilaterally. No pleural effusion. The heart size is normal. There are coronary artery calcifications. No pericardial effusion. The liver demonstrates a nodular surface contour, consistent with cirrhosis. There is severe cervical and thoracic spondylosis. There is a chronic burst fracture of T11. There is a comminuted fracture of head of right clavicle. The main distal fracture fragment demonstrates 3 mm anterior displacement. IMPRESSION: 1. Comminuted fracture of head of right clavicle. 2. Cirrhosis of the liver. Reviewed, dictated and finalized at location E.
[2025-04-06 15:05] VITALS: BP 125/73; PULSE 92; RESP 16; TEMP 36.7; O2SAT 99
--- NOTE | 2025-04-06 16:14 | ED.FALL ---
HPI - Fall General Chief Complaint: Fall <Herminio Jones APRN - Last Filed: 04/06/25 19:09> Stated Complaint: fall 10-14 days ago, collar bone pain still <Herminio Jones APRN - Last Filed: 04/06/25 19:09> Time Seen by Provider: 04/06/25 15:56 <Herminio Jones APRN - Last Filed: 04/06/25 19:09> Source: patient <Herminio Jones APRN - Last Filed: 04/06/25 19:09> Mode of arrival: ambulatory <Herminio Jones APRN - Last Filed: 04/06/25 19:09> Limitations: no limitations <Herminio Jones APRN - Last Filed: 04/06/25 19:09> History of Present Illness HPI Narrative: Lupillo is a 60-year-old male patient presenting to ER today with complaints right-sided collarbone pain. He reports he fell 10-14 days ago. Tripped in the garage and injured his shoulder. Patient was seen in the ER on 03/26 and had an x-ray of his shoulder completed and was negative for any sign of fracture. Also was found to have a foot infection with MRSA. Is currently taking antibiotics for this and has been having wound dressed by home health. States that he continues to have right clavicle pain and swelling over the anterior proximal clavicle. States he cannot get comfortable at night when trying to sleep due to the pain and swelling. <Herminio Jones APRN - Last Filed: 04/06/25 19:09> Related Data Home Medications: Home Medications ?Medication ?Instructions ?Recorded ?Confirmed ?Last Taken ?Type bupropion HCl 200 mg tablet,12 hr 300 mg PO DAILY 03/28/20 03/26/25 03/25/25 History sustained-release diazepam 5 mg tablet 5 mg PO BID PRN Anxiety 03/28/20 03/26/25 03/26/25 History doxepin 100 mg capsule 150 mg PO HS 03/28/20 03/26/25 03/25/25 History insulin glargine 100 unit/mL 100 unit subcut QPM 03/28/20 03/26/25 03/25/25 History subcutaneous solution (Lantus U-100 Insulin) omeprazole 20 mg capsule,delayed 40 mg PO DAILY 03/28/20 03/26/25 03/26/25 History release semaglutide 1 mg/dose (2 mg/1.5 1 mg subcut WEEKLY 03/28/20 03/26/25 Unknown History mL) subcutaneous pen injector (Ozempic) atorvastatin 40 mg tablet 40 mg PO DAILY 03/26/25 03/26/25 03/25/25 History cholecalciferol (vitamin D3) 50 50 mcg PO DAILY 03/26/25 03/26/25 03/26/25 History mcg (2,000 unit) capsule cyclobenzaprine 10 mg tablet 5 mg PO TID 03/26/25 03/26/25 03/26/25 History duloxetine 30 mg capsule,delayed 30 mg PO TID 03/26/25 03/26/25 03/26/25 History release empagliflozin 25 mg tablet 25 mg PO DAILY 03/26/25 03/26/25 03/26/25 History (Jardiance) glimepiride 4 mg tablet 4 mg PO DAILY 03/26/25 03/26/25 03/26/25 History rlwovr-mvzgcova-cfnpjfv 1 cap PO TID 03/26/25 03/26/25 03/26/25 History 24,000-76,000-120,000 unit capsule,delayed rel (Creon) loperamide 2 mg capsule 2 mg PO TID PRN loose stool 03/26/25 03/26/25 Unknown History (Anti-Diarrheal (loperamide)) metoclopramide HCl 10 mg tablet 10 mg PO TID 03/26/25 03/26/25 03/26/25 History oxycodone-acetaminophen 10 mg-325 1 tablet PO TID pain 03/26/25 03/26/25 03/26/25 History mg tablet quetiapine 200 mg tablet 200 mg PO HS 03/26/25 03/26/25 03/25/25 History <Herminio Jones APRN - Last Filed: 04/06/25 19:09> Allergies/Adverse Reactions: Allergies Allergy/AdvReac Type Severity Reaction Status Date / Time meloxicam Allergy Ulcers Verified 03/26/25 22:43 <Herminio Jones APRN - Last Filed: 04/06/25 19:09> Review of Systems Review of Systems: Pertinent positives per HPI. Patient denies any fever, chills, rash, headache, visual changes, dizziness, cough, runny nose, sore throat, shortness of breath, chest pain, palpitations, nausea, vomiting, diarrhea, constipation, abdominal pain, or any urinary issues. <Herminio Jones APRN - Last Filed: 04/06/25 19:09> [facility] Past Medical History Medical History: Medical History Amputation of one or more toes L foot digits #2 and #3 ([facility], Jun 2024 and Jul 2024) Diabetic foot ulcer DOUG on CPAP Colon polyp Cirrhosis GERD (gastroesophageal reflux disease) Myocardial infarct Diabetes HTN (hypertension) Obesity <Herminio Jones APRN - Last Filed: 04/06/25 19:09> Social History Social History: Social History Smoking packs per day: 1.5 Smoking cigarettes per day: 30.0 Years smoked: 40 Smoking pack-years: 60.00 Smoking status: Light tobacco smoker Tobacco type: cigarettes and smokeless tobacco Second hand tobacco smoke exposure: No Alcohol intake: current Drinks per week: 2 Alcohol use details: current use rare occasional glass of wine, hx of alcohol abuse (5th of Vodka or Rum daily) Substance use: never Substance use type: does not use Other substance usage details: hydrocodone 5-acetaminophen 325 bid to tid Lack of Transportation: No Lack of Food: Never True Current Housing: I Have Housing Concerned About Future Housing: No Difficulty Paying Gas/Electric Bills: No Difficulty Paying for Meds: No Currently Unemployed: No Education: Decline to Answer Difficulty w/ Childcare or Family Care: No Living arrangements: alone Gender identity (if verbalized by the patient): Male Sexual Orientation (if Verbalized by the Patient): Straight or Heterosexual Spiritual care concerns: No <Herminio Jones APRN - Last Filed: 04/06/25 19:09> Comments At the time of my signature, I reviewed and agree with the nursing past medical, surgical, social, and family history. There is no relevant family history pertinent to the patient complaint. <Herminio Jones APRN - Last Filed: 04/06/25 19:09> Exam Narrative: General: Well-developed, obese, in no apparent distress Head: Normocephalic, atraumatic. Cardio: Regular rate and rhythm, s1 and s2 normal, no murmur appreciated. Resp: Clear to auscultation bilaterally, no rhonchi, rales, wheezing or rubs. Musculoskeletal: Mild swelling/contusion to the right anterior proximal clavicle-tender to palpation over the area, grossly normal range of motion, muscle strength strong and equal, peripheral pulse strong, no edema, no cyanosis, normal gait and station <Herminio Jones APRN - Last Filed: 04/06/25 19:09> Course Course Emergency Course: Portions of this record may have been created with voice recognition software. <Herminio Jones APRN - Last Filed: 04/06/25 19:09> LEARNING STRATEGIST/PA Physician Supervision This visit was performed by both a physician and an APC. I performed all aspects of the MDM as documented. <Stef Farr MD - Last Filed: 04/07/25 07:01> Vital Signs Vital signs: Vital Signs Temperature 98.1 F 04/06/25 15:05 Pulse Rate 92 04/06/25 15:05 Respiratory Rate 16 04/06/25 15:05 Blood Pressure 125/73 04/06/25 15:05 Pulse Oximetry 99 04/06/25 15:05 Oxygen Delivery Room Air 04/06/25 15:05 Temperature 98.4 F 04/06/25 21:20 Pulse Rate 77 04/06/25 21:20 Respiratory Rate 18 04/06/25 21:20 Blood Pressure 132/84 04/06/25 21:20 Pulse Oximetry 98 04/06/25 21:20 Oxygen Delivery Room Air 04/06/25 15:05 Vital signs reviewed <Herminio Jones APRN - Last Filed: 04/06/25 19:09> Vital Signs Temperature 98.1 F 04/06/25 15:05 Pulse Rate 92 04/06/25 15:05 Respiratory Rate 16 04/06/25 15:05 Blood Pressure 125/73 04/06/25 15:05 Pulse Oximetry 99 04/06/25 15:05 Oxygen Delivery Room Air 04/06/25 15:05 Temperature 98.4 F 04/06/25 21:20 Pulse Rate 77 04/06/25 21:20 Respiratory Rate 18 04/06/25 21:20 Blood Pressure 132/84 04/06/25 21:20 Pulse Oximetry 98 04/06/25 21:20 Oxygen Delivery Room Air 04/06/25 15:05 <Stef Farr MD - Last Filed: 04/07/25 07:01> Vital Signs Temperature 98.1 F 04/06/25 15:05 Pulse Rate 92 04/06/25 15:05 Respiratory Rate 16 04/06/25 15:05 Blood Pressure 125/73 04/06/25 15:05 Pulse Oximetry 99 04/06/25 15:05 Oxygen Delivery Room Air 04/06/25 15:05 Temperature 98.4 F 04/06/25 21:20 Pulse Rate 77 04/06/25 21:20 Respiratory Rate 18 04/06/25 21:20 Blood Pressure 132/84 04/06/25 21:20 Pulse Oximetry 98 04/06/25 21:20 Oxygen Delivery Room Air 04/06/25 15:05 <Ninfa Elmore PA-C - Last Filed: 04/06/25 21:55> MDM - Fall MDM Narrative Medical decision making narrative: At the time of visit patient is resting comfortably on the exam table. Patient appears to be nontoxic. Complaints right-sided collarbone pain. He reports he fell 10-14 days ago. Tripped in the garage and injured his shoulder. Patient was seen in the ER on 03/26 and had an x-ray of his shoulder completed and was negative for any sign of fracture. Also was found to have a foot infection with MRSA. Is currently taking antibiotics for this and has been having wound dressed by home health. States that he continues to have right clavicle pain and swelling over the anterior proximal clavicle. States he cannot get comfortable at night when trying to sleep due to the pain and swelling. Discussed patient's case with Dr. Farr. X-ray of the right clavicle was ordered. Clavicle x-ray was negative so labs and CT Diagnostics chest ordered. Labs: White blood cell count is 10, H and H is 13.8 in 43.1, platelet count is 288, anti coagulation studies within normal limits, electrolytes within normal limits lung, BUN is 14, creatinine 0.69, GFR is greater than 60, alk phosphate 134, AST 46 and ALT 41 Diagnostics: Right clavicle x-rays negative for any acute fracture or malalignment. Plan: Supportive measures were discussed with the patient and they voiced understanding discharge instructions and agrees to treatment plan. Return precautions reviewed This visit was performed by both a physician and an APC. I performed all aspects of the MDM as documented. Sign out to Ninfa KHAN- Report was given for contunuity of care. <Herminio Jones APRN - Last Filed: 04/06/25 19:09> At the time of visit patient is resting comfortably on the exam table. Patient appears to be nontoxic. Complaints right-sided collarbone pain. He reports he fell 10-14 days ago. Tripped in the garage and injured his shoulder. Patient was seen in the ER on 03/26 and had an x-ray of his shoulder completed and was negative for any sign of fracture. Also was found to have a foot infection with MRSA. Is currently taking antibiotics for this and has been having wound dressed by home health. States that he continues to have right clavicle pain and swelling over the anterior proximal clavicle. States he cannot get comfortable at night when trying to sleep due to the pain and swelling. X-ray of the right clavicle was ordered. Labs and CT Diagnostics chest ordered. Labs: Diagnostics: Right clavicle x-rays negative for any acute fracture or malalignment. Plan: Supportive measures were discussed with the patient and they voiced understanding discharge instructions and agrees to treatment plan. Return precautions reviewed This visit was performed by both a physician and an APC. I performed all aspects of the MDM as documented. <Stef Farr MD - Last Filed: 04/07/25 07:01> At the time of visit patient is resting comfortably on the exam table. Patient appears to be nontoxic. Complaints right-sided collarbone pain. He reports he fell 10-14 days ago. Tripped in the garage and injured his shoulder. Patient was seen in the ER on 03/26 and had an x-ray of his shoulder completed and was negative for any sign of fracture. Also was found to have a foot infection with MRSA. Is currently taking antibiotics for this and has been having wound dressed by home health. States that he continues to have right clavicle pain and swelling over the anterior proximal clavicle. States he cannot get comfortable at night when trying to sleep due to the pain and swelling. Discussed patient's case with Dr. Frar. X-ray of the right clavicle was ordered. Clavicle x-ray was negative so labs and CT Diagnostics chest ordered. Labs: White blood cell count is 10, H and H is 13.8 in 43.1, platelet count is 288, anti coagulation studies within normal limits, electrolytes within normal limits lung, BUN is 14, creatinine 0.69, GFR is greater than 60, alk phosphate 134, AST 46 and ALT 41 Diagnostics: Right clavicle x-rays negative for any acute fracture or malalignment. Plan: Supportive measures were discussed with the patient and they voiced understanding discharge instructions and agrees to treatment plan. Return precautions reviewed This visit was performed by both a physician and an APC. I performed all aspects of the MDM as documented. Sign out to Ninfa KHAN- Report was given for contunuity of care. -- RG - Care signed out to myself at shift change pending STAT RAD imaging CT chest w/ contrast. This did show minimally displaced comminuted right clavicular fracture. Surrounding inflammatory change. Discussed imaging findings with patient. Patient placed in a sling. Discussed continued management of fracture, advised will need to have close follow-up with orthopedics. Will prescribe short course of Garnett for home use. Patient otherwise safe for discharge home. Given return precautions. Discharged in stable condition. Patient did have episode of hypoglycemia in the ED. Patient was allowed to eat and drink and this did correct. BG was re-rechecked and stable at time of d/c. <Ninfa Elmore PA-C - Last Filed: 04/06/25 21:55> Differential Diagnosis Differential diagnosis: Likely dislocation of shoulder region and other (Clavicle fracture, contusion, hematoma, abscess) <Herminio Jones APRN - Last Filed: 04/06/25 19:09> Lab Data Result diagrams: 04/06/25 17:20 04/06/25 17:20 <Herminio Jones APRN - Last Filed: 04/06/25 19:09> Labs: Lab Results 0904/06/25 04/06/25 Range/Units 17:20 19:18 20:01 WBC 10.0 (4.5-10.0) K/mm3 RBC 4.62 (4.6-6.20) M/mm3 Hgb 13.8 L (14.0-18.0) g/dL Hct 43.1 (42.0-52.0) % MCV 93.3 (80-100) fl MCH 29.9 (26-34) pg MCHC 32.0 (32-36) g/dl RDW 13.2 (11.5-14.5) % Plt Count 288 (150-375) k/mm3 MPV 9.4 (7.4-10.4) fl Immature Gran % (Auto) 0.6 H (0-0.5) % Neut % (Auto) 58.3 (45.5-73.1) % Lymph % (Auto) 27.5 (18.3-44.2) % [place] % (Auto) 9.6 H (2.6-8.5) % Eos % (Auto) 3.2 (0-4.4) % Baso % (Auto) 0.8 (0.2-1.2) % Lymph # (Auto) 2.74 (0.9-3.2) K/mm3 [place] # (Auto) 1.0 H (0.1-0.6) K/mm3 Eos # (Auto) 0.3 (0-0.3) K/mm3 Baso # (Auto) 0.1 (0.0-0.1) K/mm3 Abs Immat Gran (auto) 0.06 H (0.00-0.031) K/mm3 Absolute Neuts (auto) 5.8 (1.3-6.7) K/mm3 Absolute Nucleated RBC 0.000 (0.0-0.012) K/mm3 Nucleated RBC % 0.0 (0.0-0.2) % PT 13.6 (11.1-14.7) Seconds INR 1.0 APTT 29.6 (22.3-36.8) Seconds Sodium 137 (137-145) mmol/L Potassium 4.2 (3.4-5.0) mmol/L Chloride 101 (98-107) mmol/L Carbon Dioxide 28 (22-30) mmol/L Anion Gap 8 (4-12) mmol/L BUN 14 (9-20) mg/dL Creatinine 0.69 L (0.7-1.3) mg/dL Estim Creat Clear Calc 100 ml/min Estimated GFR > 60 (59 - ) Glucose 95 (65-110) mg/dL POC Capillary Glucose 52 L* 89 (65-105) mg/dl Calcium 9.0 (8.4-10.2) mg/dL Total Bilirubin 0.3 (0.2-1.3) mg/dL AST 46 (17-59) U/L ALT 41 (6-50) U/L Alkaline Phosphatase 134 H (38-126) U/L Total Protein 8.9 H (6.3-8.2) g/dL Albumin 4.3 (3.5-5.1) g/dL <Herminio Jones, [employer] - Last Filed: 04/06/25 19:09> Lab Results 04/06/25 04/06/25 04/06/25 Range/Units 17:20 19:18 20:01 WBC 10.0 (4.5-10.0) K/mm3 RBC 4.62 (4.6-6.20) M/mm3 Hgb 13.8 L (14.0-18.0) g/dL Hct 43.1 (42.0-52.0) % MCV 93.3 (80-100) fl MCH 29.9 (26-34) pg MCHC 32.0 (32-36) g/dl RDW 13.2 (11.5-14.5) % Plt Count 288 (150-375) k/mm3 MPV 9.4 (7.4-10.4) fl Immature Gran % (Auto) 0.6 H (0-0.5) % Neut % (Auto) 58.3 (45.5-73.1) % Lymph % (Auto) 27.5 (18.3-44.2) % [place] % (Auto) 9.6 H (2.6-8.5) % Eos % (Auto) 3.2 (0-4.4) % Baso % (Auto) 0.8 (0.2-1.2) % Lymph # (Auto) 2.74 (0.9-3.2) K/mm3 [place] # (Auto) 1.0 H (0.1-0.6) K/mm3 Eos # (Auto) 0.3 (0-0.3) K/mm3 Baso # (Auto) 0.1 (0.0-0.1) K/mm3 Abs Immat Gran (auto) 0.06 H (0.00-0.031) K/mm3 Absolute Neuts (auto) 5.8 (1.3-6.7) K/mm3 Absolute Nucleated RBC 0.000 (0.0-0.012) K/mm3 Nucleated RBC % 0.0 (0.0-0.2) % PT 13.6 (11.1-14.7) Seconds INR 1.0 APTT 29.6 (22.3-36.8) Seconds Sodium 137 (137-145) mmol/L Potassium 4.2 (3.4-5.0) mmol/L Chloride 101 (98-107) mmol/L Carbon Dioxide 28 (22-30) mmol/L Anion Gap 8 (4-12) mmol/L BUN 14 (9-20) mg/dL Creatinine 0.69 L (0.7-1.3) mg/dL Estim Creat Clear Calc 100 ml/min Estimated GFR > 60 (59 - ) Glucose 95 (65-110) mg/dL POC Capillary Glucose 52 L* 89 (65-105) mg/dl Calcium 9.0 (8.4-10.2) mg/dL Total Bilirubin 0.3 (0.2-1.3) mg/dL AST 46 (17-59) U/L ALT 41 (6-50) U/L Alkaline Phosphatase 134 H (38-126) U/L Total Protein 8.9 H (6.3-8.2) g/dL Albumin 4.3 (3.5-5.1) g/dL <Stef Farr MD - Last Filed: 04/07/25 07:01> Lab Results 04/06/25 04/06/25 04/06/25 Range/Units 17:20 19:18 20:01 WBC 10.0 (4.5-10.0) K/mm3 RBC 4.62 (4.6-6.20) M/mm3 Hgb 13.8 L (14.0-18.0) g/dL Hct 43.1 (42.0-52.0) % MCV 93.3 (80-100) fl MCH 29.9 (26-34) pg MCHC 32.0 (32-36) g/dl RDW 13.2 (11.5-14.5) % Plt Count 288 (150-375) k/mm3 MPV 9.4 (7.4-10.4) fl Immature Gran % (Auto) 0.6 H (0-0.5) % Neut % (Auto) 58.3 (45.5-73.1) % Lymph % (Auto) 27.5 (18.3-44.2) % [place] % (Auto) 9.6 H (2.6-8.5) % Eos % (Auto) 3.2 (0-4.4) % Baso % (Auto) 0.8 (0.2-1.2) % Lymph # (Auto) 2.74 (0.9-3.2) K/mm3 [place] # (Auto) 1.0 H (0.1-0.6) K/mm3 Eos # (Auto) 0.3 (0-0.3) K/mm3 Baso # (Auto) 0.1 (0.0-0.1) K/mm3 Abs Immat Gran (auto) 0.06 H (0.00-0.031) K/mm3 Absolute Neuts (auto) 5.8 (1.3-6.7) K/mm3 Absolute Nucleated RBC 0.000 (0.0-0.012) K/mm3 Nucleated RBC % 0.0 (0.0-0.2) % PT 13.6 (11.1-14.7) Seconds INR 1.0 APTT 29.6 (22.3-36.8) Seconds Sodium 137 (137-145) mmol/L Potassium 4.2 (3.4-5.0) mmol/L Chloride 101 (98-107) mmol/L Carbon Dioxide 28 (22-30) mmol/L Anion Gap 8 (4-12) mmol/L BUN 14 (9-20) mg/dL Creatinine 0.69 L (0.7-1.3) mg/dL Estim Creat Clear Calc 100 ml/min Estimated GFR > 60 (59 - ) Glucose 95 (65-110) mg/dL POC Capillary Glucose 52 L* 89 (65-105) mg/dl Calcium 9.0 (8.4-10.2) mg/dL Total Bilirubin 0.3 (0.2-1.3) mg/dL AST 46 (17-59) U/L ALT 41 (6-50) U/L Alkaline Phosphatase 134 H (38-126) U/L Total Protein 8.9 H (6.3-8.2) g/dL Albumin 4.3 (3.5-5.1) g/dL <Ninfa Elmore PA-C - Last Filed: 04/06/25 21:55> Imaging Data Attestation: I personally reviewed and interpreted this imaging study as follows: <Ninfa Elmore PA-C - Last Filed: 04/06/25 21:55> Radiologist's impression: STAT RAD CT chest w/ contrast: Impression: Minimally displaced comminuted proximal right clavicular fracture. This has a small amount of associated inflammatory change likely corresponding with the patient identified area of concern. <Ninfa Elmore PA-C - Last Filed: 04/06/25 21:55> Discharge Plan Discharge Clinical Impression: Closed fracture of right clavicle, Contusion of right clavicular region <Herminio Jones APRN - Last Filed: 04/06/25 19:09> Patient Disposition: Home <Herminio Jones APRN - Last Filed: 04/06/25 19:09> Condition: Stable <Herminio Jones APRN - Last Filed: 04/06/25 19:09> Instructions: Antibiotic Form, Clavicle Fracture (ED), How to Use a Sling (ED), Contusion in Adults (ED) <PAOLA Weiss Last Filed: 04/06/25 19:09> Additional Instructions: The CT scan of your chest showed a fracture of your right collarbone. Wear sling at all times. You may remove this when showering or sleeping, but avoid use of arm. Take Tylenol/ibuprofen as needed for pain. Garnett as needed for more severe pain. You will need to follow-up with orthopedics for further evaluation of fracture. Call office on [place] to make appointment. Apply ice pack to the affected area-20 minutes on/20 minutes off as needed. Return to the emergency room if symptoms worsen, new fall or injury, numbness, or any other symptoms of concern. <Herminio Jones APRN - Last Filed: 04/06/25 19:09> Patient Language: Mongolian <Herminio Jones APRN - Last Filed: 04/06/25 19:09> Prescriptions: New hydrocodone-acetaminophen 5-325 mg tablet 1 tablet PO Q6H PRN (Reason: pain) Qty: 12 0RF No Action insulin glargine [Lantus U-100 Insulin] 100 unit/mL Solution 100 unit SUBCUT QPM doxepin 100 mg Capsule 150 mg PO HS omeprazole 20 mg Capsule,Delayed Release(Dr/Ec) 40 mg PO DAILY diazepam 5 mg Tablet 5 mg PO BID PRN (Reason: Anxiety) bupropion HCl 200 mg Tablet Sustained-Release 12 Hr 300 mg PO DAILY Ozempic 1 mg/dose (2 mg/1.5 mL) Pen Injector 1 mg SUBCUT WEEKLY oxycodone-acetaminophen 10-325 mg tablet 1 tablet PO TID metoclopramide HCl 10 mg tablet 10 mg PO TID cyclobenzaprine 10 mg tablet 5 mg PO TID glimepiride 4 mg tablet 4 mg PO DAILY Creon 24,000-76,000 -120,000 unit capsule,delayed release(DR/EC) 1 cap PO TID Patient Comments: 24,0000 units Rx Instructions: administer with meals and/or snacks cholecalciferol (vitamin D3) 50 mcg (2,000 unit) capsule 50 mcg PO DAILY duloxetine 30 mg capsule,delayed release(DR/EC) 30 mg PO TID loperamide [Anti-Diarrheal (loperamide)] 2 mg capsule 2 mg PO TID PRN (Reason: loose stool) quetiapine 200 mg tablet 200 mg PO HS atorvastatin 40 mg tablet 40 mg PO DAILY Jardiance 25 mg tablet 25 mg PO DAILY budesonide 3 mg capsule,delayed,extend.release 3 mg PO DAILY Qty: 30 2RF doxycycline hyclate 100 mg capsule 100 mg PO BID 7 Days Qty: 14 0RF <Herminio Jones APRN - Last Filed: 04/06/25 19:09> Follow-up/Referrals: Bicalho,Eliud S., MD [Physician, Orthopedics] Referral Note: ORTHOPEDICS Dennis Camejo MD [Primary Care Provider, [facility]] <Herminio Jones APRN - Last Filed: 04/06/25 19:09> Time of Disposition: 20:52 <Herminio Jones APRN - Last Filed: 04/06/25 19:09> 20:52 <Stef Farr MD - Last Filed: 04/07/25 07:01> 20:52 <Ninfa Elmore PA-C - Last Filed: 04/06/25 21:55> Quality NIHSS Nursing Documentation ED NIHSS nursing documentation: reviewed/agree <Herminio Jones APRN - Last Filed: 04/06/25 19:09>
--- OUTSIDE RECORDS SUMMARY | 2025-04-06 16:18 | XMS_ITS | Clinical Summary ---
Author Organization [facility] Address [address] [place] [address] Care Team Providers Care Visor Installer Name Role Phone Dennis Camejo MD Primary Care Provider [phone] Source Comments [facility],non-owned Affiliates and Associated Physician Practices is amultiple site organization consisting of ambulatory clinics and hospital sitesin [place], [place], [place] and [place]. This disclosure is being madepursuant to the Care Everywhere program and may not contain all information available regarding this patient. 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 Gender Identity Not on file Sexual Orientation [...] Subscriber ID:Not on file Address: [address] [place] [address] Payer ID:Not on file Group ID:Not on file Type:Self Pay Address: [facility] MANAGED MEDICARE ADV SELF PAY NO INSURANCE Member Subscriber Plan / Payer (Ef fective for All Dates) Name:Lupillo Jimenez Member ID:Not on file Relation to Subscriber:Not on file Name:LUPILLO JIMENEZ Subscriber ID:Not on file Address: [address] [place] [address] Payer ID:Not on file Group ID:Not on file Type:Self Pay Address: [facility] MEDICARE ADV Care Teams Visor Installer Relationship Specialty Start Date End Date Dennis Camejo MD [address] [facility] [address] [place] [id number] PCP - General Family Medicine 04/09/23
--- OUTSIDE RECORDS SUMMARY | 2025-04-06 16:18 | XMS_ITS | Clinical Summary ---
Author Organization [facility] Address [facility] [place] [address] Care Team Providers Care Wash House Supervisor Name Role Phone Dennis Camejo MD Primary Care Provider [phone] Allergies Active Allergy Reactions Criticality Noted Date [...] Units total) by mouth daily. Active Pancrelipase, [id number], (CREON OR) Take 24,000 Units by mouth [...] 10 days. 30 capsule 04/01/20 25 Active Problems Problem Noted Date Diagnosed Date Osteomyelitis ([facility]) 08/20/2024 Encounters Date Type Department Care Team Description 03/22/2025 6:07 PM CDT - 03/22/2025 8:05 PM CDT Emergency [facility] [place] [address] Carly Leigh NP Foot Pain Discharge Disposition: Home or Self Care (Routine Discharge) 03/22/2025 Travel 03/22/2025 Telephone [facility] Multispecialty [facility] - [facility] [address] [facility], [address] [place] [id number] Colleen Ross NP Concerns; Appointment Request from [...] = 0.6 oz pur e alcohol) <1/week [facility] Utilities Answer Date Recorded In the past 12 months has [employer], oil, or water [facility] threatened to shut off services in your [...] any time in the past 12 m [facility], were you homeless or living in a [facility] (including now)? 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 Procedure Name Priority Date/Time Associated Diagnosis Comments [...] - 2.0 MMOL/L 03/22/2025 7:07 PM CDT [facility] 03/22/2025 6:15 PM CDT [facility] Final Result [facility] [address] [place] [address], * (ABNORMAL) COMPREHENSIVE METABOLIC PANEL (03/22/2025 6:15 PM CDT) GLUCOSE 199(H) 70 - 99 MG/DL 03/22/2025 6:52 PM CDT [facility] BUN 10 7 - 18 MG/DL 03/22/2025 6:52 PM CDT [facility] CREATININE S/P/B 0.95 0.7 - 1.3 MG/DL 03/22/2025 6:52 PM CDT [facility] SODIUM S/P/B 137 136 - 145 MMOL/L 03/22/2025 6:52 PM CDT [facility] POTASSIUM S/P/B 4.0 3.5 - 5.1 MMOL/L 03/22/2025 6:52 PM CDT [facility] CHLORIDE S/P/B 106 97 - 115 MMOL/L 03/22/2025 6:52 PM CDT [facility] CO2 27.0 21 - 32 MMOL/L 03/22/2025 6:52 PM CDT [facility] CALCIUM S/P/B 9.2 8.5 - 10.1 MG/DL 03/22/2025 6:52 PM CDT [facility] BILIRUBIN TOTAL S/P/B 0.4 0.2 - 1.2 MG/DL 03/22/2025 6:52 PM CDT [facility] Comment: THIS ASSAY IS NOT RECOMMENDED FOR PATIENTS UNDERGOING TREATMENT WITH ELTROMBOPAG DUE TO THE POTENTIAL FOR FALSELY ELEVATED RESULTS. TOTAL PROTEIN S/P/B 8.3(H) 6.4 - 8.2 G/DL 03/22/2025 6:52 PM CDT [facility] ALBUMIN S/P/B 3.6 3.4 - 5.0 G/DL 03/22/2025 6:52 PM CDT [facility] AST 24 15 - 37 U/L 03/22/2025 6:52 PM CDT [facility] ALT 35 16 - 60 U/L 03/22/2025 6:52 PM T [facility] ALKALINE PHOSPHATASE S/P/B 142(H) 50 - 136 U/L 03/22/2025 6:52 PM CDT [facility] ANION GAP 4.0 2 - 10 MMOL/L 03/22/2025 6:52 PM CDT [facility] BUN CREATININE RATIO 10.5 6 - 26 03/22/2025 6:52 PM T [facility] A/G RATIO 0.8(L) 1.0 - 2.0 RATIO 03/22/2025 6:52 PM T [facility] GFR ESTIMATE >90 >90 ML/MIN/1.7 3 M2 03/22/2025 6:52 PM T [facility] Comment: NOTE: eGFR is not calculated for patients <18 years of age or gender unknown. This is an estimated GFR calculation using the new CKD EPI creatinine equation without race and so does not require a correction factor for race. This estimated GFR should not be used for calculating drug doses. 03/22/2025 6:15 PM CDT [facility] Final Result [facility] [address] [place] [address], [place] [phone] * (ABNORMAL) CBC W/DIFF AUTOMATED (03/22/2025 6:15 PM CDT) WBC 10.78 4.5 - 11.0 x10'3/uL 03/22/2025 6:26 PM CDT [facility] RBC 4.84 4.70 - 6.10 x10'6/uL 03/22/2025 6:26 PM CDT [facility] HGB 15.0 14.0 - 18.0 G/DL 03/22/2025 6:26 PM CDT [facility] HCT 44.7 43.0 - 54.0 % 03/22/2025 6:26 PM CDT [facility] MCV 92.4 80.0 - 94.0 FL 03/22/2025 6:26 PM CDT [facility] MCH 31.0 27.0 - 31.0 PG 03/22/2025 6:26 PM CDT [facility] MCHC 33.6 32.0 - 36.0 G/DL 03/22/2025 6:26 PM CDT [facility] RDW 12.8 11.5 - 14.5 % 03/22/2025 6:26 PM CDT [facility] PLT 195 130 - 400 x10'3/uL 03/22/2025 6:26 PM CDT [facility] MPV 9.5 9.3 - 12.2 FL 03/22/2025 6:26 PM CDT [facility] DIFFERENTIAL TYPE AUTOMATED DIFFERENTIAL 03/22/2025 6:26 PM CDT [facility] NEUTROPHILS % 63.8 % 03/22/2025 6:26 PM CDT [facility] LYMPHOCYTES % 21.2 % 03/22/2025 6:26 PM CDT [facility] MONOCYTES % 11.0 % 03/22/2025 6:26 PM CDT [facility] EOSINOPHILS 2.7 % 03/22/2025 6:26 PM CDT [facility] BASOPHILS 0.8 % 03/22/2025 6:26 PM CDT [facility] IMMATURE GRANS % 0.5 % 03/22/20 6:26 PM CDT [facility] ABS. NEUTROPHILS 6.88 1.80 - 7.70 x10'3/uL 03/22/2025 6:26 PM CDT [facility] ABS. LYMPHOCYTES 2.28 1.00 - 4.80 x10'3/uL 03/22/2025 6:26 PM CDT [facility] ABS. MONOCYTES 1.19(H) 0.30 - 0.82 x10'3/uL 03/22/2025 6:26 PM CDT [facility] ABS. EOSINOPHILS 0.29 0.04 - 0.54 x10'3/uL 03/22/2025 6:26 PM CDT [facility] ABS. BASOPHILS 0.09(H) 0.01 - 0.08 x10'3/uL 03/22/2025 6:26 PM CDT [facility] ABS. IMMATURE GRANULOCYTES 0.05 0.00 - 0.49 x10'3/uL 03/22/2025 6:26 PM CDT [facility] 03/22/2025 6:15 PM CDT [facility] Final Result [facility] [address] [place] [address], [place] [phone] * XR FOOT LT 3V (03/22/2025 5:59 [...] 6:41 PM Narrative 03/22/2025 6:45 PM CDT [address] [address] INDICATION: Foot pain. COMPARISON: Left foot radiographs 08/20/2024 TECHNIQUE: * 3 views of the left foot. 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 No convincing radiographic evidence for osseous erosion. Marked lateral subluxation (valgus) of the first MTP joint, new since prior exam no acute fractures. Atherosclerosis. No significant soft tissue abnormality. Procedure Note Juan Ulrich DO - 03/22/[address] [address] INDICATION: Foot pain. COMPARISON: Left foot radiographs [...] 6:46 PM Narrative 03/22/2025 6:48 PM CDT [address] [address] INDICATION: Foot pain. COMPARISON: Radiographs 08/23/2010 TECHNIQUE: * 3 radiographs of the right foot. FINDINGS: Partially visualized. Tibia and fibula fixation hardware. Remote healed fracture of the distal metatarsal. No acute fractures. No osseous erosions. Soft tissue swelling of the lateral forefoot. Procedure Note Juan Ulrich DO - 03/22/2025 [facility] - [address] [address] INDICATION: Foot pain. COMPARISON: Radiographs 08/23/2010 TECHNIQUE: [...] Documents on File Type Date Recorded Patient Instructor Bridge Expl anation Advance Directives and Livin g Will 09/05/2024 2:02 PM * Full Code (Latest Code Status on File) Date Activated Date Inactivated Comments 08/20/2024 10:03 PM 09/01/2024 3:55 PM Care Teams Wash House Supervisor Relationship Specialty Start Date End Date Dennis Camejo MD PCP - General FAMILY PRACTICE 01/28/22
[2025-04-06 17:28] LABS: Hematocrit 43.1 % (42.0-52.0); Hemoglobin 13.8 g/dL (14.0-18.0); Immature Granulocyte Percent A 0.6 % (0-0.5); Lymphocytes Absolute Auto 2.74 K/mm3 (0.9-3.2); Mean Corpuscular HGB Conc 32.0 g/dl (32-36); Mean Corpuscular Hemoglobin 29.9 pg (26-34); Mean Corpuscular Volume 93.3 fl (80-100); Nucleated Red Blood Cells Absolute Auto 0.000 K/mm3 (0.0-0.012); Nucleated Red Blood Cells Perc 0.0 % (0.0-0.2); Platelet Count Result 288 k/mm3 (150-375); Red Blood Count 4.62 M/mm3 (4.6-6.20); White Blood Count 10.0 K/mm3 (4.5-10.0)
[2025-04-06 17:47] LABS: INR 1.0; Partial Thromboplastin Time 29.6 Seconds (22.3-36.8); Prothrombin Time 13.6 Seconds (11.1-14.7)
[2025-04-06 17:53] LABS: Alanine Aminotransferase 41 U/L (6-50); Albumin Level 4.3 g/dL (3.5-5.1); Alkaline Phosphatase 134 U/L (38-126); Anion Gap 8 mmol/L (4-12); Aspartate Amino Transferase 46 U/L (17-59); Bilirubin,Total 0.3 mg/dL (0.2-1.3); Blood Urea Nitrogen 14 mg/dL (9-20); Calcium 9.0 mg/dL (8.4-10.2); Carbon Dioxide 28 mmol/L (22-30); Chloride 101 mmol/L (98-107); Estimated CRCL calculation 100 ml/min; Estimated Glomerular Filt Rate > 60; Glucose 95 mg/dL (65-110); Potassium 4.2 mmol/L (3.4-5.0); Sodium 137 mmol/L (137-145); Total Protein 8.9 g/dL (6.3-8.2)
--- NOTE | 2025-04-06 19:19 | PC.NURSE ---
Pt bedside glucose is 52 juice and sandwich provided. Will recheck in 30 minutes.
[2025-04-06 21:20] VITALS: BP 132/84; PULSE 77; RESP 18; TEMP 36.9; O2SAT 98
== END 2025-04-06 21:21 | disposition home or self-care (01) ==
PROVIDERS: Nurse Practitioner Family; Emergency Provider Physician Assistant; PCP Emergency Medicine
DX: S42.011A Anterior displaced fracture of sternal end of right clavicle, initial encounter for closed fracture (principal); W01.0XXA Fall on same level from slipping, tripping and stumbling without subsequent striking against object, initial encounter; F17.210 Nicotine dependence, cigarettes, uncomplicated; F17.220 Nicotine dependence, chewing tobacco, uncomplicated; I10 Essential (primary) hypertension; E11.9 Type 2 diabetes mellitus without complications; I25.2 Old myocardial infarction
CPT/HCPCS: 36415; 71260; 73000; 80053; 82948; 85025; 85610; 85730; 99284; A4565; Q9967